=== PATIENT | male | born 1960 | race Caucasian/White ===

== ENCOUNTER 2017-10-28 18:44 | Observation (INO) | payer SELFPAY ==
--- NOTE | 2017-10-28 19:38 | RADIOLOGY REPORT (SQ) ---
EXAM DESCRIPTION: CHEST SINGLE VIEW COMPLETED DATE/TIME: 10/28/2017 7:31 pm REASON FOR STUDY: chest pain COMPARISON: 07/23/2015 EXAM PARAMETERS: NUMBER OF VIEWS: One view. TECHNIQUE: Single frontal radiographic view of the chest acquired. RADIATION DOSE: NA LIMITATIONS: None. FINDINGS: LUNGS AND PLEURA: No opacities, masses or pneumothorax. No pleural effusion. MEDIASTINUM AND HILAR STRUCTURES: No masses. Contour normal. HEART AND VASCULAR STRUCTURES: Heart normal in size. Normal vasculature. BONES: No acute findings. HARDWARE: None in the chest. OTHER: No other significant finding. IMPRESSION: NO ACUTE RADIOGRAPHIC FINDING IN THE CHEST. TECHNICAL DOCUMENTATION: JOB ID: [id number]- All Rights Reserved
[2017-10-28 19:52] LABS: ABSOLUTE BASOPHILS # (AUTO) 0.1 10^3/uL (0.0-0.2); ABSOLUTE EOSINOPHILS # (AUTO) 0.2 10^3/uL (0.0-0.6); ABSOLUTE LYMPHOCYTES (AUTO) 2.4 10^3/uL (0.5-4.7); ABSOLUTE MONOCYTES (AUTO) 0.7 10^3/uL (0.1-1.4); ABSOLUTE NEUT (AUTO) 6.2 10^3/uL (1.7-8.2); BASOPHILS % (AUTO) 0.9 % (0-2); EOSINOPHILS % (AUTO) 1.8 % (0-6); HEMATOCRIT 47.6 % (37.9-51.0); HEMOGLOBIN 16.4 g/dL (13.5-17.0); HGB HCT DIFFERENCE 1.6; LYMPHOCYTES % (AUTO) 24.8 % (13-45); MEAN CORPUSCULAR HEMOGLOBIN 30.9 pg (27.0-33.4); MEAN CORPUSCULAR HGB CONC 34.4 g/dL (32.0-36.0); MEAN CORPUSCULAR VOLUME 90 fl (80-97); MONOCYTES % (AUTO) 7.6 % (3-13); RED BLOOD COUNT 5.29 10^6/uL (4.35-5.55); RED CELL DISTRIBUTION WIDTH 14.3 % (11.5-14.0); SEGMENTED NEUTROPHILS % (AUTO) 64.9 % (42-78); WHITE BLOOD COUNT 9.5 10^3/uL (4.0-10.5)
[2017-10-28] MEDS ORDERED: HYDROCHLOROTHIAZIDE 12.5 MG CAPSULE PO ONE (20:03)
[2017-10-28] MEDS: NITROGLYCERIN 0.4 MG/TAB 25 TAB/BOTTLE SL PRN (20:09)
[2017-10-28 20:11] LABS: ANION GAP 14 (5-19); BLOOD UREA NITROGEN 21 mg/dL (7-20); CALCIUM 9.2 mg/dL (8.4-10.2); CARBON DIOXIDE 24 mmol/L (22-30); CHLORIDE 101 mmol/L (98-107); GLUCOSE 206 mg/dL (75-110); POTASSIUM 4.2 mmol/L (3.6-5.0); SODIUM 138.6 mmol/L (137-145)
[2017-10-28] MEDS ORDERED: ASPIRIN 81 MG TABLET, CHEWABLE PO ONE (20:16)
[2017-10-28] MEDS ORDERED: MORPHINE SULFATE 10 MG/ML INJ IV PRN (20:25)
[2017-10-28] MEDS ORDERED: LANSOPRAZOLE 15 MG TAB.RAP.DR PO ONE (20:26)
[2017-10-28] MEDS ORDERED: ONDANSETRON HCL INJ/PF 4 MG/2 ML SDV IV PRN (20:26)
--- NOTE | 2017-10-28 20:27 | ER Document Report ---
ED General - General Chief Complaint: Chest Pain Stated Complaint: CHEST PAIN Time Seen by Provider: 10/28/17 19:14 Notes: Patient is a 57-year-old male with a past medical history of morbid obesity, active tobacco use, diabetes, hypertension, hyperlipidemia, who presents with 3 days of left-sided chest pain intermittently radiating into his left upper extremity. Chest pain is described as a constant, throbbing, pressure-like sensation over the left chest. Nothing improves or worsens that pain. He notes that he became short of breath today which is what prompted him to come to the hospital. He denies any history of similar episodes of chest pain in the past. He had a normal stress test 4 years ago. He has never had a cardiac catheterization. He notes that he does not have a primary care doctor and is not having any of his chronic medical conditions currently managed. TRAVEL OUTSIDE OF THE [place] IN LAST 30 DAYS: No - Related Data Allergies/Adverse Reactions: No Known Drug Allergies Allergy (Verified 10/28/17 18:46) Home Medications: Current Home Medications No Home Medications 10/28/17 [History] Past Medical History - General Information source: Patient - Social History Smoking Status: Current Every Day Smoker Frequency of alcohol use: Occasional Drug Abuse: None Family History: Reviewed & Not Pertinent Patient has suicidal ideation: No Patient has homicidal ideation: No - Past Medical History Cardiac Medical History: Reports: Hx Hypertension - Untreated Renal/ Medical History: Denies: Hx Peritoneal Dialysis Psychiatric Medical History: Reports: Hx Depression Past Surgical History: Reports: Hx Orthopedic Surgery - R knee surgery - Immunizations Immunizations up to date: Yes Hx Diphtheria, Pertussis, Tetanus Vaccination: Yes Review of Systems - Review of Systems Notes: Constitutional: Negative for fever. HENT: Negative for sore throat. Eyes: Negative for visual changes. Cardiovascular: Positive for chest pain. Respiratory: Positive for shortness of breath. Gastrointestinal: Negative for abdominal pain, vomiting or diarrhea. Genitourinary: Negative for dysuria. Musculoskeletal: Negative for back pain. Skin: Negative for rash. Neurological: Negative for headaches, weakness or numbness. 10 point ROS negative except as marked above and in HPI. Physical Exam - Vital signs Vitals: Temp Pulse Resp BP Pulse Ox 98.6 F 91 20 202/111 H 96 10/28/17 19:06 10/28/17 19:06 10/28/17 19:06 10/28/17 19:06 10/28/17 19:06 Interpretation: Hypertensive Notes: PHYSICAL EXAMINATION: GENERAL: Well-appearing, well-nourished and in no acute distress. HEAD: Atraumatic, normocephalic. EYES: Pupils equal round and reactive to light, extraocular movements intact, sclera anicteric, conjunctiva are normal. ENT: nares patent, oropharynx clear without exudates. Moist mucous membranes. NECK: Normal range of motion, supple without lymphadenopathy LUNGS: Breath sounds clear to auscultation bilaterally and equal. No wheezes rales or rhonchi. HEART: Regular rate and rhythm without murmurs ABDOMEN: Soft, nontender, normoactive bowel sounds. No guarding, no rebound. No masses appreciated. EXTREMITIES: Normal range of motion, no pitting or edema. No cyanosis. NEUROLOGICAL: No focal neurological deficits. Moves all extremities spontaneously and on command. PSYCH: Normal mood, normal affect. SKIN: Warm, Dry, normal turgor, no rashes or lesions noted. Course - Re-evaluation Re-evalutation: 10/28/17 20:22 Patient presents with a chest pain history that is somewhat worrisome for a cardiac origin particularly given his extensive risk factors and absence of any outpatient primary care to manage these chronic conditions. Patient presents with 3 days of left-sided chest pain with intermittent radiation to the left arm and today developed shortness of breath. EKG does not show any acute ischemic changes but does show some T-wave flattening in the lateral leads that was not present on EKG from 2015. Patient also has a history of diabetes, hypertension, and morbid obesity. He is also an active smoker. He is not managing any of these chronic conditions. His troponin also returns at an indeterminate level at 0.051. Chest pain relieved with nitroglycerin. Heart score is 6 and patient will be admitted as he is quite high risk HEART Score: History:1 EC Age:1 Risk Factors:2 Troponin:1 Total: 6 - Vital Signs Vital signs: Temp Pulse Resp BP Pulse Ox 97.6 F 78 20 167/93 H 99 10/29/17 00:04 10/29/17 00:04 10/29/17 00:04 10/29/17 00:04 10/29/17 00:04 - Laboratory Result Diagrams: 10/28/17 19:35 10/28/17 19:35 Laboratory results interpreted by me: 10/28/17 10/28/17 10/28/17 19:35 19:35 19:35 RDW 14.3 H BUN 21 H Glucose 206 H Hemoglobin A1c % 7.4 H - Diagnostic Test Radiology reviewed: Image reviewed, Reports reviewed Radiology results interpreted by me: 10/28/17 20:27 Chest x-ray: No acute infiltrate or pneumothorax - EKG Interpretation by Me Additional EKG results interpreted by me: 10/28/17 20:27 Normal sinus rhythm. T-wave flattening in V4 through 6 not present on a prior EKG from 2015. No ST elevations or depressions. QTC is 480 Discharge - Discharge Clinical Impression: Malignant hypertensive urgency, Tobacco dependency, Morbid obesity Chest pain Qualifiers: Chest pain type: unspecified Qualified Code(s): R07.9 - Chest pain, unspecified Diabetes mellitus type II, uncontrolled Qualifiers: Diabetes mellitus complication status: with unspecified complications Diabetes mellitus intermediate designer insulin use: without intermediate designer use Qualified Code(s): E11.8 - Type 2 diabetes mellitus with unspecified complications Condition: Fair Disposition: ADMITTED OBSERVATION Admitting Provider: Hospitalist [facility] Unit Admitted: Telemetry
[2017-10-28] MEDS ORDERED: NITROGLYCERIN 2% OINTMENT 1 GM PACKET TP ONE (21:00)
[2017-10-28] MEDS: LOSARTAN POTASSIUM 25 MG TABLET PO SCH (21:04)
[2017-10-28] MEDS: ATORVASTATIN CALCIUM 40 MG TABLET PO SCH (21:04)
[2017-10-28] MEDS: METOPROLOL SUCCINATE 25 MG TAB.SR.24H PO SCH (21:05)
[2017-10-28] MEDS: ENOXAPARIN SODIUM INJ 150 MG/1 ML DISP.SYRIN SUBCUT SCH (21:20)
--- NOTE | 2017-10-28 21:54 | EKG REPORT ---
SEVERITY:- ABNORMAL ECG - SINUS RHYTHM BORDERLINE LEFT AXIS DEVIATION CONSIDER ANTEROSEPTAL INFARCT ABNORMAL T, CONSIDER ISCHEMIA, LATERAL LEADS BORDERLINE PROLONGED QT INTERVAL : Confirmed by: Carmencita Garibay 28-Oct-2017 21:53:49
[2017-10-28 21:55] LABS: URINE BARBITURATES SCREEN NEGATIVE; URINE METHADONE SCREEN NEGATIVE; URINE PHENCYCLIDINE SCREEN NEGATIVE
--- NOTE | 2017-10-28 21:55 | EKG REPORT ---
SEVERITY:- ABNORMAL ECG - SINUS RHYTHM FIRST DEGREE AV BLOCK LEFT ATRIAL ABNORMALITY CONSIDER ANTEROSEPTAL INFARCT ABNORMAL T, CONSIDER ISCHEMIA, LATERAL LEADS BORDERLINE PROLONGED QT INTERVAL : Confirmed by: Carmencita Garibay 28-Oct-2017 21:54:21
[2017-10-28 21:58] LABS: CREATINE KINASE MB 2.29 ng/mL (<4.55); TROPONIN I 0.05 ng/mL
[2017-10-28 22:28] LABS: URINE OPIATES LOW UNCONFIRMED POSITIVE
[2017-10-28] MEDS ORDERED: LEVOTHYROXINE SODIUM 0.1 MG TABLET PO ONE (23:02)
[2017-10-28] MEDS ORDERED: ENALAPRILAT DIHYDRATE INJ/PF 2.5 MG/2 ML SDV IV ONE ×2 (23:03→23:38)
[2017-10-28] MEDS: NITROGLYCERIN 2% OINTMENT 1 GM PACKET TP SCH (23:56)
[2017-10-29] MEDS ORDERED: DEXTROSE 50%-WATER 25 GM/50 ML DISP.SYRIN IV PRN ×2 (00:30)
[2017-10-29] MEDS ORDERED: GLUCAGON,HUMAN RECOMB 1 MG INJ IM PRN (00:30)
[2017-10-29] MEDS ORDERED: DEXTROSE 40% GEL 15 GM TUBE PO PRN ×2 (00:30)
[2017-10-29] MEDS ORDERED: INSULIN LISPRO 100 UNIT/ML 3 ML VIAL SUBCUT PRN (00:30)
[2017-10-29 00:32] LABS: FREE T3 3.86 pg/mL (2.77-5.27)
[2017-10-29] MEDS: MORPHINE SULFATE 10 MG/ML INJ IV PRN ×5 (00:37→21:08)
[2017-10-29] MEDS ORDERED: ENALAPRILAT DIHYDRATE INJ/PF 2.5 MG/2 ML SDV IV PRN (00:39)
--- NOTE | 2017-10-29 00:41 | PDOC H&P ---
History of Present Illness Admission Date/PCP: 10/28/17 20:26 History of Present Illness: SONIYA LUEVANO is a 57 year old male with past medical history of Graves' disease status post ablation then hypothyroid, diabetes mellitus, hypertension, TIA, tobacco abuse who currently takes no medication who presents to the emergency department 3 days of left-sided chest pain. Reports that it is a chest heaviness and kind of a dull throb that radiates to his left arm. He reports it has been constant over the last 3 days. He reports associated diaphoresis and shortness of breath. He does report a cough that is productive of clear sputum and reports that he has been trying to quit smoking. He believed he did not need medication because he has been intentionally trying to lose weight. He reports a 50 pound weight loss over the past year. Patient reports no exacerbating or alleviating factors. He is referred to the hospitalist service for chest pain Past Medical History Cardiac Medical History: Reports: Hyperlipidema, Hypertension - Untreated Endocrine Medical History: Reports: Diabetes Mellitus Type 2, Hyperthyroidism, Hypothyroidism, Obesity Psychiatric Medical History: Reports: Depression Past Surgical History Past Surgical History: Reports: Orthopedic Surgery - R knee surgery Social History Smoking Status: Current Every Day Smoker Cigarettes Packs Per Day: 1 Frequency of Alcohol Use: None Hx Recreational Drug Use: Yes - SINCE Drugs: Cocaine, Marijuana, Other Hx Prescription Drug Abuse: No - Advance Directive Resuscitation Status: Do Not Resuscitate Surrogate healthcare decision maker:: Jevon or Ambika Guaman, friends Family History Family History: None Parental Family History Reviewed: No - Has not spoken to his family since he was a child Children Family History Reviewed: No Sibling(s) Family History Reviewed.: No Medication/Allergy Home Medications: No Home Medications 10/28/17 Allergies/Adverse Reactions: No Known Drug Allergies Allergy (Verified 10/28/17 18:46) Review of Systems Constitutional: ABSENT: chills, fever(s), headache(s), weight gain, weight loss Eyes: ABSENT: visual disturbances Ears: ABSENT: hearing changes Cardiovascular: PRESENT: chest pain. ABSENT: dyspnea on exertion, edema, orthropnea, palpitations Respiratory: PRESENT: cough, dyspnea. ABSENT: hemoptysis, sputum Gastrointestinal: ABSENT: abdominal pain, constipation, diarrhea, hematemesis, hematochezia, nausea, vomiting Genitourinary: ABSENT: dysuria, hematuria Musculoskeletal: ABSENT: joint swelling Integumentary: ABSENT: rash, wounds Neurological: ABSENT: abnormal gait, abnormal speech, confusion, dizziness, focal weakness, syncope Psychiatric: ABSENT: anxiety, depression, homidical ideation, suicidal ideation Endocrine: ABSENT: cold intolerance, heat intolerance, polydipsia, polyuria Hematologic/Lymphatic: ABSENT: easy bleeding, easy bruising Physical Exam Vital Signs: Temp Pulse Resp BP Pulse Ox 98.6 F 91 26 H 160/103 H 97 10/28/17 19:06 10/28/17 19:06 10/28/17 21:16 10/28/17 21:16 10/28/17 21:16 General appearance: PRESENT: mild distress - Diaphoretic and acutely ill- appearing, morbidly obese, well-developed, well-nourished Head exam: PRESENT: atraumatic, normocephalic Eye exam: PRESENT: conjunctiva pink, EOMI, periorbital swelling, PERRLA. ABSENT : scleral icterus Ear exam: PRESENT: normal external ear exam Mouth exam: PRESENT: moist, tongue midline Neck exam: ABSENT: JVD, lymphadenopathy, thyromegaly, tracheal deviation Respiratory exam: PRESENT: clear to auscultation rachell, symmetrical, tachypnea, unlabored. ABSENT: accessory muscle use, rales, retraction, rhonchi, wheezes Cardiovascular exam: PRESENT: RRR, +S1, +S2, tachycardia. ABSENT: diastolic murmur, gallop, rubs, systolic murmur Pulses: PRESENT: normal dorsalis pedis pul Vascular exam: PRESENT: normal capillary refill GI/Abdominal exam: PRESENT: normal bowel sounds, soft. ABSENT: distended, firm , guarding, mass, Fitzgerald's sign, organolmegaly, rebound, rigid, tenderness Rectal exam: PRESENT: deferred Extremities exam: PRESENT: full ROM, +1 edema. ABSENT: calf tenderness, clubbing Neurological exam: PRESENT: alert, awake, oriented to person, oriented to place , oriented to time, oriented to situation, CN II-XII grossly intact. ABSENT: motor sensory deficit Psychiatric exam: PRESENT: appropriate affect, normal mood. ABSENT: homicidal ideation, suicidal ideation Skin exam: PRESENT: dry, intact, warm. ABSENT: cyanosis, rash Results Laboratory Results: 10/28/17 10/28/17 10/28/17 19:35 19:35 19:35 WBC 9.5 Hgb 16.4 Hct 47.6 Plt Count 190 Sodium 138.6 Potassium 4.2 Chloride 101 Carbon Dioxide 24 Anion Gap 14 BUN 21 H Creatinine 1.20 Glucose 206 H Hemoglobin A1c % Calcium 9.2 Troponin I 0.051 TSH U Marijuana (THC) Screen 10/28/17 10/28/17 10/28/17 19:35 20:53 21:23 WBC Hgb Hct Plt Count Sodium Potassium Chloride Carbon Dioxide Anion Gap BUN Creatinine Glucose Hemoglobin A1c % 7.4 H Calcium Troponin I TSH 40.00 H U Marijuana (THC) Screen UNCONFIRMED POSITIVE EKG Comments: V3 through V6 T-wave inversions Impressions: Chest X-Ray 10/28/17 19:16 IMPRESSION: NO ACUTE RADIOGRAPHIC FINDING IN THE CHEST. Status: Imported from PACS Assessment & Plan - Diagnosis (1) Chest pain Qualifiers: Chest pain type: unspecified Qualified Code(s): R07.9 - Chest pain, unspecified Is this a current diagnosis for this admission?: Yes Plan: Place patient on telemetry observation. Monitor for arrhythmia or ST segment changes. Initiate patient on treatment dose Lovenox. Initiate patient on metoprolol, Lipitor, Cozaar, oxygen, nitroglycerin, morphine , and aspirin. Serial cardiac enzymes every 6 hours. Testing lipid panel in the morning. Will obtain stress test tomorrow due to patient's risk factors and concerning history of chest pain. (2) Malignant hypertensive urgency Is this a current diagnosis for this admission?: Yes Plan: Place patient on as needed enalapril (3) Hypothyroidism Is this a current diagnosis for this admission?: Yes Plan: We will start patient on Synthroid 0.1 mcg p.o. daily (4) Diabetes mellitus type II, uncontrolled Qualifiers: Diabetes mellitus complication status: with unspecified complications Diabetes mellitus senior care insulin use: without senior care use Qualified Code( s): E11.8 - Type 2 diabetes mellitus with unspecified complications; E11.65 - Type 2 diabetes mellitus with hyperglycemia; E11.65 - Type 2 diabetes mellitus with hyperglycemia; E11.65 - Type 2 diabetes mellitus with hyperglycemia; E11.65 - Type 2 diabetes mellitus with hyperglycemia Is this a current diagnosis for this admission?: Yes Plan: We will likely initiate patient on metformin and possibly glyburide. 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 Counseling lasted longer than 3 minutes. (6) NATHAN (obstructive sleep apnea) Is this a current diagnosis for this admission?: Yes Plan: Likely undiagnosed. Referred for outpatient sleep study (7) Morbid obesity Is this a current diagnosis for this admission?: Yes Plan: Patient is advised to engage actively in weight loss and increase activity as tolerated under the care of his primary care physician. (8) Noncompliance Is this a current diagnosis for this admission?: Yes Plan: Patient was diagnosed with the bulk of these problems approximately 2 years ago during an inpatient hospitalization at that time. Patient has not continued his medications as instructed at that time. He also did not go for follow-up. 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
[2017-10-29 03:26] LABS: HEMATOCRIT 46.6 % (37.9-51.0); HEMOGLOBIN 15.6 g/dL (13.5-17.0); HGB HCT DIFFERENCE 0.2; MEAN CORPUSCULAR HEMOGLOBIN 30.4 pg (27.0-33.4); MEAN CORPUSCULAR HGB CONC 33.6 g/dL (32.0-36.0); MEAN CORPUSCULAR VOLUME 90 fl (80-97); RED BLOOD COUNT 5.15 10^6/uL (4.35-5.55); RED CELL DISTRIBUTION WIDTH 13.8 % (11.5-14.0); WHITE BLOOD COUNT 10.3 10^3/uL (4.0-10.5)
[2017-10-29 03:39] LABS: CREATINE KINASE 80 U/L (55-170); Direct HDL 48 mg/dL (>40); TRIGLYCERIDES 202 mg/dL (<150)
[2017-10-29 03:52] LABS: CREATINE KINASE MB 2.35 ng/mL (<4.55); TROPONIN I 0.043 ng/mL
[2017-10-29 03:56] LABS: DIRECT LDL 154 mg/dL (<100)
[2017-10-29 03:59] LABS: VLDL CHOLESTEROL 40.4 mg/dL (10-31)
[2017-10-29] MEDS: NITROGLYCERIN 2% OINTMENT 1 GM PACKET TP SCH ×3 (05:00→17:59)
[2017-10-29] MEDS: LEVOTHYROXINE SODIUM 0.1 MG TABLET PO SCH (05:18)
--- NOTE | 2017-10-29 06:46 | EKG REPORT ---
SEVERITY:- ABNORMAL ECG - SINUS RHYTHM FIRST DEGREE AV BLOCK LEFT ATRIAL ABNORMALITY CONSIDER ANTEROSEPTAL INFARCT ABNORMAL T, CONSIDER ISCHEMIA, LATERAL LEADS BORDERLINE PROLONGED QT INTERVAL : Confirmed by: Carmencita Garibay 29-Oct-2017 06:45:37
[2017-10-29] MEDS ORDERED: HYDRALAZINE HCL INJ/PF 20 MG/1 ML SDV IV PRN (08:13)
[2017-10-29] MEDS: LOSARTAN POTASSIUM 25 MG TABLET PO SCH ×2 (09:17→21:08)
[2017-10-29] MEDS: ASPIRIN 325 MG TABLET, ENT COATED PO SCH (09:17)
[2017-10-29] MEDS: DOCUSATE SODIUM 100 MG CAPSULE PO SCH (09:17)
[2017-10-29] MEDS: ENOXAPARIN SODIUM INJ 150 MG/1 ML DISP.SYRIN SUBCUT SCH ×2 (09:25→21:08)
[2017-10-29] MEDS: METOPROLOL SUCCINATE 25 MG TAB.SR.24H PO SCH (09:26)
[2017-10-29 09:31] LABS: APPEARANCE,URINE CLEAR; BILIRUBIN,URINE NEGATIVE (NEGATIVE); GLUCOSE, URINE NEGATIVE (NEGATIVE); KETONES,URINE NEGATIVE (NEGATIVE); LEUKOCYTE ESTERASE,URINE NEGATIVE (NEGATIVE); NITRITE,URINE NEGATIVE (NEGATIVE); PROTEIN,URINE 30 mg/dL (NEGATIVE); URINE SPECIFIC GRAVITY 1.024; UROBILINOGEN,URINE NEGATIVE mg/dL (<2.0)
[2017-10-29 09:58] LABS: CREATINE KINASE MB 3.02 ng/mL (<4.55); TROPONIN I 0.035 ng/mL
[2017-10-29] MEDS ORDERED: FUROSEMIDE INJ/PF 20 MG/2 ML SDV IV ONE (11:31)
[2017-10-29] MEDS ORDERED: LISINOPRIL 10 MG TABLET PO ONE ×2 (12:00→22:30)
--- NOTE | 2017-10-29 13:36 | EKG REPORT ---
SEVERITY:- ABNORMAL ECG - SINUS RHYTHM FIRST DEGREE AV BLOCK PROBABLE LEFT ATRIAL ABNORMALITY PROBABLE ANTEROSEPTAL INFARCT, OLD BORDERLINE T WAVE ABNORMALITIES BORDERLINE PROLONGED QT INTERVAL : Confirmed by: Carmencita Garibay 29-Oct-2017 13:36:11
[2017-10-29 16:43] LABS: CREATINE KINASE MB 3.53 ng/mL (<4.55); TROPONIN I 0.031 ng/mL
--- NOTE | 2017-10-29 16:57 | PDOC PROGRESS REPORT ---
Subjective Progress Note for:: 10/29/17 Reason For Visit: CHEST PAIN Patient with multiple past medical history with noncompliance, tobacco abuse currently takes no medications at home he quit taking them. He has diabetes hypertension, morbid obesity, leg edema swelling hypothyroidism Graves' disease and TIAs. He has been having substernal chest pain for 3 days. Brought into the emergency room for evaluation and for stress test. Because his blood pressure was elevated last night and he was given a beta-johnny, stress test was on hold until tomorrow. Patient also is a smoker and a current marijuana, cocaine and opioid in his tox screen on admission and in the past. Physical Exam Vital Signs: Temp Pulse Resp BP Pulse Ox 97.4 F 71 18 168/99 H 96 10/29/17 05:04 10/29/17 05:12 10/29/17 05:04 10/29/17 05:12 10/29/17 05:06 Intake & Output 10/28/17 10/29/17 10/30/17 06:59 06:59 06:59 Intake Total 410 Balance 410 Weight 124.7 kg General appearance: PRESENT: no acute distress, well-developed, well-nourished Head exam: PRESENT: atraumatic, normocephalic Eye exam: PRESENT: conjunctiva pink, EOMI, PERRLA. ABSENT: scleral icterus Ear exam: PRESENT: normal external ear exam Mouth exam: PRESENT: moist, tongue midline Teeth exam: PRESENT: dental caries Neck exam: ABSENT: carotid bruit, JVD, lymphadenopathy, thyromegaly Respiratory exam: PRESENT: clear to auscultation rachell, decreased breath sounds, prolonged expiratory phas, unlabored, wheezes. ABSENT: rales, rhonchi Cardiovascular exam: PRESENT: RRR. ABSENT: diastolic murmur, rubs, systolic murmur Pulses: PRESENT: normal dorsalis pedis pul Vascular exam: PRESENT: normal capillary refill GI/Abdominal exam: PRESENT: distended, normal bowel sounds, soft. ABSENT: guarding, mass, organolmegaly, rebound, tenderness Rectal exam: PRESENT: deferred Extremities exam: PRESENT: full ROM. ABSENT: calf tenderness, clubbing, pedal edema Musculoskeletal exam: PRESENT: ambulatory Neurological exam: PRESENT: alert, awake, oriented to person, oriented to place , oriented to time, oriented to situation, CN II-XII grossly intact. ABSENT: motor sensory deficit Psychiatric exam: PRESENT: appropriate affect, normal mood. ABSENT: homicidal ideation, suicidal ideation Skin exam: PRESENT: dry, intact, warm. ABSENT: cyanosis, rash Results Laboratory Results: 10/29/17 02:59 10/28/17 10/28/17 10/29/17 20:53 23:42 02:59 WBC 10.3 RBC 5.15 Hgb 15.6 Hct 46.6 MCV 90 MCH 30.4 MCHC 33.6 RDW 13.8 Plt Count 179 Triglycerides Cholesterol LDL Cholesterol Direct VLDL Cholesterol HDL Cholesterol TSH 40.00 H Free T4 0.72 L Free T3 pg/mL 3.86 10/29/17 02:59 WBC RBC Hgb Hct MCV MCH MCHC RDW Plt Count Triglycerides 202 H Cholesterol 219.80 H LDL Cholesterol Direct 154 H VLDL Cholesterol 40.4 H HDL Cholesterol 48 TSH Free T4 Free T3 pg/mL 10/28/17 10/29/17 10/29/17 20:53 02:59 02:59 Creatine Kinase 80 CK-MB (CK-2) 2.29 2.35 Troponin I 0.050 0.043 Impressions: Chest X-Ray 10/28/17 19:16 IMPRESSION: NO ACUTE RADIOGRAPHIC FINDING IN THE CHEST. Assessment & Plan - Diagnosis (1) Morbid obesity Is this a current diagnosis for this admission?: Yes Plan: Encourage slow steady weight loss, diet modifications, increase activity with decrease in sedentary lifestyle (2) Chest pain Qualifiers: Chest pain type: unspecified Qualified Code(s): R07.9 - Chest pain, unspecified Is this a current diagnosis for this admission?: Yes Plan: EKG showed sinus rhythm, first-degree AV block, left atrial abnormality, consider anteroseptal infarct, abnormal T consider ischemia lateral leads, borderline prolonged QT interval, coronary etiologies consult Dr. Griffiths possible stress test in am (3) Malignant hypertensive urgency Is this a current diagnosis for this admission?: Yes Plan: Please do not give patient beta blockers for high blood pressure throughout the night for delay in treatment for stress (4) Drug abuse Plan: Patient was counseled regarding the need to cessation of illegal drug use (5) Diabetes mellitus type II, uncontrolled Qualifiers: Diabetes mellitus complication status: with oral complications Diabetes mellitus shelter insulin use: without shelter use Is this a current diagnosis for this admission?: Yes Plan: Poorly controlled diabetes will put in place and on insulin for coverage and would better manage (6) Noncompliance Is this a current diagnosis for this admission?: Yes Plan: Lifestyle modification encouraged and medical compliance (7) NATHAN (obstructive sleep apnea) Is this a current diagnosis for this admission?: Yes - Plan Summary Plan Summary: Stress test for her in the a.m. by Dr. Griffiths appreciate cardiology's input , change patient to lisinopril 20 mg p.o. twice daily he can have a one-time order hydralazine IV to bring his blood pressure down. Lasix 20 mg IV 1 today.
[2017-10-29] MEDS: ATORVASTATIN CALCIUM 40 MG TABLET PO SCH (21:08)
[2017-10-29 21:52] LABS: CREATINE KINASE MB 3.23 ng/mL (<4.55); TROPONIN I 0.034 ng/mL
[2017-10-29] MEDS ORDERED: LISINOPRIL 10 MG TABLET PO SCH (22:00)
[2017-10-29] MEDS: LISINOPRIL 10 MG TABLET PO SCH (22:53)
--- NOTE | 2017-10-29 23:04 | CONSULTATION REPORT E ---
Consultation Report NAME: SONIYA LUEVANO : 1960 AGE: 57Y DATE: 305 A TO: DANI NICOLE M.D. FROM: TRISTIN DE LA TORRE M.D. Requesting Physician REASON FOR CONSULTATION: Uncontrolled hypertension, chest pressure, shortness of breath and abnormal EKG. HISTORY OF PRESENT ILLNESS: Patient is a 57-year-old male with a past history of Graves disease, status post ablation; history of hypertension; diabetes mellitus; obstructive sleep apnea on CPAP, who states that due to financial reasons, stopped taking all his medications. His belief was that he was trying to lose weight and with losing weight, he thought he may not need medication for his blood pressure. The patient, since the last 3 days, has been having chest pressure with shortness of breath, which increased with exertion. The chest pressure lasted for about a half an hour to 1 hour of time, but was recurrent and occurred over 3 days. He also has diaphoresis. The patient denies any palpitations. There is no PND, orthopnea or syncope, TIA or CVA symptoms. The patient, when he came in, his blood pressure was elevated at 160/103. At present, the patient has no chest pressure or discomfort. There is no leg edema. There is no PND or orthopnea. The patient states that there is no recurrence of symptoms of TIA or CVA. PAST MEDICAL HISTORY: 1. History of hyperlipidemia. 2. History of diabetes mellitus type 2. He stopped taking his antidiabetic medications. 3. History of hyperthyroidism, status post thyroid ablation and the patient is now in hypothyroid state and is on replacement. 4. History of morbid obesity. 5. History of sleep apnea on CPAP. 6. The patient states many years ago he had a left facial droop, which lasted for about 1-1/2 days, and was told that he had a TIA. There was no recurrence. Whether this was a TIA or a Banerjee palsy is not clear, since records are not available. 7. He has no anxiety or depression. 8. There is no history of COPD or asthma, but the patient is a smoker. 9. There is no history of chronic kidney disease. PAST SURGICAL HISTORY: Positive for right knee surgery. FAMILY HISTORY: He states that he has not spoken to his family since he was a child, and hence not available. ALLERGIES: He has no known allergies. SOCIAL HISTORY: He is a current every day smoker. He smokes 1 pack of cigarettes per day. He is trying to quit. This patient is a FULL CODE. He states that his Religion brother and Religion sister are his surrogate healthcare decision-makers. MEDICATIONS: 1. Aspirin 325 mg p.o. daily. 2. Atorvastatin 40 mg p.o. at bedtime. 3. Hypoglycemic precautions with glucose 15 grams and 30 grams p.o. p.r.n. hypoglycemia. 4. Dextrose 50% 12.5 grams IV and 25 grams IV p.r.n. hypoglycemia. 5. Colace 100 mg p.o. daily. 6. She did get Vasotec 2.5 mg IV x1 and also is on Vasotec 2.5 mg IV q.6 hours p.r.n. 7. Lovenox 125 mg subcutaneously q.12 hours. 8. Lasix 20 mg IV x1. 9. Glucagon 1 mg IM p.r.n. hypoglycemia. 10. Hydralazine 10 mg IV q.8 hours p.r.n. 11. Accu-Cheks t.i.d. with sliding scale insulin coverage. 12. Levothyroxine 0.1 mg p.o. q. 6:00 a.m. 13. Lisinopril 20 mg p.o. x1 and 20 mg p.o. q.12 hours. 14. Losartan 25 mg p.o. q.12 hours. 15. Metoprolol 25 mg p.o. q.12 hours. 16. Nitropaste 2 inches ointment, 1 gram to chest wall q.6 hours. 17. Zofran 4 mg IV q.6 hours p.r.n. REVIEW OF SYSTEMS: CONSTITUTIONAL: Denies any fevers, chills or rigors. Complains of generalized weakness and fatigue. HEAD: Denies headaches or head injury. There is no dizziness. EYES: No history of amblyopia or diplopia. No history of amaurosis fugax. EARS: No history of hearing loss. No history of tinnitus. No history of recurrent ear infection. NOSE: No deviated nasal septum. No inflammation of the nasal mucous membrane. No history of hayfever. No history of nasal polyps. No history of nosebleeds. MOUTH: No history of altered taste sensation. No ulcers in the mouth. No bleeding to the gums. THROAT: There is no odynophagia or dysphagia. No history of recurrent sore throats. SKIN: There is no pruritus or yellowish discoloration of the skin. No history of skin cancer. No psoriasis. NECK: No neck pain. No painful or painless swelling of the leg. No goiter. LUNGS: The patient states that he has been having cough productive of clear sputum. There is no hemoptysis. There is no history of asthma or COPD. No history of pulmonary embolism. No history of pleuritic chest pain. No symptoms suggestive of upper respiratory infection or lower respiratory tract infection. History of sleep apnea on CPAP. CARDIAC: History of hypertension present. No history of DC. History of chest pressure, with exertional increase, with shortness of breath and diaphoresis since the last 3 days; may be related to his uncontrolled hypertension. No history of syncope. No history of palpitations. No history of leg edema. No history of PND or orthopnea. No prior history of coronary artery disease or DC. No prior history of congestive heart failure. GASTROINTESTINAL: No history of GERD. No history of peptic ulcer disease. No history of GI bleed. No history of fatty food intolerance. No abdominal pain. No altered bowel movements. MUSCULOSKELETAL: Denies arthritis or collagenous vascular disease. RENAL: No history of chronic kidney disease. No symptoms of UTI. No history of hematuria, pyuria or dysuria. No symptoms of enlarged prostate. 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 History of sleep apnea on CPAP. No history of headaches, migraines or seizures. No history of gait imbalance. PSYCHIATRIC: No history of anxiety or depression. No suicidal ideation. No history of homicidal ideation. VASCULAR: No history of calf or buttock claudication. No history of DVT. HEMATOLOGIC: No history of bleeding diathesis. No history of clotting disorders. PHYSICAL EXAMINATION: GENERAL: The patient is morbidly obese, but well-groomed. VITAL SIGNS: His temperature is 97.2 degrees Fahrenheit, pulse is 66 beats per minute, blood pressure is 116/99, respirations are 20 per minute. O2 sats are 99% on room air. HEAD: Atraumatic, normocephalic. EYES: Pupils are equal, round, regular, reactive to light and accommodation. Extraocular movements are normal. There is no conjunctival pallor. There is no scleral icterus. EARS: Tympanic membranes are intact. External auditory canals are clear. NOSE: There is no deviated nasal septum. There is no inflammation of the nasal mucosa. MOUTH: Mucous membranes of the mouth are moist. Tongue is moist. There are no ulcers. There is no bleeding from the gums. THROAT: There is no redness of the oropharynx. There are no exudates. SKIN: There are no skin rashes. There is no petechia or ecchymosis. There are no skin lesions. NECK: *------* There is no goiter. Trachea is central. LUNGS: Clear to auscultation and percussion. HEART: S1, S2 are heard. There is no S3 gallop. There is no S4 gallop. There is a systolic murmur at the left sternal border of the apex. There is no rub. ABDOMEN: Soft, nontender. There is no hepatosplenomegaly. Bowel sounds are well-heard. Abdomen is obese. There are no tender areas or masses. There is no hepatosplenomegaly. There is no rebound, guarding or rigidity. EXTREMITIES: Femorals are diminished. There are no femoral bruits. Leg pulses are diminished. There is no pedal edema. There is no DVT or cellulitis. There is no calf tenderness. There is no cyanosis or clubbing. CENTRAL NERVOUS SYSTEM: The patient is conscious, awake, alert, oriented x3, with no focal deficits. PSYCHIATRIC: The patient's judgment and insight are intact. His affect is normal. LABORATORY DATA: The patient's white count is 10,300, hemoglobin is 15.6, hematocrit is 46.6, platelet count is 179,000. The patient's urine opiate, methadone, barbiturates, phencyclidine, amphetamine, benzodiazepine, cocaine screen and marijuana screen in the urine are all negative. The patient's sodium is 138.6, potassium is 4.2, chloride is 101, CO2 is 24. The patient's BUN is 21, creatinine is 1.20. GFR is greater than 60. Glucose is 206. The patient's Troponin I is negative/indeterminate at 0.051, 0.050, 0.035, 0.031. The patient's TSH is 40, which is high. Free T4 is low at 0.72. Free T3 is 3.86. The patient's triglycerides are 2.02. His LDL cholesterol is elevated at 154. His HDL cholesterol is 48. The patient's initial electrocardiogram on the showed sinus rhythm, first-degree AV block, left atrial abnormality, consider anteroseptal infarct with lead placement, abnormal *------* ischemia, lateral leads. His subsequent EKGs are unchanged with evidence of lateral wall ischemia, including today's EKG. The patient's chest x-ray shows no acute findings. IMPRESSION: 1. Exertional chest pressure with shortness of breath and diaphoresis, with normal EKG, increases with exertion. Patient with multiple risk factors for coronary artery disease. Since a myocardial infarction has been ruled out, would strongly recommend the patient to have an intravenous Lexiscan Cardiolite stress test, which will be set up for tomorrow. Would recommend continuing the patient's aspirin and his anti-lipid medication. Continue metoprolol and his lisinopril and angiotensin-converting enzyme inhibitor. 2. Malignant hypertension. At present, blood pressure is slightly better. Would recommend stopping the patient's angiotensin receptor johnny and increasing the patient's angiotensin-converting enzyme to 40 mg p.o. b.i.d. Would stop the patient's Cozaar. 3. Abnormal EKG. Patient would most likely need an intravenous Lexiscan Cardiolite stress test. 4. Hypothyroidism. Patient's TSH is very much elevated. Continue replacement of thyroid in the form of Synthroid/levothyroxine. 5. Diabetes mellitus type 2, uncontrolled. Continue his current anti-diabetic medications. 6. Tobacco dependency. Patient has been counseled to stop smoking. Three minutes spent on this. Alternative methods for cessation of tobacco have been discussed with the patient. 7. Obstructive sleep apnea. Continue continuous positive airway pressure. 8. Morbid obesity. The patient, once it is proven he does not have any significant coronary artery disease, will be asked to follow a regular exercise program to lose weight. 9. Noncompliance. The importance of taking medication has been discussed with the patient. The risks of myocardial infarction, arrhythmia, sudden , congestive heart failure, development of cardiomyopathy, have been discussed with the patient in detail, if he does not take his antihypertensive, antidiabetic and thyroid replacement medication. Note that the patient was seen at 8:00 this morning and 45 minutes were spent on this patient. More than 50% of the time was spent on direct patient care. His medications have been reviewed and medications adjusted. Also discussed with other care-giving providers on the case. The procedure of IV Lexiscan has been discussed with the patient in detail. Note, medical decision-making is of high complexity. Discussed with other care-giving providers on the case and a management plan put into place for the treatment of this patient. DICTATING PHYSICIAN: DANI NICOLE M.D. [id number] PHY#: [id number] ID: [id number] JOB#: [id number] ACCT: [id number] cc:DANI NICOLE M.D. >
[2017-10-30] MEDS: NITROGLYCERIN 2% OINTMENT 1 GM PACKET TP SCH ×2 (00:18→05:21)
[2017-10-30] MEDS: LEVOTHYROXINE SODIUM 0.1 MG TABLET PO SCH (06:02)
[2017-10-30] MEDS: MORPHINE SULFATE 10 MG/ML INJ IV PRN ×4 (06:03→20:44)
[2017-10-30] MEDS: ASPIRIN 325 MG TABLET, ENT COATED PO SCH (10:25)
[2017-10-30] MEDS: DOCUSATE SODIUM 100 MG CAPSULE PO SCH (10:25)
[2017-10-30] MEDS: LISINOPRIL 10 MG TABLET PO SCH ×2 (10:25→23:53)
[2017-10-30] MEDS: ENOXAPARIN SODIUM INJ 150 MG/1 ML DISP.SYRIN SUBCUT SCH ×2 (10:31→23:57)
[2017-10-30] MEDS ORDERED: REGADENOSON INJ 0.4 MG/5 ML DISP.SYRIN IV ONE (11:34)
--- NOTE | 2017-10-30 13:20 | DRAGON STRESS TEST REPORT ---
Intravenous Lexiscan Cardiolite stress test using single photon emmision computerized tomography. Date of procedure: 10/30/2017. Ordering Provider: Dr. Grisel Griffiths. Patient's status: In Patient. Indication: Chest pain, with shortness of breath and diaphoresis. Age, coronary risk factors: Hypertension, diabetes mellitus, tobacco abuse disorder, and hyperlipidemia Resting EKG: Sinus rhythm T inversion in leads I and aVL. Stress EKG: No changes of ischemia. The patient had no chest pain or discomfort, and there were no arrhythmias seen. The patient complained of dizziness transiently but was hemodynamically stable. Reason for termination: Protocol. Conclusions: Normal EKG and hemodynamic response to IV Lexiscan. Nuclear data: At rest the patient was given 16.50 millicuries of technetium 99m sestamibi injected intravenously. As per protocol rest non gated SPECT images were obtained. Subsequently the patient was given intravenous Lexiscan at a dose of 0.4 mg in 5 mL intravenously, followed by flush with normal saline. Subsequently the stress dose of 48.7 millicuries of technetium 99m sestamibi was injected intravenously. As per protocol stress gated images were obtained. Nuclear interpretation: Review of images showed that there was a perfusion defect involving the inferior wall which was more pronounced in the stress images compared with a mild perfusion defect in the rest images. This area of the inferior wall had mildly decreased motion contraction and thickening. The rest of the segments of the myocardium had normal perfusion at rest, and normal perfusion post stress with IV Lexiscan. The rest of the segments of the myocardium had normal motion, contraction, and thickening by gated study. T. I D. ratio was normal at . Computer read rest, and stress left ventricular ejection fraction were 35 %, and 33 %, respectively. Conclusion: 1. There is scintigraphic evidence of Lexiscan induced myocardial ischemia of moderate intensity involving the inferior wall in a setting of mild inferior wall scar.. 2. There is scintigraphic evidence of mild myocardial infarction/scar involving the inferior wall. Recommendations: 1. Aggressive treatment of coronary artery disease with statins aspirin beta blockers and nitrates. 2. Strongly recommend cardiac catheterization to define coronary anatomy and for possible revascularization options. 3. Please check echo for LV ejection fraction correlation. 4. Aggressive risk factor modification, and treating the underlying co- morbidities. [facility]
[2017-10-30] MEDS ORDERED: NITROGLYCERIN 10 MG (0.4 MG/HR) PATCH.TD24 TD ONE (14:30)
[2017-10-30] MEDS: NITROGLYCERIN 0.4 MG/TAB 25 TAB/BOTTLE SL PRN (20:29)
[2017-10-30] MEDS ORDERED: HYDROCHLOROTHIAZIDE 25 MG TABLET PO ONE (20:45)
--- NOTE | 2017-10-30 22:13 | PROGRESS NOTE E ---
Progress Note NAME: SONIYA LUEVANO : 1960 AGE: 57Y DATE: 10/30/2017 ROOM: 305 SUBJECTIVE: The patient denies any further chest pain or discomfort. There is no PND or orthopnea. There is no leg edema. There is no arrhythmia seen. The patient has no further shortness of breath or any symptoms suggestive of angina. There are no TIA or CVA symptoms. There is no pedal edema. The patient underwent IV Lexiscan Cardiolite stress test in the morning uneventfully. OBJECTIVE: GENERAL: The patient is morbidly obese, in no acute distress. VITAL SIGNS: He is afebrile with a temperature of 97.3 degrees Fahrenheit. Pulse is 70 beats per minute. Blood pressure 157/86, respirations are 18 per minute, 02 saturations are 97% on room air. HEENT: Head is normocephalic, atraumatic. Eyes: Pupils are equal, round, regular and reactive to light and accommodation. Extraocular movements are normal. There is no conjunctival pallor. There is no scleral icterus. ENT is negative. NECK: Supple. There is no JVD. Carotids are equal. There is no bruit. There is no lymphadenopathy. There is no goiter. There is no neck stiffness. LUNGS: Clear to auscultation and percussion without any rhonchi, rales or wheezing. HEART: S1 and S2 are heard. There is no S3 gallop. There is no S4 gallop. There is a systolic murmur in the left sternal border and apex. There is no rub. ABDOMEN: Soft, obese, nontender. There is no hepatosplenomegaly. Bowel sounds are well heard. Abdomen is obese. There are no tender areas or masses. There is no hepatosplenomegaly. There is no rebound, guarding or rigidity. EXTREMITIES: Femorals are diminished. The femorals are deep. There are no femoral bruits. Leg pulses are diminished. There is no pedal edema. There is no DVT or cellulitis. There is no calf tenderness. There is no cyanosis or clubbing. CENTRAL NERVOUS SYSTEM: The patient is conscious, awake, alert x3 with no focal deficits. PSYCHIATRIC: The patient's judgment and insight are intact. His affect is normal. DIAGNOSTIC DATA: The patient's IV Lexiscan Cardiolite stress test shows moderate reversible ischemia in a setting of mild scar involving the inferior wall. The patient's blood sugar is 146. IMPRESSION: 1. ABNORMAL CARDIOVASCULAR FUNCTION TEST, THAT IS ABNORMAL STRESS TEST WITH THE STRESS TEST SHOWING MODERATE REVERSIBLE ISCHEMIA IN A SETTING OF SCAR INVOLVING THE INFERIOR WALL. I strongly recommend cardiac catheterization in view of the patient's age and multiple risk factors for coronary artery disease. 2. EXERTIONAL CHEST PRESSURE WITH SHORTNESS OF BREATH AND DIAPHORESIS, WITH INCREASE IN EXERTION AND AN ABNORMAL STRESS TEST. Strongly recommend cardiac catheterization. Continue current medications including nitrates, beta-blockers, aspirin and statin. 3. MALIGNANT HYPERTENSION. Blood pressure much better. 4. ABNORMAL EKG. Remains stable. ST inversion in I and aVL. 5. HYPOTHYROIDISM. The patient's TSH is very much elevated. Continue thyroid replacement. 6. DIABETES MELLITUS TYPE 2, UNCONTROLLED. Continue his current anti-diabetic medication. 7. TOBACCO DEPENDENCY. The patient at present is on Nicoderm patch. The patient has been counseled to stop smoking. 8. OBSTRUCTIVE SLEEP APNEA. Continue CPAP. 9. MORBID OBESITY. Once the patient has a cardiac catheterization and we found out the coronary anatomy and subsequently the patient will be placed on an exercise program to lose weight. 10. NONCOMPLIANCE. The importance of compliance with blood pressure, diabetic and anti-lipid medications have been discussed with the patient in detail. Will recheck the patient's PT, INR, CBC, SMA-7 and TSH in the a.m. Will talk to [facility] tomorrow, that is 10/31/2017 to see if they would accept him in transfer for cardiac catheterization to be done on 11/01/2017 in [facility]. This has been discussed with the patient. The patient will be shown the cardiac catheterization teaching video. Note: 40 minutes spent on this patient with more than 50% of the time spent on direct patient care. His medications have been reviewed and labs ordered. Medical decision-making is still highly complex in view of the need for cardiac catheterization. The risks, benefits, and complications of cardiac catheterization have all been discussed with the patient. Thanking you. DICTATING PHYSICIAN: DANI NICOLE M.D. [id number] PHY#: [id number] ID: [id number] JOB#: [id number] ACCT: [id number] cc: >
[2017-10-30] MEDS: ATORVASTATIN CALCIUM 40 MG TABLET PO SCH (23:52)
[2017-10-30] MEDS: METOPROLOL SUCCINATE 25 MG TAB.SR.24H PO SCH (23:54)
[2017-10-31] MEDS: MORPHINE SULFATE 10 MG/ML INJ IV PRN ×3 (04:18→19:15)
[2017-10-31] MEDS: LEVOTHYROXINE SODIUM 0.1 MG TABLET PO SCH (05:10)
[2017-10-31 05:22] LABS: PROTHROMBIN TIME 12.9 SEC (11.4-15.4)
[2017-10-31 05:23] LABS: PARTIAL THROMBOPLASTIN TIME 41.8 SEC (23.5-35.8)
[2017-10-31 05:28] LABS: ALANINE AMINOTRANSFERASE 42 U/L (21-72); ALBUMIN 4.1 g/dL (3.5-5.0); ALKALINE PHOSPHATASE 92 U/L (38-126); ANION GAP 11 (5-19); ASPARTATE AMINO TRANSFERASE 29 U/L (17-59); BILIRUBIN,DIRECT 0.2 mg/dL (0.0-0.4); BILIRUBIN,TOTAL 0.5 mg/dL (0.2-1.3); BLOOD UREA NITROGEN 27 mg/dL (7-20); CALCIUM 9.2 mg/dL (8.4-10.2); CARBON DIOXIDE 28 mmol/L (22-30); CHLORIDE 99 mmol/L (98-107); CREATININE RESULT 1.14 mg/dL (0.52-1.25); GLUCOSE 131 mg/dL (75-110); MAGNESIUM 2.1 mg/dL (1.6-2.3); POTASSIUM 4.5 mmol/L (3.6-5.0); TOTAL PROTEIN 6.7 g/dL (6.3-8.2)
[2017-10-31] MEDS: NITROGLYCERIN 10 MG (0.4 MG/HR) PATCH.TD24 TD SCH (09:12)
[2017-10-31] MEDS: DOCUSATE SODIUM 100 MG CAPSULE PO SCH (09:14)
[2017-10-31] MEDS: ASPIRIN 325 MG TABLET, ENT COATED PO SCH (09:14)
[2017-10-31] MEDS: METOPROLOL SUCCINATE 25 MG TAB.SR.24H PO SCH ×2 (09:14→21:18)
[2017-10-31] MEDS: LISINOPRIL 10 MG TABLET PO SCH ×2 (09:14→21:17)
[2017-10-31] MEDS: HYDROCHLOROTHIAZIDE 25 MG TABLET PO SCH (09:15)
[2017-10-31] MEDS: ENOXAPARIN SODIUM INJ 150 MG/1 ML DISP.SYRIN SUBCUT SCH ×2 (09:15→21:16)
--- NOTE | 2017-10-31 12:04 | PDOC PROGRESS REPORT ---
Subjective Progress Note for:: 10/30/17 Subjective:: Chest pain rule out. Patient had a abnormal stress test waiting for the results for possible transfer by cardiology Reason For Visit: CHEST PAIN Physical Exam Vital Signs: Temp Pulse Resp BP Pulse Ox 98.2 F 72 18 166/88 H 96 10/31/17 08:56 10/31/17 08:56 10/31/17 08:56 10/31/17 08:56 10/31/17 08:56 Intake & Output 10/30/17 10/31/17 11/01/17 06:59 06:59 06:59 Intake Total 1217 2209 Balance 1217 2209 Weight 124.9 kg 122 kg General appearance: PRESENT: no acute distress, well-developed, well-nourished Head exam: PRESENT: atraumatic, normocephalic Eye exam: PRESENT: conjunctiva pink, EOMI, PERRLA. ABSENT: scleral icterus Ear exam: PRESENT: normal external ear exam Mouth exam: PRESENT: moist, tongue midline Neck exam: ABSENT: carotid bruit, JVD, lymphadenopathy, thyromegaly Respiratory exam: PRESENT: clear to auscultation rachell. ABSENT: rales, rhonchi, wheezes Cardiovascular exam: PRESENT: RRR. ABSENT: diastolic murmur, rubs, systolic murmur Pulses: PRESENT: normal dorsalis pedis pul Vascular exam: PRESENT: normal capillary refill GI/Abdominal exam: PRESENT: normal bowel sounds, soft. ABSENT: distended, guarding, mass, organolmegaly, rebound, tenderness Rectal exam: PRESENT: deferred Extremities exam: PRESENT: full ROM. ABSENT: calf tenderness, clubbing, pedal edema Neurological exam: PRESENT: alert, awake, oriented to person, oriented to place , oriented to time, oriented to situation, CN II-XII grossly intact. ABSENT: motor sensory deficit Psychiatric exam: PRESENT: appropriate affect, normal mood. ABSENT: homicidal ideation, suicidal ideation Skin exam: PRESENT: dry, intact, warm. ABSENT: cyanosis, rash Results Laboratory Results: 10/29/17 02:59 10/31/17 04:00 10/31/17 10/31/17 04:00 04:00 Sodium 138.0 Potassium 4.5 Chloride 99 Carbon Dioxide 28 Anion Gap 11 BUN 27 H Creatinine 1.14 Est GFR ( Amer) > 60 Est GFR (Non-Af Amer) > 60 Glucose 131 H Calcium 9.2 Magnesium 2.1 Total Bilirubin 0.5 AST 29 ALT 42 Alkaline Phosphatase 92 Total Protein 6.7 Albumin 4.1 TSH 24.40 H 10/28/17 10/29/17 10/29/17 20:53 02:59 02:59 Creatine Kinase 80 CK-MB (CK-2) 2.29 2.35 Troponin I 0.050 0.043 10/29/17 10/29/17 10/29/17 09:10 09:10 15:35 Creatine Kinase 80 121 CK-MB (CK-2) 3.02 Troponin I 0.035 10/29/17 10/29/17 15:35 21:00 Creatine Kinase CK-MB (CK-2) 3.53 3.23 Troponin I 0.031 0.034 Impressions: Chest X-Ray 10/28/17 19:16 IMPRESSION: NO ACUTE RADIOGRAPHIC FINDING IN THE CHEST. Assessment & Plan - Diagnosis (1) Chest pain Qualifiers: Chest pain type: unspecified Qualified Code(s): R07.9 - Chest pain, unspecified Is this a current diagnosis for this admission?: Yes Plan: EKG showed sinus rhythm, first-degree AV block, left atrial abnormality, consider anteroseptal infarct, abnormal T consider ischemia lateral leads, borderline prolonged QT interval, coronary etiologies consult Dr. 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 Will coordinate with them in the a.m. for transfer
--- NOTE | 2017-10-31 12:11 | PDOC TRANSFER SUMMARY ---
General Admission Date/PCP: 10/28/17 20:26 Resuscitation Status: Do Not Resuscitate - Transfer Diagnosis (1) Chest pain Is this a current diagnosis for this admission?: Yes Diagnosis Summary: Patient was admitted under hospitalist service for chest pain. He now request transfer to [facility] in [place] for abnormal EKG, had an abnormal stress test will need a heart catheterization per Dr. Griffiths account director. Please see cardiology workup. (2) Morbid obesity Is this a current diagnosis for this admission?: Yes (3) Malignant hypertensive urgency Is this a current diagnosis for this admission?: Yes Diagnosis Summary: Patient blood pressure improved with some IV medications. He been noncompliant in taking his home medications quit taking all of his antihypertensive meds (4) Diabetes mellitus type II, uncontrolled Is this a current diagnosis for this admission?: Yes (5) Noncompliance Is this a current diagnosis for this admission?: Yes Diagnosis Summary: Patient was brought to the hospital with acute onset of chest pain. Which was ongoing and he recommended to have frequent uses of morphine while he was here. Patient was made n.p.o. prior to transfer in the event if he needed heart catheterization and further cardiac intervention. But he went downstairs and tried to get food from the cafeteria was denied. So he is asked his family to bring him in some food today. Medical noncompliance patient abruptly stopped taking all his medications has not had any several weeks prior to this hospitalization (6) NATHAN (obstructive sleep apnea) Is this a current diagnosis for this admission?: Yes (7) Hyperlipemia, mixed Diagnosis Summary: Noncompliant with statin medications (9) Drug abuse Diagnosis Summary: Patient was positive for opioids, marijuana and a history of cocaine use - Transfer Medications Home Medications: No Home Medications 10/28/17 Transfer Medications: Current Medications Aspirin (Ecotrin 325 Mg Ec Tablet) 325 mg PO DAILY [facility] Stop: 11/28/17 09:59 Last Admin: 10/31/17 09:14 Dose: 325 mg Atorvastatin Calcium (Lipitor 40 Mg Tablet) 40 mg PO QHS [facility] Stop: 11/27/17 21:59 Last Admin: 10/30/17 23:52 Dose: 40 mg Dextrose (Dextrose Inj 50% Syringe (25 Gm/50 Ml)) 12.5 gm IV PRN PRN; Protocol PRN Reason: FOR BG 50-69 IN ALERT PATIENT Stop: 11/28/17 00:29 Dextrose (Dextrose Inj 50% Syringe (25 Gm/50 Ml)) 25 gm IV PRN PRN PRN Reason: Protocol Stop: 11/28/17 00:29 Docusate Sodium (Colace 100 Mg Capsule) 100 mg PO DAILY [facility] Stop: 11/28/17 09:59 Last Admin: 10/31/17 09:14 Dose: 100 mg Enalaprilat (Vasotec Inj/Pf 2.5 Mg/2 Ml Sdv) 2.5 mg IV Q6HP PRN PRN Reason: Systolic greater than 165 Stop: 11/28/17 00:38 Enoxaparin Sodium (Lovenox Inj 150 Mg/1 Ml Disp.Syrin) 125 mg SUBCUT Q12 [facility] Stop: 11/27/17 21:59 Last Admin: 10/31/17 09:15 Dose: 125 mg Glucagon (Glucagen Inj 1 Mg Vial) 1 mg IM PRN PRN; Protocol PRN Reason: Evaluate for BG < 70 Stop: 11/28/17 00:29 Glucose (Glutose 40% Gel 15 Gm Tube) 15 gm PO PRN PRN; Protocol PRN Reason: FOR BG 50-69 IN ALERT PATIENT Stop: 11/28/17 00:29 Glucose (Glutose 40% Gel 15 Gm Tube) 30 gm PO PRN PRN; Protocol PRN Reason: FOR BG < 50 IN ALERT PATIENT Stop: 11/28/17 00:29 Hydralazine HCl (Apresoline Inj/Pf 20 Mg/1 Ml Sdv) 10 mg IV Q3HP PRN Stop: 11/28/17 08:12 Hydrochlorothiazide (Hydrodiuril 25 Mg Tablet) 25 mg PO DAILY [facility] Stop: 11/29/17 20:44 Last Admin: 10/31/17 09:15 Dose: 25 mg Insulin Human Lispro (Humalog Insulin 100 Unit/1 Ml 3 Ml Vial) 0 - 12 unit SUBCUT ACHSP PRN PRN Reason: Protocol Stop: 11/28/17 00:29 Levothyroxine Sodium (Synthroid 0.1 Mg Tablet) 0.1 mg PO Q6AM [facility] Stop: 11/27/17 23:14 Last Admin: 10/31/17 05:10 Dose: 0.1 mg Lisinopril (Prinivil 10 Mg Tablet) 40 mg PO Q12 [facility] Stop: 11/28/17 21:59 Last Admin: 10/31/17 09:14 Dose: 40 mg Metoprolol Succinate (Toprol Xl 25 Mg Tab.Sr) 50 mg PO Q12 [facility] Stop: 11/29/17 21:59 Last Admin: 10/31/17 09:14 Dose: 50 mg Morphine Sulfate (Morphine 10 Mg/Ml Inj) 1 mg IV Q4HP PRN Stop: 11/07/17 08:30 Last Admin: 10/31/17 09:21 Dose: 1 mg Nitroglycerin (Nitro-Dur 10 Mg (0.4mg/Hr) Transdermal Patch) 1 each TD DAILY [facility] Stop: 11/30/17 09:59 Last Admin: 10/31/17 09:12 Dose: 1 each Ondansetron HCl (Zofran Inj/Pf 4 Mg/2 Ml Sdv) 4 mg IV Q6HP PRN PRN Reason: nausea Stop: 11/27/17 20:25 Last Admin: 10/29/17 05:18 Dose: 4 mg Sodium Chloride (Saline Flush 2.5 Ml Monoject Prefil Syrin) 2.5 ml IV Q8 [facility] Stop: 11/27/17 21:59 Last Admin: 10/31/17 04:18 Dose: 2.5 ml - Allergies Allergies/Adverse Reactions: No Known Drug Allergies Allergy (Verified 10/28/17 18:46) Physical Exam Vital Signs: Temp Pulse Resp BP Pulse Ox 98.2 F 72 18 166/88 H 96 10/31/17 08:56 10/31/17 08:56 10/31/17 08:56 10/31/17 08:56 10/31/17 08:56 Intake & Output 10/30/17 10/31/17 11/01/17 06:59 06:59 06:59 Intake Total 1217 2209 Balance 1217 2209 Weight 124.9 kg 122 kg General appearance: PRESENT: no acute distress, well-developed, well-nourished Head exam: PRESENT: atraumatic, normocephalic Eye exam: PRESENT: conjunctiva pink, EOMI, PERRLA. ABSENT: scleral icterus Ear exam: PRESENT: normal external ear exam Mouth exam: PRESENT: moist, tongue midline Neck exam: ABSENT: carotid bruit, JVD, lymphadenopathy, thyromegaly Respiratory exam: PRESENT: clear to auscultation rachell. ABSENT: rales, rhonchi, wheezes Cardiovascular exam: PRESENT: RRR. ABSENT: diastolic murmur, rubs, systolic murmur Pulses: PRESENT: normal dorsalis pedis pul Vascular exam: PRESENT: normal capillary refill GI/Abdominal exam: PRESENT: normal bowel sounds, soft. ABSENT: distended, guarding, mass, organolmegaly, rebound, tenderness Rectal exam: PRESENT: deferred Extremities exam: PRESENT: full ROM. ABSENT: calf tenderness, clubbing, pedal edema Neurological exam: PRESENT: alert, awake, oriented to person, oriented to place , oriented to time, oriented to situation, CN II-XII grossly intact. ABSENT: motor sensory deficit Psychiatric exam: PRESENT: appropriate affect, normal mood. ABSENT: homicidal ideation, suicidal ideation Skin exam: PRESENT: dry, intact, warm. ABSENT: cyanosis, rash Results Laboratory Results: 10/29/17 02:59 10/31/17 04:00 10/31/17 10/31/17 04:00 04:00 Sodium 138.0 Potassium 4.5 Chloride 99 Carbon Dioxide 28 Anion Gap 11 BUN 27 H Creatinine 1.14 Est GFR ( Amer) > 60 Est GFR (Non-Af Amer) > 60 Glucose 131 H Calcium 9.2 Magnesium 2.1 Total Bilirubin 0.5 AST 29 ALT 42 Alkaline Phosphatase 92 Total Protein 6.7 Albumin 4.1 TSH 24.40 H 10/28/17 10/29/17 10/29/17 20:53 02:59 02:59 Creatine Kinase 80 CK-MB (CK-2) 2.29 2.35 Troponin I 0.050 0.043 10/29/17 10/29/17 10/29/17 09:10 09:10 15:35 Creatine Kinase 80 121 CK-MB (CK-2) 3.02 Troponin I 0.035 10/29/17 10/29/17 15:35 21:00 Creatine Kinase CK-MB (CK-2) 3.53 3.23 Troponin I 0.031 0.034 Impressions: Chest X-Ray 10/28/17 19:16 IMPRESSION: NO ACUTE RADIOGRAPHIC FINDING IN THE CHEST.
--- NOTE | 2017-10-31 16:33 | PROGRESS NOTE E ---
Progress Note NAME: SONIYA LUEVANO : 1960 AGE: 57Y DATE: 10/31/2017 ROOM: 305 SUBJECTIVE: The patient denies any chest pain or discomfort. There is no PND or orthopnea. There is no arrhythmia. There are no anginal symptoms. The patient denies any leg edema. There is no PND, orthopnea or palpitations. There is no near syncope. The patient remains in sinus rhythm. OBJECTIVE: GENERAL: The patient is morbidly obese, in no acute distress. VITAL SIGNS: He is afebrile with a temperature of 98.2 degrees Fahrenheit. Pulse is 72 beats per minute. Blood pressure 166/88, respirations are 18 per minute, 02 saturations are 96% on room air. HEENT: Head is normocephalic, atraumatic. Eyes: Pupils are equal, round, regular and reactive to light and accommodation. Extraocular movements are normal. There is no conjunctival pallor. There is no scleral icterus. ENT is negative. NECK: Supple. There is no JVD. Carotids are equal. There is no bruit. There is no lymphadenopathy. There is no goiter. There is no neck stiffness. LUNGS: Clear to auscultation and percussion without any rhonchi, rales or wheezing. HEART: S1 and S2 are heard. There is no S3 gallop. There is no S4 gallop. There is a systolic murmur in the left sternal border and apex. There is no rub. ABDOMEN: Soft, obese, nontender. There is no hepatosplenomegaly. Bowel sounds are well heard. There are no tender areas or masses. There is no hepatosplenomegaly. There is no rebound, guarding or rigidity. EXTREMITIES: Femorals are diminished. The femorals are deep. There are no femoral bruits. Leg pulses are diminished. There is no pedal edema. There is no DVT or cellulitis. There is no calf tenderness. There is no cyanosis or clubbing. CENTRAL NERVOUS SYSTEM: The patient is conscious, awake, alert x3 with no focal deficits. PSYCHIATRIC: The patient's judgment and insight are intact. His affect is normal. DIAGNOSTIC DATA: The patient's sodium is 138, potassium 4.5, chloride 99, CO2 28. The patient's BUN is 27, creatinine 1.14, GFR is greater than 60, glucose is 131. The patient's calcium is 9.2, magnesium is 2.1. Liver function tests are normal. His TSH has come down 34.4, his albumin is 4.1, total protein 6.7. His glucose is 131, his prothrombin time is 12, his INR is 0.91, PTT is 41.8. IMPRESSION: 1. ABNORMAL CARDIOVASCULAR FUNCTION STRESS TEST; THAT IS, ABNORMAL STRESS TEST IV LEXISCAN CARDIOLITE WITH THE STRESS TEST SHOWING MODERATE REVERSIBLE ISCHEMIA IN A SETTING OF SCAR INVOLVING THE INFERIOR WALL. I have spoken to [facility], [facility] osteologist, Dr. Banks, who has accepted the patient for cardiac catheterization under Dr. Coreas. Continue the patient's current medications including aspirin, beta-blockers and nitrates. Note that the patient's Isuprel has been increased to 40 mg p.o. q.12 h. and his metoprolol *------* 50 mg p.o. q.12 h. We will see since the *------* has recently been increased. We will see prior to adding any more medications. 2. EXERTIONAL CHEST PRESSURE WITH SHORTNESS OF BREATH AND DIAPHORESIS, WITH INCREASE IN EXERTION AND AN ABNORMAL STRESS TEST. Will strongly recommend cardiac catheterization, which has been scheduled after discussion with the [facility] microphone boom operator. 3. MALIGNANT HYPERTENSION. Blood pressure much better but still not optimal. 4. ABNORMAL EKG. Remains stable. T inversion in I and aVL. 5. HYPOTHYROIDISM. The TSH is improved but still not back to desired levels. 7. TOBACCO DEPENDENCY. The patient at present is on Nicoderm patch. 8. OBSTRUCTIVE SLEEP APNEA. Continue CPAP. 9. MORBID OBESITY. Once the patient's coronary anatomy is known, then subsequently will schedule the patient for exercise to lose weight and also diet. 10. NONCOMPLIANCE. This has been discussed at length with the patient. Note: Thirty minutes spent on this patient with more than 50% of the time spent on direct patient care. His medications have been reviewed and the case discussed with other caregiving providers on the case. Medical decision-making is of high complexity in view of the need for cardiac catheterization on this patient. I have discussed the procedure, the benefits, risks and complications of cardiac catheterization and also the complications and risks and benefits of conscious sedation with the patient. Will sign off, and the patient will be followed up by me in the office. Thanking you. DICTATING PHYSICIAN: DANI NICOLE M.D. [id number] PHY#: [id number] ID: [id number] JOB#: [id number] ACCT: [id number] cc: >
[2017-10-31] MEDS: ATORVASTATIN CALCIUM 40 MG TABLET PO SCH (21:17)
[2017-11-01] MEDS: MORPHINE SULFATE 10 MG/ML INJ IV PRN ×2 (01:01→11:44)
[2017-11-01] MEDS: LEVOTHYROXINE SODIUM 0.1 MG TABLET PO SCH (05:46)
[2017-11-01 05:54] LABS: HEMATOCRIT 47.9 % (37.9-51.0); HEMOGLOBIN 16.6 g/dL (13.5-17.0); HGB HCT DIFFERENCE 1.9; MEAN CORPUSCULAR HEMOGLOBIN 31.3 pg (27.0-33.4); MEAN CORPUSCULAR HGB CONC 34.6 g/dL (32.0-36.0); MEAN CORPUSCULAR VOLUME 91 fl (80-97); RED BLOOD COUNT 5.29 10^6/uL (4.35-5.55); RED CELL DISTRIBUTION WIDTH 14.1 % (11.5-14.0); WHITE BLOOD COUNT 9.5 10^3/uL (4.0-10.5)
[2017-11-01 08:34] VITALS: BP 151/77
[2017-11-01] MEDS: ENOXAPARIN SODIUM INJ 150 MG/1 ML DISP.SYRIN SUBCUT SCH (10:00)
[2017-11-01] MEDS: HYDROCHLOROTHIAZIDE 25 MG TABLET PO SCH (10:00)
[2017-11-01] MEDS: LISINOPRIL 10 MG TABLET PO SCH (10:00)
[2017-11-01] MEDS: ASPIRIN 325 MG TABLET, ENT COATED PO SCH (10:00)
[2017-11-01] MEDS: METOPROLOL SUCCINATE 25 MG TAB.SR.24H PO SCH (10:00)
[2017-11-01] MEDS: NITROGLYCERIN 10 MG (0.4 MG/HR) PATCH.TD24 TD SCH (10:00)
[2017-11-01] MEDS: DOCUSATE SODIUM 100 MG CAPSULE PO SCH (10:00)
== END 2017-11-01 11:53 | disposition short-term general hospital (02) ==
LOC: ER 18:44 → EH 20:26 → 3N 21:53
PROVIDERS: ADMIT Family Medicine; ATTEND Family Medicine
PROC: HZ31ZZZ Individual Counseling for Substance Abuse Treatment, Behavioral (ICD-10-PCS; principal; 2017-10-28)
DX: R07.89 Other chest pain (principal); R94.39 Abnormal result of other cardiovascular function study; E66.01 Morbid (severe) obesity due to excess calories; I16.0 Hypertensive urgency; E11.65 Type 2 diabetes mellitus with hyperglycemia; G47.33 Obstructive sleep apnea (adult) (pediatric); E78.2 Mixed hyperlipidemia; E05.00 Thyrotoxicosis with diffuse goiter without thyrotoxic crisis or storm; F11.10 Opioid abuse, uncomplicated; F12.10 Cannabis abuse, uncomplicated; F17.210 Nicotine dependence, cigarettes, uncomplicated; I44.0 Atrioventricular block, first degree; R05 Cough; E11.638 Type 2 diabetes mellitus with other oral complications; E03.9 Hypothyroidism, unspecified; R94.31 Abnormal electrocardiogram [ECG] [EKG]; R06.02 Shortness of breath; Z68.41 Body mass index [BMI] 40.0-44.9, adult; Z91.14 Patient's other noncompliance with medication regimen; Z59.9 Problem related to housing and economic circumstances, unspecified; Z66 Do not resuscitate
CPT/HCPCS: 93005 ×3; 99285; 36415 ×4; 84439; 82553 ×2; 82962 ×4; 82550; 83735; 84443 ×2; 85025; 85027 ×2; 85610; 85730; 80048; 80053; 81001; 84484 ×2; 80307; 84481; 83036; 80061; 93017; 71010; 78452; 93010 ×2; 99406; A9500; J2785; J3490 ×11; J1940; J1815; J2270 ×5; J2405; Q9969

== ENCOUNTER 2018-02-10 14:51 | Emergency (ER) | payer SELFPAY ==
[2018-02-10] MEDS ORDERED: ASPIRIN 81 MG TABLET, CHEWABLE PO ONE (15:45)
--- NOTE | 2018-02-10 15:46 | ER Document Report ---
ED Medical Screen (RME) - General Chief Complaint: Chest Pain Stated Complaint: CHEST PAIN/LEFT ARM NUMB Time Seen by Provider: 02/10/18 15:32 Notes: 57-year-old male to emergency department chief complaint of chest pain. Recently diagnosed with [place]. Not distensible. Has been taking aspirin but nothing else. No nitro at home. States he has been having chest pain all day that radiates down his left arm. No nausea, vomiting or diarrhea. No fever. No shortness of breath. I have greeted and performed a rapid initial assessment of this patient. A comprehensive ED assessment and evaluation of the patient, analysis of test results and completion of the medical decision making process will be conducted by additional ED providers. TRAVEL OUTSIDE OF THE [place] IN LAST 30 DAYS: No - Related Data Allergies/Adverse Reactions: No Known Drug Allergies Allergy (Verified 02/10/18 14:53) Past Medical History - Social History Frequency of alcohol use: None Drug Abuse: None - Past Medical History Cardiac Medical History: Reports: Hx Hypercholesterolemia, Hx Hypertension - Untreated Endocrine Medical History: Reports: Hx Diabetes Mellitus Type 2, Hx Hyperthyroidism, Hx Hypothyroidism Renal/ Medical History: Denies: Hx Peritoneal Dialysis Psychiatric Medical History: Reports: Hx Depression Past Surgical History: Reports: Hx Orthopedic Surgery - R knee surgery - Immunizations Immunizations up to date: Yes Hx Diphtheria, Pertussis, Tetanus Vaccination: Yes History of Influenza Vaccine for 08/2017 - 01/2018 Season: Refused Physical Exam - Vital signs Vitals: Temp Pulse Resp BP Pulse Ox 98.8 F 80 22 H 179/96 H 96 02/10/18 15:00 02/10/18 15:00 02/10/18 15:00 02/10/18 15:00 02/10/18 15:00 - Notes Notes: General: Alert no acute distress HEENT: Atraumatic, normocephalic, pupils equal round react to light and accommodation, extraocular muscles are intact, nose is non tender, posterior pharynx is without erythema or exudate. Tongue is unremarkable Heart: Heart with regular rate and rhythm, no murmurs, no rubs, no clicks Lungs: Lungs clear to auscultation bilaterally, no wheezes, rhonchi, rales Abdomen: Abdomen is soft, nontender, nondistended, normal bowel sounds Neuro: cranial nerves II through XII intact, reflexes intact, sensation intact, Extremities:Moving all extremities. Equal strength bilaterally in the upper lower extremities. No significant deformity Skin: No lesions. Skin intact Psych: Normal insight. Normal judgment - General General appearance: Appears well Course - Vital Signs Vital signs: Temp Pulse Resp BP Pulse Ox 98.8 F 80 22 H 179/96 H 96 02/10/18 15:00 02/10/18 15:00 02/10/18 15:00 02/10/18 15:00 02/10/18 15:00
--- NOTE | 2018-02-10 16:14 | RADIOLOGY REPORT (SQ) ---
EXAM DESCRIPTION: CHEST SINGLE VIEW COMPLETED DATE/TIME: 02/10/2018 3:59 pm REASON FOR STUDY: chest pain COMPARISON: None. EXAM PARAMETERS: NUMBER OF VIEWS: One view. TECHNIQUE: Single frontal radiographic view of the chest acquired. RADIATION DOSE: NA LIMITATIONS: None. FINDINGS: LUNGS AND PLEURA: No opacities, masses or pneumothorax. No pleural effusion. MEDIASTINUM AND HILAR STRUCTURES: No masses. Contour normal. HEART AND VASCULAR STRUCTURES: Heart normal in size. Normal vasculature. BONES: No acute findings. HARDWARE: None in the chest. OTHER: No other significant finding. IMPRESSION: NO ACUTE RADIOGRAPHIC FINDING IN THE CHEST. TECHNICAL DOCUMENTATION: JOB ID: [id number] [email or web address]- All Rights Reserved Reading location - IP/workstation name: [email or web address]
[2018-02-10 16:45] LABS: ABSOLUTE EOSINOPHILS # (AUTO) 0.1 10^3/uL (0.0-0.6); ABSOLUTE LYMPHOCYTES (AUTO) 2.3 10^3/uL (0.5-4.7); ABSOLUTE MONOCYTES (AUTO) 0.8 10^3/uL (0.1-1.4); ABSOLUTE NEUT (AUTO) 5.9 10^3/uL (1.7-8.2); BASOPHILS % (AUTO) 0.4 % (0-2); EOSINOPHILS % (AUTO) 1.3 % (0-6); HEMATOCRIT 47.5 % (37.9-51.0); HEMOGLOBIN 15.8 g/dL (13.5-17.0); LYMPHOCYTES % (AUTO) 25.1 % (13-45); MEAN CORPUSCULAR HEMOGLOBIN 30.6 pg (27.0-33.4); MEAN CORPUSCULAR HGB CONC 33.3 g/dL (32.0-36.0); MEAN CORPUSCULAR VOLUME 92 fl (80-97); MONOCYTES % (AUTO) 8.6 % (3-13); PLATELET COUNT 206 10^3/uL (150-450); RED BLOOD COUNT 5.16 10^6/uL (4.35-5.55); RED CELL DISTRIBUTION WIDTH 14.2 % (11.5-14.0); SEGMENTED NEUTROPHILS % (AUTO) 64.6 % (42-78); TOTAL CELLS COUNTED % (AUTO) 100 %; WHITE BLOOD COUNT 9.2 10^3/uL (4.0-10.5)
[2018-02-10 17:08] LABS: ALANINE AMINOTRANSFERASE 43 U/L (21-72); ALBUMIN 4.4 g/dL (3.5-5.0); ALKALINE PHOSPHATASE 73 U/L (38-126); ANION GAP 9 (5-19); ASPARTATE AMINO TRANSFERASE 41 U/L (17-59); BILIRUBIN,DIRECT 0.3 mg/dL (0.0-0.4); BILIRUBIN,TOTAL 0.5 mg/dL (0.2-1.3); BLOOD UREA NITROGEN 17 mg/dL (7-20); CALCIUM 10.1 mg/dL (8.4-10.2); CARBON DIOXIDE 28 mmol/L (22-30); CHLORIDE 104 mmol/L (98-107); CREATINE KINASE 279 U/L (55-170); GLUCOSE 103 mg/dL (75-110); TOTAL PROTEIN 7.4 g/dL (6.3-8.2)
[2018-02-10 17:19] LABS: CREATINE KINASE MB 5.01 ng/mL (<4.55); TROPONIN I 0.024 ng/mL
--- NOTE | 2018-02-10 18:13 | EKG REPORT ---
SEVERITY:- ABNORMAL ECG - SINUS RHYTHM FIRST DEGREE AV BLOCK LEFT ATRIAL ABNORMALITY BORDERLINE LEFT AXIS DEVIATION ABNORMAL T, CONSIDER ISCHEMIA, LATERAL LEADS : Confirmed by: Akhil Asher MD 10-Feb-2018 18:12:20
[2018-02-10] MEDS ORDERED: HYDROCODONE/ACETAMINOPHEN 5-325 MG TABLET PO ONE (18:56)
--- NOTE | 2018-02-10 18:59 | ER Document Report ---
ED Cardiac - General Chief Complaint: Chest Pain Stated Complaint: CHEST PAIN/LEFT ARM NUMB Time Seen by Provider: 02/10/18 15:32 Mode of Arrival: Ambulatory Information source: Patient Notes: History of complain-57 years old male with a history of an ME 3 months ago according to him. Presents today with an episode of precordial chest pain around 9 AM radiating to left arm with left arm numbness. He says he had a cardiac cath 3 months ago and reported as normal. And since then he has lost about 70 pounds. Stop smoking. The pain is still present but not as severe as it before. Denies any other associated symptoms such as palpitation diaphoresis or difficulty in breathing. 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 Denies any fever chills or other constitutional symptoms. REVIEW OF SYSTEMS: CONSTITUTIONAL : Denies fever, chills, or sweats. Denies recent illness. EENT: Denies eye, ear, throat, or mouth pain or symptoms. Denies nasal or sinus congestion or discharge. Denies throat, tongue, or mouth swelling or difficulty swallowing. CARDIOVASCULAR: . Denies palpitations or racing or irregular heart beat. Denies ankle edema. RESPIRATORY: Denies cough, cold, or chest congestion. Denies shortness of breath, difficulty breathing, or wheezing. GASTROINTESTINAL: Denies abdominal pain or distention. Denies nausea, vomiting , or diarrhea. Denies blood in vomitus, stools, or per rectum. Denies black, tarry stools. Denies constipation. GENITOURINARY: Denies difficulty urinating, painful urination, burning, frequency, blood in urine, or discharge. MUSCULOSKELETAL: Denies back or neck pain or stiffness. Denies joint pain or swelling. SKIN: Denies rash, lesions or sores. HEMATOLOGIC : Denies easy bruising or bleeding. LYMPHATIC: Denies swollen, enlarged glands. NEUROLOGICAL: Denies confusion or altered mental status. Denies passing out or loss of consciousness. Denies dizziness or lightheadedness. Denies headache. Denies weakness or paralysis or loss of use of either side. Denies problems with gait or speech. Denies sensory loss, numbness, or tingling. Denies seizures. PSYCHIATRIC: Denies anxiety or stress. Denies depression, suicidal ideation, or homicidal ideation. ALL OTHER SYSTEMS REVIEWED AND NEGATIVE. Dictation was performed using [employer] voice recognition software PHYSICAL EXAMINATION: GENERAL: Well-appearing, well-nourished and in no acute distress. HEAD: Atraumatic, normocephalic. EYES: Pupils equal round and reactive to light, extraocular movements intact, sclera anicteric, conjunctiva are normal. ENT: Nares patent, oropharynx clear without exudates. Moist mucous membranes. NECK: Normal range of motion, supple without lymphadenopathy LUNGS: Breath sounds clear to auscultation bilaterally and equal. No wheezes rales or rhonchi. HEART: Regular rate and rhythm without murmurs Chest wall-chest wall tenderness noted over the left side of the chest wall particularly on palpation even with gentle palpation. ABDOMEN: Soft, nontender, nondistended abdomen. No guarding, no rebound. No masses appreciated. Musculoskeletal: Normal range of motion, no pitting or edema. No cyanosis. NEUROLOGICAL: Cranial nerves grossly intact. Normal speech, normal gait. Normal sensory, motor exams PSYCH: Normal mood, normal affect. SKIN: Warm, Dry, normal turgor, no rashes or lesions noted. History of complain TRAVEL OUTSIDE OF THE [place] IN LAST 30 DAYS: No - Related Data Allergies/Adverse Reactions: No Known Drug Allergies Allergy (Verified 02/10/18 14:53) Past Medical History - Social History Smoking Status: Former Smoker Frequency of alcohol use: None Drug Abuse: None Family History: Reviewed & Not Pertinent Patient has suicidal ideation: No Patient has homicidal ideation: No - Past Medical History Cardiac Medical History: Reports: Hx Hypercholesterolemia, Hx Hypertension - Untreated Endocrine Medical History: Reports: Hx Diabetes Mellitus Type 2, Hx Hyperthyroidism, Hx Hypothyroidism Renal/ Medical History: Denies: Hx Peritoneal Dialysis Psychiatric Medical History: Reports: Hx Depression Past Surgical History: Reports: Hx Orthopedic Surgery - R knee surgery - Immunizations Immunizations up to date: Yes Hx Diphtheria, Pertussis, Tetanus Vaccination: Yes Review of Systems - Review of Systems Notes: As per history of complain Physical Exam - Vital signs Vitals: Temp Pulse Resp BP Pulse Ox 98.8 F 80 22 H 179/96 H 96 02/10/18 15:00 02/10/18 15:00 02/10/18 15:00 02/10/18 15:00 02/10/18 15:00 Course - Vital Signs Vital signs: Temp Pulse Resp BP Pulse Ox 98.8 F 80 31 H 171/96 H 97 02/10/18 15:00 02/10/18 15:00 02/10/18 21:01 02/10/18 21:01 02/10/18 21:01 - Laboratory Result Diagrams: 02/10/18 19:55 02/10/18 19:55 Laboratory results interpreted by me: 02/10/18 02/10/18 02/10/18 16:18 16:18 16:18 RDW 14.2 H Creatine Kinase 279 H CK-MB (CK-2) 5.01 H 02/10/18 19:55 RDW 14.4 H Creatine Kinase CK-MB (CK-2) - EKG Interpretation by Ar EKG shows normal: Sinus rhythm Rate: Normal Rhythm: NSR - Normal sinus rhythm at the rate of 79 bpm left axis deviation, otherwise no acute ST elevation ST depression T-wave inversion noted. Discharge - Discharge Clinical Impression: Chest pain, rule out acute myocardial infarction Disposition: ELOPED
[2018-02-10 20:15] LABS: ABSOLUTE BASOPHILS # (AUTO) 0.1 10^3/uL (0.0-0.2); ABSOLUTE EOSINOPHILS # (AUTO) 0.2 10^3/uL (0.0-0.6); ABSOLUTE LYMPHOCYTES (AUTO) 2.4 10^3/uL (0.5-4.7); ABSOLUTE MONOCYTES (AUTO) 0.8 10^3/uL (0.1-1.4); BASOPHILS % (AUTO) 0.9 % (0-2); HEMATOCRIT 45.6 % (37.9-51.0); HEMOGLOBIN 15.1 g/dL (13.5-17.0); LYMPHOCYTES % (AUTO) 28.8 % (13-45); MEAN CORPUSCULAR HEMOGLOBIN 30.6 pg (27.0-33.4); MEAN CORPUSCULAR VOLUME 93 fl (80-97); MONOCYTES % (AUTO) 9.4 % (3-13); PLATELET COUNT 200 10^3/uL (150-450); RED BLOOD COUNT 4.93 10^6/uL (4.35-5.55); RED CELL DISTRIBUTION WIDTH 14.4 % (11.5-14.0); SEGMENTED NEUTROPHILS % (AUTO) 58.9 % (42-78); TOTAL CELLS COUNTED % (AUTO) 100 %; WHITE BLOOD COUNT 8.5 10^3/uL (4.0-10.5)
[2018-02-10 20:30] LABS: ALANINE AMINOTRANSFERASE 41 U/L (21-72); ALKALINE PHOSPHATASE 70 U/L (38-126); ANION GAP 10 (5-19); ASPARTATE AMINO TRANSFERASE 35 U/L (17-59); BILIRUBIN,DIRECT 0.3 mg/dL (0.0-0.4); BILIRUBIN,TOTAL 0.5 mg/dL (0.2-1.3); BLOOD UREA NITROGEN 17 mg/dL (7-20); CALCIUM 9.4 mg/dL (8.4-10.2); CARBON DIOXIDE 23 mmol/L (22-30); CHLORIDE 106 mmol/L (98-107); GLUCOSE 84 mg/dL (75-110); POTASSIUM 3.8 mmol/L (3.6-5.0); SODIUM 139.3 mmol/L (137-145); TOTAL PROTEIN 6.5 g/dL (6.3-8.2)
[2018-02-10 21:47] VITALS: BP 171/96
== END 2018-02-10 21:45 | disposition left against medical advice (07) ==
LOC: ER 14:51
DX: R07.2 Precordial pain (principal); R20.0 Anesthesia of skin; I10 Essential (primary) hypertension; I25.2 Old myocardial infarction; E11.9 Type 2 diabetes mellitus without complications; Z87.891 Personal history of nicotine dependence
CPT/HCPCS: 36415; 71045; 80053; 82550; 82553; 84484; 85025; 93005; 93010; 99281

== ENCOUNTER 2019-06-06 00:52 | Inpatient (IN) | payer SELFPAY ==
[2019-06-06] MEDS ORDERED: ASPIRIN 325 MG TABLET PO ONE (01:30)
[2019-06-06] MEDS ORDERED: IPRATROPIUM/ALBUTEROL 0.5-2.5 MG/3 ML AMPUL NEB ONE ×2 (01:51→02:53)
--- NOTE | 2019-06-06 01:52 | ER Document Report ---
ED General - General Chief Complaint: Chest Pain Stated Complaint: CHEST PAIN Time Seen by Provider: 06/06/19 01:41 Notes: Patient is a 58-year-old male with history of CAD that presents to the emergency department for chief complaint of chest pain. The patient reports that the pain started around 5:00 today prior to going into work, he states that the pain got worse while he was there. The currently rate the pain as 4 out of 10, and desc ribed as heaviness on his chest. They have had associated shortness of breath, and mild nausea. Denies any diaphoresis. Their risk factors for heart disease include history of CAD, states he had cardiac catheterization a few years ago, without stenting, he had a positive stress test at that time. He is currently not taking any medications for blood pressure, cholesterol, and has not been taking aspirin on a daily basis. He states he is a smoker and quit 3 weeks ago. He states the pain today got worse when he was at work and exerting himself, and is still present at rest currently. Past Medical History: CAD Past Surgical History: Left heart catheterization Social History: Former smoker, quit only 3 weeks ago, denies daily alcohol use, denies illicit drug use. Family History: Reviewed and noncontributory for presenting illness Allergies: Reviewed, see documented allergy list. REVIEW OF SYSTEMS: Other than noted above, the 12 point review of systems was reviewed with the patient and were negative, all pertinent findings are included in the HPI. PHYSICAL EXAMINATION: Vital signs reviewed, nursing noted reviewed. GENERAL: Patient appears uncomfortable on exam, somewhat increased work of breathing HEAD: Atraumatic, normocephalic. EYES: Eyes appear normal, extraocular movements intact, sclera anicteric, conjunctiva are normal. ENT: nares patent, oropharynx clear without exudates. Moist mucous membranes. NECK: Normal range of motion, supple without lymphadenopathy LUNGS: Diffuse wheezing throughout all lung mendoza, mild increased work of breathing. HEART: Regular rate and rhythm without murmurs ABDOMEN: Soft, obese, nontender, normoactive bowel sounds. No rebound, guarding, or rigidity. No masses appreciated. EXTREMITIES: Nontender, good range of motion, no pitting or edema. NEUROLOGICAL: No focal neurological deficits. Moves all extremities spontane ously Motor and sensory grossly intact on exam. PSYCH: Normal mood, normal affect. SKIN: Warm, Dry, normal turgor, no rashes or lesions noted on exposed skin TRAVEL OUTSIDE OF THE [place] IN LAST 30 DAYS: No - Related Data Allergies/Adverse Reactions: No Known Drug Allergies Allergy (Verified 02/10/18 14:53) Past Medical History - Social History Smoking Status: Former Smoker Family History: Reviewed & Not Pertinent - Past Medical History Cardiac Medical History: Reports: Hx Heart Attack, Hx Hypercholesterolemia, Hx Hypertension - Untreated Endocrine Medical History: Reports: Hx Diabetes Mellitus Type 2, Hx Hyperthyroidism, Hx Hypothyroidism Renal/ Medical History: Denies: Hx Peritoneal Dialysis Psychiatric Medical History: Reports: Hx Depression Past Surgical History: Reports: Hx Orthopedic Surgery - R knee surgery - Immunizations Immunizations up to date: Yes Hx Diphtheria, Pertussis, Tetanus Vaccination: Yes Physical Exam - Vital signs Vitals: Temp Pulse Resp BP Pulse Ox 98.5 F 99 30 H 189/104 H 94 06/06/19 01:01 06/06/19 01:01 06/06/19 01:01 06/06/19 01:01 06/06/19 01:01 Course - Re-evaluation Re-evalutation: Patient seen and examined vital signs reviewed. Laboratory data and imaging were ordered as appropriate for the patient's presenting symptoms and complaint, with consideration of any critical or life threatening conditions that may be associated with their obtained history and exam as noted above. Patient was treated with nitroglycerin tablets, aspirin, and morphine Results were reviewed when available and demonstrated negative chest x-ray, EKG did not demonstrate an acute ischemic pattern, his troponin was slightly elevated 0.034, based on prior troponins, this is around his baseline, blood work was otherwise unremarkable The patient was re-evaluated and was improving, chest pain was resolving, and if not nearly resolved, blood pressure was improved, after treatments of DuoNeb breathing treatments, his wheezing was resolved as well. Overall he was feeling better. Evaluation was most consistent with chest pain, exacerbation of suspected underlying COPD, bronchospasm, patient is high risk of chest pain, given prior history of positive Lexiscan stress testing, and heart catheter demonstrating disease, I feel the patient is to be hospitalized for serial troponin testing, and possible repeat stress test. Results were discussed with the patient at this point after careful consideration I feel that that patient should be admitted to the hospital. This was discussed with the patient that it is in the best interest for their care to be admitted for further evaluation and management. Patient agreed with this plan of care. A call was placed to the admitting physician, Dr. Miller who graciously accepted the patient onto their service. *Note is created using voice recognition software and may contain spelling, sy ntax or grammatical errors. Laboratory 06/06/19 06/06/19 06/06/19 01:55 01:55 01:55 WBC 9.3 RBC 5.16 Hgb 15.7 Hct 46.6 MCV 90 MCH 30.4 MCHC 33.6 RDW 14.4 H Plt Count 175 Seg Neutrophils % 78.7 H Lymphocytes % 8.9 L Monocytes % 10.0 Eosinophils % 1.8 Basophils % 0.6 Absolute Neutrophils 7.3 Absolute Lymphocytes 0.8 Absolute Monocytes 0.9 Absolute Eosinophils 0.2 Absolute Basophils 0.1 PT INR APTT Sodium 139.7 Potassium 4.2 Chloride 104 Carbon Dioxide 27 Anion Gap 9 BUN 15 Creatinine 1.17 Est GFR ( Amer) > 60 Est GFR (Non-Af Amer) > 60 Glucose 119 H Calcium 9.3 Magnesium 2.2 Total Bilirubin 0.8 Direct Bilirubin 0.3 Neonat Total Bilirubin Not Reportable Neonat Direct Bilirubin Not Reportable Neonat Indirect Bili Not Reportable AST 23 ALT 31 Alkaline Phosphatase 79 Troponin I 0.034 NT-Pro-B Natriuret Pep 1880 H Total Protein 6.9 Albumin 4.1 06/06/19 01:55 WBC RBC Hgb Hct MCV MCH MCHC RDW Plt Count Seg Neutrophils % Lymphocytes % Monocytes % Eosinophils % Basophils % Absolute Neutrophils Absolute Lymphocytes Absolute Monocytes Absolute Eosinophils Absolute Basophils PT 13.1 INR 0.99 APTT 29.2 Sodium Potassium Chloride Carbon Dioxide Anion Gap BUN Creatinine Est GFR ( Amer) Est GFR (Non-Af Amer) Glucose Calcium Magnesium Total Bilirubin Direct Bilirubin Neonat Total Bilirubin Neonat Direct Bilirubin Neonat Indirect Bili AST ALT Alkaline Phosphatase Troponin I NT-Pro-B Natriuret Pep Total Protein Albumin - Vital Signs Vital signs: Temp Pulse Resp BP Pulse Ox 98.6 F 99 22 H 133/81 H 94 06/06/19 04:44 06/06/19 01:01 06/06/19 04:46 06/06/19 04:46 06/06/19 04:46 - Laboratory Result Diagrams: 06/06/19 01:55 06/06/19 01:55 Laboratory results interpreted by me: 06/06/19 06/06/19 06/06/19 01:55 01:55 01:55 RDW 14.4 H Seg Neutrophils % 78.7 H Lymphocytes % 8.9 L Glucose 119 H NT-Pro-B Natriuret Pep 1880 H TSH 06/06/19 01:55 RDW Seg Neutrophils % Lymphocytes % Glucose NT-Pro-B Natriuret Pep TSH 15.00 H - EKG Interpretation by Me Additional EKG results interpreted by me: EKG demonstrates sinus rhythm with first-degree AV block left axis deviation, there is T wave flattening in lead I, and inversion in lead aVL, no ST elevation. Discharge - Discharge Clinical Impression: Hypertensive urgency Chest pain Qualifiers: Chest pain type: unspecified Qualified Code(s): R07.9 - Chest pain, unspecified Condition: Stable Disposition: ADMITTED INPATIENT Admitting Provider: Paul (Hospitalist) Unit Admitted: [facility]
[2019-06-06] MEDS: NITROGLYCERIN 0.4 MG/TAB 25 TAB/BOTTLE SL PRN ×2 (02:06→02:12)
[2019-06-06 02:11] LABS: ABSOLUTE BASOPHILS # (AUTO) 0.1 10^3/uL (0.0-0.2); ABSOLUTE EOSINOPHILS # (AUTO) 0.2 10^3/uL (0.0-0.6); ABSOLUTE LYMPHOCYTES (AUTO) 0.8 10^3/uL (0.5-4.7); ABSOLUTE MONOCYTES (AUTO) 0.9 10^3/uL (0.1-1.4); ABSOLUTE NEUT (AUTO) 7.3 10^3/uL (1.7-8.2); BASOPHILS % (AUTO) 0.6 % (0-2); EOSINOPHILS % (AUTO) 1.8 % (0-6); HEMATOCRIT 46.6 % (37.9-51.0); HEMOGLOBIN 15.7 g/dL (13.5-17.0); LYMPHOCYTES % (AUTO) 8.9 % (13-45); MEAN CORPUSCULAR HEMOGLOBIN 30.4 pg (27.0-33.4); MEAN CORPUSCULAR HGB CONC 33.6 g/dL (32.0-36.0); MEAN CORPUSCULAR VOLUME 90 fl (80-97); PLATELET COUNT 175 10^3/uL (150-450); RED BLOOD COUNT 5.16 10^6/uL (4.35-5.55); RED CELL DISTRIBUTION WIDTH 14.4 % (11.5-14.0); SEGMENTED NEUTROPHILS % (AUTO) 78.7 % (42-78); TOTAL CELLS COUNTED % (AUTO) 100 %; WHITE BLOOD COUNT 9.3 10^3/uL (4.0-10.5)
[2019-06-06 02:15] LABS: INTERNATIONAL RATION (INR) 0.99; PARTIAL THROMBOPLASTIN TIME 29.2 SEC (23.5-35.8); PROTHROMBIN TIME 13.1 SEC (11.4-15.4)
[2019-06-06 02:27] LABS: ALANINE AMINOTRANSFERASE 31 U/L (21-72); ALBUMIN 4.1 g/dL (3.5-5.0); ALKALINE PHOSPHATASE 79 U/L (38-126); ANION GAP 9 (5-19); ASPARTATE AMINO TRANSFERASE 23 U/L (17-59); BILIRUBIN,DIRECT 0.3 mg/dL (0.0-0.4); BILIRUBIN,TOTAL 0.8 mg/dL (0.2-1.3); BLOOD UREA NITROGEN 15 mg/dL (7-20); CALCIUM 9.3 mg/dL (8.4-10.2); CARBON DIOXIDE 27 mmol/L (22-30); CHLORIDE 104 mmol/L (98-107); GLUCOSE 119 mg/dL (75-110); POTASSIUM 4.2 mmol/L (3.6-5.0); TOTAL PROTEIN 6.9 g/dL (6.3-8.2)
[2019-06-06 02:48] LABS: TROPONIN I 0.034 ng/mL
[2019-06-06] MEDS ORDERED: ONDANSETRON HCL INJ/PF 4 MG/2 ML SDV IV ONE (02:52)
[2019-06-06] MEDS ORDERED: MORPHINE SULFATE 10 MG/ML INJ IV ONE (03:10)
[2019-06-06] MEDS ORDERED: METHYLPREDNISOLONE INJ 125 MG/2 ML SDV IV ONE (03:28)
[2019-06-06] MEDS ORDERED: MAGNESIUM HYDROXIDE SUSP 30 ML UDCUP PO PRN (03:33)
[2019-06-06] MEDS ORDERED: MAG HYDROX/AL HYDROX/SIMETH SUSP 30 ML UDCUP PO PRN (03:33)
[2019-06-06] MEDS ORDERED: NITROGLYCERIN 5 MG (0.2 MG/HR) PATCH.TD24 TD ONE (04:30)
[2019-06-06] MEDS ORDERED: LOSARTAN POTASSIUM 50 MG TABLET PO ONE (04:30)
[2019-06-06] MEDS ORDERED: FUROSEMIDE INJ/PF 40 MG/4 ML SDV IV ONE (04:30)
[2019-06-06] MEDS: HEPARIN SOD (PORCINE) 5,000 UNIT/ML 1 ML VIAL SUBCUT SCH ×3 (06:25→21:35)
--- NOTE | 2019-06-06 06:37 | PDOC H&P ---
History of Present Illness Admission Date/PCP: 06/06/19 03:52 Patient complains of: Chest pain shortness of breath History of Present Illness: SONIYA LUEVANO is a 58 year old male with a past medical history of hypertension, obesity, polysubstance abuse, congestive heart failure with an ejection fraction of 35% from stress test October 2017. Patient presents with 24 hours of shortness of breath with exertion, orthopnea prompting him to check his blood pressure finding it to be in the 220 systolic range he comes to the emergency room and is found to have hypertensive urgency requiring nitrates, IV hydralazine, IV Lasix. He is pain-free and referred to the hospitalist for admission. Patient admits to intentional 100 pound weight loss over the last 18 months but has discontinued all medications with exception to homeopathic medications including vinegar. He denies knowledge of intentional stimulant, energy drinks or weight loss supplements. Past Medical History Cardiac Medical History: Reports: Myocardial Infarction, Hyperlipidema, Hypertension - Untreated Endocrine Medical History: Reports: Diabetes Mellitus Type 2, Hyperthyroidism, Hypothyroidism Psychiatric Medical History: Reports: Depression Past Surgical History Past Surgical History: Reports: Orthopedic Surgery - R knee surgery Social History Information Source: Patient, [facility] Records Smoking Status: Former Smoker Frequency of Alcohol Use: None Hx Recreational Drug Use: Yes - SINCE 1970S Drugs: Cocaine, Marijuana, Other Hx Prescription Drug Abuse: No - Advance Directive Resuscitation Status: Full Code Family History Family History: Reviewed & Not Pertinent Parental Family History Reviewed: Yes Children Family History Reviewed: Yes Sibling(s) Family History Reviewed.: Yes Medication/Allergy Home Medications: Aspirin [Ecotrin 325 mg EC Tablet] 325 mg PO DAILY tabec 11/01/17 Atorvastatin Calcium [Lipitor 40 mg Tablet] 40 mg PO QHS tablet 11/01/17 Dextrose [Glutose 40% Gel 15 gm Tube] 30 gm PO PRN PRN tube 11/01/17 Docusate Sodium [Colace 100 mg Capsule] 100 mg PO DAILY capsule 11/01/17 Enoxaparin Sodium [Lovenox Inj 150 mg/1 ml Disp.syrin] 125 mg SUBCUT Q12 disp.syrin 11/01/17 Glucagon,Human Recombinant [Glucagen Inj 1 mg Vial] 1 mg IM PRN PRN vial 11/01/17 Hydrochlorothiazide [Hydrodiuril 25 mg Tablet] 25 mg PO DAILY tablet 11/01/17 Insulin Lispro [Humalog Insulin (Lispro) 100 unit/mL] 0 - 12 unit SUBCUT ACHSP PRN unit 11/01/17 Levothyroxine Sodium [Synthroid 0.1 mg Tablet] 0.1 mg PO Q6AM tablet 11/01/17 Lisinopril [Prinivil 10 mg Tablet] 40 mg PO Q12 tablet 11/01/17 Metoprolol Succinate [Toprol Xl 25 mg Tab.sr] 50 mg PO Q12 tab.sr.24h 11/01/17 Morphine Sulfate [Morphine 10 mg/ml Inj] 1 mg IV Q4HP PRN vial 11/01/17 Nitroglycerin [Nitro-Dur 10 mg (0.4MG/Hr) Transdermal Patch] 1 each TD DAILY patch.td24 11/01/17 Normal Saline [Saline Flush 2.5 ml Monoject Prefil Syrin] 2.5 ml IV Q8 disp.syrin 11/01/17 Allergies/Adverse Reactions: No Known Drug Allergies Allergy (Verified 02/10/18 14:53) Review of Systems Constitutional: PRESENT: as per HPI, fatigue, weakness, weight loss Eyes: ABSENT: visual disturbances Ears: ABSENT: hearing changes Cardiovascular: PRESENT: as per HPI, chest pain, dyspnea on exertion, orthropnea, palpitations. ABSENT: edema Respiratory: PRESENT: as per HPI, cough, dyspnea. ABSENT: hemoptysis Gastrointestinal: ABSENT: abdominal pain, constipation, diarrhea, hematemesis, hematochezia, nausea, vomiting Genitourinary: ABSENT: dysuria, hematuria Musculoskeletal: ABSENT: joint swelling Integumentary: ABSENT: rash, wounds Neurological: ABSENT: abnormal gait, abnormal speech, confusion, dizziness, focal weakness, syncope Psychiatric: ABSENT: anxiety, depression, homidical ideation, suicidal ideation Endocrine: ABSENT: cold intolerance, heat intolerance, polydipsia, polyuria Hematologic/Lymphatic: ABSENT: easy bleeding, easy bruising Physical Exam Vital Signs: Temp Pulse Resp BP Pulse Ox 98.6 F 99 25 H 135/82 H 94 06/06/19 04:44 06/06/19 01:01 06/06/19 05:46 06/06/19 05:46 06/06/19 05:46 Intake & Output 06/04/19 06/05/19 06/06/19 11:59 11:59 11:59 Output Total 450 Balance -450 Weight 115.8 kg General appearance: PRESENT: cooperative, mild distress, obese, well-developed, well-nourished Head exam: PRESENT: atraumatic, normocephalic Eye exam: PRESENT: conjunctiva pink, EOMI, PERRLA. ABSENT: scleral icterus Ear exam: PRESENT: normal external ear exam Mouth exam: PRESENT: moist, tongue midline Neck exam: PRESENT: full ROM, JVD. ABSENT: lymphadenopathy Respiratory exam: PRESENT: accessory muscle use, crackles, decreased breath sounds, rales, tachypnea, wheezes Cardiovascular exam: PRESENT: gallop, RRR, +S2, systolic murmur, tachycardia. ABSENT: diastolic murmur, rubs Pulses: PRESENT: normal dorsalis pedis pul Vascular exam: PRESENT: normal capillary refill GI/Abdominal exam: PRESENT: normal bowel sounds, soft. ABSENT: distended, guarding, mass, organolmegaly, rebound, tenderness Rectal exam: PRESENT: deferred Extremities exam: PRESENT: full ROM. ABSENT: calf tenderness, clubbing, pedal edema Neurological exam: PRESENT: alert, awake, oriented to person, oriented to place, oriented to time, oriented to situation, CN II-XII grossly intact. ABSENT: motor sensory deficit Psychiatric exam: PRESENT: appropriate affect, normal mood. ABSENT: homicidal ideation, suicidal ideation Skin exam: PRESENT: dry, intact, warm. ABSENT: cyanosis, rash Results Laboratory Results: 06/06/19 01:55 06/06/19 01:55 06/06/19 06/06/19 06/06/19 01:55 01:55 01:55 WBC 9.3 RBC 5.16 Hgb 15.7 Hct 46.6 MCV 90 MCH 30.4 MCHC 33.6 RDW 14.4 H Plt Count 175 Seg Neutrophils % 78.7 H Lymphocytes % 8.9 L Monocytes % 10.0 Eosinophils % 1.8 Basophils % 0.6 Absolute Neutrophils 7.3 Absolute Lymphocytes 0.8 Absolute Monocytes 0.9 Absolute Eosinophils 0.2 Absolute Basophils 0.1 Sodium 139.7 Potassium 4.2 Chloride 104 Carbon Dioxide 27 Anion Gap 9 BUN 15 Creatinine 1.17 Est GFR ( Amer) > 60 Est GFR (Non-Af Amer) > 60 Glucose 119 H Calcium 9.3 Magnesium 2.2 Total Bilirubin 0.8 AST 23 ALT 31 Alkaline Phosphatase 79 Total Protein 6.9 Albumin 4.1 TSH 15.00 H 06/06/19 01:55 Troponin I 0.034 NT-Pro-B Natriuret Pep 1880 H Assessment and Plan - Diagnosis (1) Acute exacerbation of congestive heart failure Qualifiers: Heart failure type: combined systolic and diastolic Qualified Code(s): I50.43 - Acute on chronic combined systolic (congestive) and diastolic (congestive) heart failure Is this a current diagnosis for this admission?: Yes Plan: Congestive heart failure care set deployed, follow-up 2D echo and patient education (2) Hypertensive urgency Is this a current diagnosis for this admission?: Yes Plan: IV hydralazine and Lasix - Time Time Spent with patient: 35 or more minutes - Inpatient Certification Medical Necessity: Need Close Monitoring Due to Risk of Patient Decompensation
[2019-06-06 06:57] LABS: CHOLESTEROL 92.84 mg/dL (0-200); TRIGLYCERIDES 72 mg/dL (<150)
[2019-06-06 07:08] LABS: DIRECT LDL 67 mg/dL (<100)
[2019-06-06 07:10] LABS: CREATINE KINASE MB 4.44 ng/mL (<4.55); TROPONIN I 0.036 ng/mL
--- NOTE | 2019-06-06 07:48 | RADIOLOGY REPORT (SQ) ---
CLINICAL HISTORY: SOB,wheezing COMPARISON: February 10, 2018. TECHNIQUE: XR CHEST 2 VIEWS 06/06/2019 1:16 AM CDT FINDINGS: Cardiac silhouette is normal in size. There is questionable right basilar airspace disease. There is no pleural effusion. There is no pneumothorax. There are no acute osseous findings. IMPRESSION: Questionable right basilar pneumonia, likely in the right middle lobe.
[2019-06-06 08:01] LABS: FREE T3 3.45 pg/mL (2.77-5.27); FREE T4 (FREE THYROXINE) 0.82 ng/dL (0.78-2.19)
[2019-06-06] MEDS: POTASSIUM CHLORIDE 10 MEQ CAPSULE.ER PO SCH ×2 (09:44→21:34)
[2019-06-06] MEDS: DOCUSATE SODIUM 100 MG CAPSULE PO SCH (09:44)
[2019-06-06] MEDS: ASPIRIN 81 MG TABLET, ENT COATED PO SCH (09:44)
[2019-06-06] MEDS ORDERED: DEXTROSE 40% GEL 15 GM TUBE PO PRN ×2 (12:47)
[2019-06-06] MEDS ORDERED: DEXTROSE 50%-WATER 25 GM/50 ML DISP.SYRIN IV PRN ×2 (12:47)
[2019-06-06] MEDS ORDERED: GLUCAGON,HUMAN RECOMB 1 MG INJ IM PRN (12:47)
[2019-06-06 13:16] LABS: CREATINE KINASE MB 4.09 ng/mL (<4.55); TROPONIN I 0.023 ng/mL
[2019-06-06 13:26] LABS: URINE AMPHETAMINES SCREEN NEGATIVE; URINE BARBITURATES SCREEN NEGATIVE; URINE BENZODIAZEPINES SCREEN NEGATIVE; URINE COCAINE SCREEN NEGATIVE; URINE METHADONE SCREEN NEGATIVE; URINE PHENCYCLIDINE SCREEN NEGATIVE
--- NOTE | 2019-06-06 13:36 | EKG REPORT ---
SEVERITY:- ABNORMAL ECG - SINUS RHYTHM FIRST DEGREE AV BLOCK PROBABLE LEFT ATRIAL ABNORMALITY BORDERLINE LEFT AXIS DEVIATION CONSIDER ANTEROSEPTAL INFARCT NONSPECIFIC T ABNORMALITIES, LATERAL LEADS : Confirmed by: Carmencita Garibay 06-Jun-2019 13:36:05
[2019-06-06 13:37] LABS: URINE MARIJUANA (THC) SCREEN UNCONFIRMED POSITIVE
[2019-06-06] MEDS: INSULIN LISPRO 100 UNIT/ML 3 ML VIAL SUBCUT SCH ×2 (16:35→21:36)
[2019-06-06] MEDS: HYDROCHLOROTHIAZIDE 25 MG TABLET PO SCH (17:35)
[2019-06-06 18:56] LABS: CREATINE KINASE MB 4.13 ng/mL (<4.55); TROPONIN I 0.018 ng/mL
[2019-06-06] MEDS ORDERED: LOSARTAN POTASSIUM 50 MG TABLET PO SCH (22:00)
[2019-06-07 05:37] LABS: ABSOLUTE LYMPHOCYTES (AUTO) 1.3 10^3/uL (0.5-4.7); ABSOLUTE MONOCYTES (AUTO) 1.1 10^3/uL (0.1-1.4); ABSOLUTE NEUT (AUTO) 12.3 10^3/uL (1.7-8.2); BASOPHILS % (AUTO) 0.3 % (0-2); EOSINOPHILS % (AUTO) 0.3 % (0-6); HEMATOCRIT 47.6 % (37.9-51.0); HEMOGLOBIN 16.1 g/dL (13.5-17.0); MEAN CORPUSCULAR HEMOGLOBIN 30.8 pg (27.0-33.4); MEAN CORPUSCULAR HGB CONC 33.9 g/dL (32.0-36.0); MEAN CORPUSCULAR VOLUME 91 fl (80-97); MONOCYTES % (AUTO) 7.2 % (3-13); PLATELET COUNT 189 10^3/uL (150-450); RED BLOOD COUNT 5.23 10^6/uL (4.35-5.55); RED CELL DISTRIBUTION WIDTH 14.1 % (11.5-14.0); SEGMENTED NEUTROPHILS % (AUTO) 83.2 % (42-78); TOTAL CELLS COUNTED % (AUTO) 100 %; WHITE BLOOD COUNT 14.8 10^3/uL (4.0-10.5)
[2019-06-07 05:57] LABS: ANION GAP 10 (5-19); BLOOD UREA NITROGEN 31 mg/dL (7-20); CALCIUM 9.9 mg/dL (8.4-10.2); CARBON DIOXIDE 29 mmol/L (22-30); CHLORIDE 100 mmol/L (98-107); GLUCOSE 114 mg/dL (75-110); POTASSIUM 4.8 mmol/L (3.6-5.0)
[2019-06-07] MEDS: HYDROCHLOROTHIAZIDE 25 MG TABLET PO SCH ×2 (06:24→17:08)
[2019-06-07] MEDS: HEPARIN SOD (PORCINE) 5,000 UNIT/ML 1 ML VIAL SUBCUT SCH ×3 (06:24→22:25)
[2019-06-07] MEDS ORDERED: FUROSEMIDE INJ/PF 40 MG/4 ML SDV IV SCH (08:00)
[2019-06-07] MEDS: INSULIN LISPRO 100 UNIT/ML 3 ML VIAL SUBCUT SCH ×4 (08:54→22:14)
--- NOTE | 2019-06-07 09:21 | PDOC PROGRESS REPORT ---
Subjective Progress Note for:: 06/07/19 Subjective:: SONIYA LUEVANO is a 58 year old male with a past medical history of hypertension, obesity, polysubstance abuse, congestive heart failure with an ejection fraction of 35% from stress test October 2017. Patient presents with 24 hours of shortness of breath with exertion, orthopnea prompting him to check his blood pressure finding it to be in the 220 systolic range he comes to the emergency room and is found to have hypertensive urgency requiring nitrates, IV hydralazine, IV Lasix. He is pain-free and referred to the hospitalist for admission. Patient admits to intentional 100 pound weight loss over the last 18 months but has discontinued all medications with exception to homeopathic medications including vinegar. He denies knowledge of intentional stimulant, energy drinks or weight loss supplements. No acute events overnight. Blood pressure not optimized. Denies any chest pain, ambulatory, p.o. tolerant, having normal bowel and bladder movement. Denies any shortness of breath, nausea, vomiting, diarrhea, constipation or any urinary symptoms. Reason For Visit: HTN URGENCY,CHEST PAIN,HEART FAILURE Physical Exam Vital Signs: Temp Pulse Resp BP Pulse Ox 97.9 F 72 18 169/95 H 94 06/07/19 08:37 06/07/19 08:37 06/07/19 08:37 06/07/19 08:37 06/07/19 08:37 Intake & Output 06/06/19 06/07/19 06/08/19 06:59 06:59 06:59 Intake Total 120 300 Output Total 450 Balance -450 120 300 Weight 115.8 kg 115.8 kg General appearance: PRESENT: no acute distress, obese, well-developed, well-nourished Head exam: PRESENT: atraumatic, normocephalic Eye exam: PRESENT: conjunctiva pink, EOMI, PERRLA. ABSENT: scleral icterus Ear exam: PRESENT: normal external ear exam Mouth exam: PRESENT: moist, tongue midline Neck exam: ABSENT: carotid bruit, JVD, lymphadenopathy, thyromegaly Respiratory exam: PRESENT: clear to auscultation rachell. ABSENT: rales, rhonchi, wheezes Cardiovascular exam: PRESENT: RRR. ABSENT: diastolic murmur, rubs, systolic murmur Pulses: PRESENT: normal dorsalis pedis pul Vascular exam: PRESENT: normal capillary refill GI/Abdominal exam: PRESENT: normal bowel sounds, soft. ABSENT: distended, guarding, mass, organolmegaly, rebound, tenderness Rectal exam: PRESENT: deferred Extremities exam: PRESENT: full ROM. ABSENT: calf tenderness, clubbing, pedal edema Neurological exam: PRESENT: alert, awake, oriented to person, oriented to place, oriented to time, oriented to situation, CN II-XII grossly intact. ABSENT: motor sensory deficit Psychiatric exam: PRESENT: appropriate affect, normal mood. ABSENT: homicidal ideation, suicidal ideation Skin exam: PRESENT: dry, intact, warm. ABSENT: cyanosis, rash Results Laboratory Results: 06/07/19 04:34 06/07/19 04:34 06/07/19 06/07/19 04:34 04:34 WBC 14.8 H RBC 5.23 Hgb 16.1 Hct 47.6 MCV 91 MCH 30.8 MCHC 33.9 RDW 14.1 H Plt Count 189 Seg Neutrophils % 83.2 H Lymphocytes % 9.0 L Monocytes % 7.2 Eosinophils % 0.3 Basophils % 0.3 Absolute Neutrophils 12.3 H Absolute Lymphocytes 1.3 Absolute Monocytes 1.1 Absolute Eosinophils 0.0 Absolute Basophils 0.0 Sodium 138.6 Potassium 4.8 Chloride 100 Carbon Dioxide 29 Anion Gap 10 BUN 31 H Creatinine 1.25 Est GFR ( Amer) > 60 Est GFR (Non-Af Amer) 59 L Glucose 114 H Calcium 9.9 06/06/19 06/06/19 06/06/19 01:55 06:20 06:20 Creatine Kinase 105 CK-MB (CK-2) 4.44 Troponin I 0.034 0.036 NT-Pro-B Natriuret Pep 1880 H 06/06/19 06/06/19 06/06/19 12:21 12:21 18:05 Creatine Kinase 93 86 CK-MB (CK-2) 4.09 Troponin I 0.023 NT-Pro-B Natriuret Pep 06/06/19 18:05 Creatine Kinase CK-MB (CK-2) 4.13 Troponin I 0.018 NT-Pro-B Natriuret Pep Impressions: Chest X-Ray 06/06/19 00:00 IMPRESSION: Questionable right basilar pneumonia, likely in the right middle lobe. Assessment and Plan - Diagnosis (1) Hypertensive urgency Is this a current diagnosis for this admission?: Yes Plan: Improving not optimized. Due to noncompliance. Patient does not take any blood pressure meds. Counseled on importance of medication adherence. Switch to lisinopril 40 mg p.o. twice daily, HCTZ and Lasix. Patient would like to be placed on medications which are affordable as patient is not medication compliant due to financial reasons. (2) Elevated troponin Is this a current diagnosis for this admission?: Yes Plan: Due to hypertensive emergency. Denies any anginal symptoms. 0.034, 0.036, 0.0823, 0.018 respectively. Continue antiplatelets, optimize BP. Pending 2D echo. (3) Obesity Qualifiers: Body mass index: BMI 38.0-38.9 Is this a current diagnosis for this admission?: Yes Plan: Patient has lost 100 pounds over the last 1 year, with diet and exercise. Encouraged and counseled on healthy weight loss. Continue diet and lifestyle modification. (4) Diabetes mellitus type 2, diet-controlled Is this a current diagnosis for this admission?: Yes Plan: Diet controlled. A1c 6.4. Patient would like to continue controlling diabetes with diet and exercise. Does not want to be started on any medications at this point. Outpatient PCP follow-up. (5) Former smoker Is this a current diagnosis for this admission?: Yes Plan: Encouraged abstinence.
[2019-06-07] MEDS: LISINOPRIL 10 MG TABLET PO SCH ×2 (09:53→22:24)
[2019-06-07] MEDS: DOCUSATE SODIUM 100 MG CAPSULE PO SCH (09:53)
[2019-06-07] MEDS: ASPIRIN 81 MG TABLET, ENT COATED PO SCH (09:54)
[2019-06-07] MEDS ORDERED: NITROGLYCERIN 5 MG (0.2 MG/HR) PATCH.TD24 TD SCH (10:00)
[2019-06-07] MEDS ORDERED: FUROSEMIDE 40 MG TABLET PO SCH (10:00)
[2019-06-07] MEDS ORDERED: LISINOPRIL 10 MG TABLET PO SCH (10:00)
--- NOTE | 2019-06-07 22:18 | XCELERA REPORT ---
[address] [address] Transthoracic Echocardiogram Report Name: SONIYA LUEVANO Age: 58 yrs Gender: Male : 1960 Patient Status: Inpatient Patient Location: [place] [address]^A Study Date: 06/06/2019 08:12 AM Height: 68 in Weight: 255 lb BSA: 2.3 m2 Procedure: A two-dimensional transthoracic echocardiogram with color flow and Doppler was performed. The study was technically difficult with many images being suboptimal in quality. The study was technically limited with all images being suboptimal in quality. Reason For Study: s4 Ordering Physician: JULIETTE SANDOVAL Performed By: Daria Husain Interpretation Summary The left ventricle is normal in size. There is mild concentric left ventricular hypertrophy. Left ventricular systolic function is low normal. LV EF is 55% Doppler measurements suggest normal left ventricular diastolic function The left ventricular wall motion is normal. There is no thrombus. Cnnot assess for ASD,VSD , or PFO. Right atrium not well visualized secondary to technical limitations The left atrium is moderately dilated. There is no evidence of mitral valve prolapse. There is no vegetation seen on the mitral valve. There is no mitral valve stenosis. There is a trace amount of mitral regurgitation There is no aortic valve stenosis There is no LVOT obstruction. No aortic regurgitation is present. There is no tricuspid stenosis. There is a trace amount of tricuspid regurgitation Right ventricular systolic pressure is normal. RVSP is 13 to 18 mm of Hg , with RA mean of 5 to 10. The pulmonic valve is not well visualized. There is no pulmonic valvular stenosis. There is a trace amount of pulmonic regurgitation The aortic root is normal size. The inferior vena cava appeared normal and decreased > 50% with respiration (RAP 5-10 mmHg) The inferior vena cava was not well visualized There is no pericardial effusion. MMode/2D Measurements & Calculations RVDd: 3.5 cm LVIDd: 4.8 cm FS: 28.2 % Ao root diam: 3.7 cm IVSd: 1.4 cm LVIDs: 3.5 cm EDV(Teich): Ao root area: 108.1 ml LVPWd: 1.6 cm 10.6 cm2 ESV(Teich): 49.2 ml EF(Teich): 54.5 % EDV(MOD-sp4): SV(MOD-sp4): 229.4 ml 86.4 ml ESV(MOD-sp4): 143.0 ml EF(MOD-sp4): 37.7 % Doppler Measurements & Calculations MV E max sharmila: MV dec slope: Ao V2 max: LV V1 max P.1 cm/sec 105.8 cm/sec 3.3 mmHg MV A max sharmila: 724.1 cm/sec2 Ao max P.5 mmHgLV V1 max: 34.8 cm/sec MV dec time: 0.14 sec 91.3 cm/sec MV E/A: 3.0 PA V2 max: PI end-d sharmila: TR max sharmila: 82.8 cm/sec 127.8 cm/sec 141.4 cm/sec PA max P.7 mmHg TR max P.0 mmHg Left Ventricle The left ventricle is normal in size. There is mild concentric left ventricular hypertrophy. Left ventricular systolic function is low normal. LV EF is 55%. Doppler measurements suggest normal left ventricular diastolic function. The left ventricular wall motion is normal. There is no thrombus. Cnnot assess for ASD,VSD , or PFO. Right Ventricle The right ventricle is not well visualized secondary to technical limitations. Atria Right atrium not well visualized secondary to technical limitations. The left atrium is moderately dilated. Mitral Valve There is no evidence of mitral valve prolapse. There is no vegetation seen on the mitral valve. There is no mitral valve stenosis. There is a trace amount of mitral regurgitation. Aortic Valve There is no aortic valve stenosis. There is no LVOT obstruction. No aortic regurgitation is present. Tricuspid Valve There is no tricuspid stenosis. There is a trace amount of tricuspid regurgitation. Right ventricular systolic pressure is normal. RVSP is 13 to 18 mm of Hg , with RA mean of 5 to 10. Pulmonic Valve The pulmonic valve is not well visualized. There is no pulmonic valvular stenosis. There is a trace amount of pulmonic regurgitation. Great Vessels The aortic root is normal size. The inferior vena cava appeared normal and decreased > 50% with respiration (RAP 5-10 mmHg). The inferior vena cava was not well visualized. Effusions There is no pericardial effusion. : JULIETTE SANDOVAL > Grisle Griffiths
[2019-06-07] MEDS ORDERED: GUAIFENESIN SYRP 200 MG/10 ML UDC PO PRN (23:37)
[2019-06-08 05:27] LABS: ABSOLUTE BASOPHILS # (AUTO) 0.1 10^3/uL (0.0-0.2); ABSOLUTE EOSINOPHILS # (AUTO) 0.3 10^3/uL (0.0-0.6); ABSOLUTE LYMPHOCYTES (AUTO) 2.6 10^3/uL (0.5-4.7); ABSOLUTE NEUT (AUTO) 7.1 10^3/uL (1.7-8.2); BASOPHILS % (AUTO) 0.5 % (0-2); EOSINOPHILS % (AUTO) 2.4 % (0-6); HEMATOCRIT 54.1 % (37.9-51.0); LYMPHOCYTES % (AUTO) 23.9 % (13-45); MEAN CORPUSCULAR HEMOGLOBIN 30.7 pg (27.0-33.4); MEAN CORPUSCULAR HGB CONC 33.6 g/dL (32.0-36.0); MEAN CORPUSCULAR VOLUME 91 fl (80-97); MONOCYTES % (AUTO) 9.1 % (3-13); PLATELET COUNT 220 10^3/uL (150-450); RED BLOOD COUNT 5.92 10^6/uL (4.35-5.55); RED CELL DISTRIBUTION WIDTH 14.5 % (11.5-14.0); SEGMENTED NEUTROPHILS % (AUTO) 64.1 % (42-78); TOTAL CELLS COUNTED % (AUTO) 100 %; WHITE BLOOD COUNT 11.1 10^3/uL (4.0-10.5)
[2019-06-08 06:32] LABS: HEMOGLOBIN 18.2 g/dL (13.5-17.0)
[2019-06-08] MEDS: HYDROCHLOROTHIAZIDE 25 MG TABLET PO SCH ×2 (06:51→17:20)
[2019-06-08] MEDS: HEPARIN SOD (PORCINE) 5,000 UNIT/ML 1 ML VIAL SUBCUT SCH ×3 (06:51→21:28)
[2019-06-08] MEDS: INSULIN LISPRO 100 UNIT/ML 3 ML VIAL SUBCUT SCH ×4 (07:40→21:26)
[2019-06-08] MEDS ORDERED: LISINOPRIL 10 MG TABLET PO ONE (08:00)
[2019-06-08] MEDS ORDERED: FUROSEMIDE 40 MG TABLET PO ONE (08:00)
[2019-06-08] MEDS: ASPIRIN 81 MG TABLET, ENT COATED PO SCH (09:25)
[2019-06-08] MEDS: DOCUSATE SODIUM 100 MG CAPSULE PO SCH (09:25)
[2019-06-08] MEDS ORDERED: AMLODIPINE BESYLATE 5 MG TABLET PO SCH ×2 (10:00)
[2019-06-08] MEDS ORDERED: AMLODIPINE BESYLATE 5 MG TABLET PO ONE (12:30)
[2019-06-08 14:51] LABS: CREATINE KINASE MB 3.3 ng/mL (<4.55); TROPONIN I 0.02 ng/mL
[2019-06-08] MEDS ORDERED: ISOSORBIDE MONONITRATE 60 MG TAB.ER.24H PO SCH (16:00)
[2019-06-08] MEDS: MORPHINE SULFATE 10 MG/ML INJ IV PRN (16:13)
--- NOTE | 2019-06-08 19:05 | PDOC PROGRESS REPORT ---
Subjective Progress Note for:: 06/08/19 Subjective:: SONIYA LUEVANO is a 58 year old male with a past medical history of hypertension, obesity, polysubstance abuse, congestive heart failure with an ejection fraction of 35% from stress test October 2017. Patient presents with 24 hours of shortness of breath with exertion, orthopnea prompting him to check his blood pressure finding it to be in the 220 systolic range he comes to the emergency room and is found to have hypertensive urgency requiring nitrates, IV hydralazine, IV Lasix. He is pain-free and referred to the hospitalist for admission. Patient admits to intentional 100 pound weight loss over the last 18 months but has discontinued all medications with exception to homeopathic medications including vinegar. He denies knowledge of intentional stimulant, energy drinks or weight loss supplements. No acute events overnight. Blood pressure not optimized. Denies any chest pain, ambulatory, p.o. tolerant, having normal bowel and bladder movement. Denies any shortness of breath, nausea, vomiting, diarrhea, constipation or any urinary symptoms. 06/08/2017. No acute events overnight. Patient was planned to be discharged home however his blood pressure was not optimized and also seen complaining of chest pain. Denies any fever, chills, nausea, vomiting, diarrhea, constipation or any urinary symptoms. Reason For Visit: HTN URGENCY,CHEST PAIN,HEART FAILURE Physical Exam Vital Signs: Temp Pulse Resp BP Pulse Ox 98.2 F 81 20 118/76 94 06/08/19 15:41 06/08/19 15:41 06/08/19 15:41 06/08/19 17:00 06/08/19 15:41 Intake & Output 06/07/19 06/08/19 06/09/19 06:59 06:59 06:59 Intake Total 120 2318 600 Output Total 550 Balance 120 2318 50 Weight 115.8 kg 110.6 kg General appearance: PRESENT: no acute distress, well-developed, well-nourished Head exam: PRESENT: atraumatic, normocephalic Eye exam: PRESENT: conjunctiva pink, EOMI, PERRLA. ABSENT: scleral icterus Ear exam: PRESENT: normal external ear exam Mouth exam: PRESENT: moist, tongue midline Neck exam: ABSENT: carotid bruit, JVD, lymphadenopathy, thyromegaly Respiratory exam: PRESENT: clear to auscultation rachell. ABSENT: rales, rhonchi, wheezes Cardiovascular exam: PRESENT: RRR. ABSENT: diastolic murmur, rubs, systolic murmur Pulses: PRESENT: normal dorsalis pedis pul Vascular exam: PRESENT: normal capillary refill GI/Abdominal exam: PRESENT: normal bowel sounds, soft. ABSENT: distended, guarding, mass, organolmegaly, rebound, tenderness Rectal exam: PRESENT: deferred Extremities exam: PRESENT: full ROM. ABSENT: calf tenderness, clubbing, pedal edema Neurological exam: PRESENT: alert, awake, oriented to person, oriented to place, oriented to time, oriented to situation, CN II-XII grossly intact. ABSENT: motor sensory deficit Psychiatric exam: PRESENT: appropriate affect, normal mood. ABSENT: homicidal ideation, suicidal ideation Skin exam: PRESENT: dry, intact, warm. ABSENT: cyanosis, rash Results Laboratory Results: 06/08/19 04:13 06/07/19 04:34 06/08/19 04:13 WBC 11.1 H RBC 5.92 H Hgb 18.2 H D Hct 54.1 H MCV 91 MCH 30.7 MCHC 33.6 RDW 14.5 H Plt Count 220 Seg Neutrophils % 64.1 Lymphocytes % 23.9 Monocytes % 9.1 Eosinophils % 2.4 Basophils % 0.5 Absolute Neutrophils 7.1 Absolute Lymphocytes 2.6 Absolute Monocytes 1.0 Absolute Eosinophils 0.3 Absolute Basophils 0.1 06/06/19 06/06/19 06/06/19 01:55 06:20 06:20 Creatine Kinase 105 CK-MB (CK-2) 4.44 Troponin I 0.034 0.036 NT-Pro-B Natriuret Pep 1880 H 06/06/19 06/06/19 06/06/19 12:21 12:21 18:05 Creatine Kinase 93 86 CK-MB (CK-2) 4.09 Troponin I 0.023 NT-Pro-B Natriuret Pep 06/06/19 06/08/19 06/08/19 18:05 14:10 14:10 Creatine Kinase 83 CK-MB (CK-2) 4.13 3.30 Troponin I 0.018 0.020 NT-Pro-B Natriuret Pep Impressions: Chest X-Ray 06/06/19 00:00 IMPRESSION: Questionable right basilar pneumonia, likely in the right middle lobe. Assessment and Plan - Diagnosis (1) Hypertensive urgency Is this a current diagnosis for this admission?: Yes Plan: Improving not optimized. Due to noncompliance. Patient does not take any blood pressure meds. Counseled on importance of medication adherence. Switch to lisinopril 40 mg p.o. twice daily, HCTZ and Lasix. Patient would like to be placed on medications which are affordable as patient is not medication compliant due to financial reasons. (2) Elevated troponin Is this a current diagnosis for this admission?: Yes Plan: Due to hypertensive emergency. Denies any anginal symptoms. 0.034, 0.036, 0.0823, 0.018 respectively. Continue antiplatelets, optimize BP. Pending 2D echo. Stress test ordered. (3) Obesity Qualifiers: Body mass index: BMI 38.0-38.9 Is this a current diagnosis for this admission?: Yes Plan: Patient has lost 100 pounds over the last 1 year, with diet and exercise. Encouraged and counseled on healthy weight loss. Continue diet and lifestyle modification. (4) Diabetes mellitus type 2, diet-controlled Is this a current diagnosis for this admission?: Yes Plan: Diet controlled. A1c 6.4. Patient would like to continue controlling diabetes with diet and exercise. Does not want to be started on any medications at this point. Outpatient PCP follow-up. (5) Former smoker Is this a current diagnosis for this admission?: Yes Plan: Encouraged abstinence.
--- NOTE | 2019-06-08 20:33 | EKG REPORT ---
SEVERITY:- ABNORMAL ECG - SINUS RHYTHM FIRST DEGREE AV BLOCK LEFT ATRIAL ABNORMALITY ANTERIOR INFARCT, AGE INDETERMINATE : Confirmed by: Carmencita Garibay 08-Jun-2019 20:31:56
[2019-06-08 20:36] LABS: CREATINE KINASE MB 2.87 ng/mL (<4.55); TROPONIN I 0.029 ng/mL
[2019-06-08] MEDS: LISINOPRIL 10 MG TABLET PO SCH (23:28)
[2019-06-09 02:16] LABS: ABSOLUTE BASOPHILS # (AUTO) 0.1 10^3/uL (0.0-0.2); ABSOLUTE EOSINOPHILS # (AUTO) 0.2 10^3/uL (0.0-0.6); ABSOLUTE LYMPHOCYTES (AUTO) 1.6 10^3/uL (0.5-4.7); ABSOLUTE MONOCYTES (AUTO) 1.1 10^3/uL (0.1-1.4); ABSOLUTE NEUT (AUTO) 9.6 10^3/uL (1.7-8.2); BASOPHILS % (AUTO) 0.6 % (0-2); EOSINOPHILS % (AUTO) 1.2 % (0-6); HEMATOCRIT 51.5 % (37.9-51.0); LYMPHOCYTES % (AUTO) 12.5 % (13-45); MEAN CORPUSCULAR HGB CONC 32.9 g/dL (32.0-36.0); MEAN CORPUSCULAR VOLUME 91 fl (80-97); PLATELET COUNT 212 10^3/uL (150-450); RED BLOOD COUNT 5.66 10^6/uL (4.35-5.55); RED CELL DISTRIBUTION WIDTH 14.5 % (11.5-14.0); SEGMENTED NEUTROPHILS % (AUTO) 76.7 % (42-78); TOTAL CELLS COUNTED % (AUTO) 100 %; WHITE BLOOD COUNT 12.5 10^3/uL (4.0-10.5)
[2019-06-09 02:34] LABS: ALANINE AMINOTRANSFERASE 24 U/L (21-72); ALBUMIN 4.1 g/dL (3.5-5.0); ALKALINE PHOSPHATASE 90 U/L (38-126); ANION GAP 9 (5-19); ASPARTATE AMINO TRANSFERASE 25 U/L (17-59); BILIRUBIN,DIRECT 0.4 mg/dL (0.0-0.4); BILIRUBIN,TOTAL 0.5 mg/dL (0.2-1.3); BLOOD UREA NITROGEN 53 mg/dL (7-20); CALCIUM 9.6 mg/dL (8.4-10.2); CARBON DIOXIDE 36 mmol/L (22-30); CHLORIDE 89 mmol/L (98-107); GLUCOSE 190 mg/dL (75-110); POTASSIUM 5.3 mmol/L (3.6-5.0)
[2019-06-09 02:46] LABS: CREATINE KINASE MB 2.9 ng/mL (<4.55); TROPONIN I 0.022 ng/mL
[2019-06-09] MEDS: HYDROCHLOROTHIAZIDE 25 MG TABLET PO SCH (06:12)
[2019-06-09] MEDS: HEPARIN SOD (PORCINE) 5,000 UNIT/ML 1 ML VIAL SUBCUT SCH ×2 (06:53→14:01)
[2019-06-09] MEDS ORDERED: HYDRALAZINE HCL INJ/PF 20 MG/1 ML SDV IV PRN (06:55)
[2019-06-09] MEDS ORDERED: SODIUM POLYSTYRENE SULFONATE 15 GM/60 ML PO ONE (07:30)
[2019-06-09] MEDS: INSULIN LISPRO 100 UNIT/ML 3 ML VIAL SUBCUT SCH ×3 (07:39→16:25)
[2019-06-09] MEDS: ACETAMINOPHEN 325 MG TABLET PO PRN ×2 (07:53→14:09)
[2019-06-09] MEDS: NORMAL SALINE 1000 ML 1,000 ML IV PRN ×2 (07:54→19:31)
[2019-06-09] MEDS ORDERED: AMLODIPINE BESYLATE 10 MG TABLET PO SCH (10:00)
[2019-06-09] MEDS ORDERED: CARVEDILOL 12.5 MG TABLET PO SCH (10:00)
[2019-06-09] MEDS ORDERED: LISINOPRIL 10 MG TABLET PO SCH (10:00)
[2019-06-09] MEDS ORDERED: ISOSORBIDE MONONITRATE 30 MG TAB.ER.24H PO SCH (10:00)
[2019-06-09] MEDS ORDERED: ASPIRIN 81 MG TABLET, ENT COATED PO SCH (10:00)
--- NOTE | 2019-06-09 10:04 | PDOC PROGRESS REPORT ---
Subjective Progress Note for:: 06/09/19 Subjective:: SONIYA LUEVANO is a 58 year old male with a past medical history of hypertension, obesity, polysubstance abuse, congestive heart failure with an ejection fraction of 35% from stress test October 2017. Patient presents with 24 hours of shortness of breath with exertion, orthopnea prompting him to check his blood pressure finding it to be in the 220 systolic range he comes to the emergency room and is found to have hypertensive urgency requiring nitrates, IV hydralazine, IV Lasix. He is pain-free and referred to the hospitalist for admission. Patient admits to intentional 100 pound weight loss over the last 18 months but has discontinued all medications with exception to homeopathic medications including vinegar. He denies knowledge of intentional stimulant, energy drinks or weight loss supplements. No acute events overnight. Blood pressure not optimized. Denies any chest pain, ambulatory, p.o. tolerant, having normal bowel and bladder movement. Denies any shortness of breath, nausea, vomiting, diarrhea, constipation or any urinary symptoms. 06/08/2017. No acute events overnight. Patient was planned to be discharged home however his blood pressure was not optimized and also seen complaining of chest pain. Denies any fever, chills, nausea, vomiting, diarrhea, constipation or any urinary symptoms. 06/09/2019. Stating that last night he started to have 1 of his "smokers cough" right after that he had a fall, denies any palpitation, lightheadedness, syncope, dizziness, vertigo prior to the fall. Not have any head trauma. Still complaining of headache since being started on M door yesterday. Otherwise no complaints. Denies any fever, chills, nausea, vomiting, diarrhea, constipation or any urinary symptoms. Reason For Visit: HTN URGENCY,CHEST PAIN,HEART FAILURE Physical Exam Vital Signs: Temp Pulse Resp BP Pulse Ox 97.4 F 62 18 124/70 98 06/09/19 04:22 06/09/19 09:00 06/09/19 09:00 06/09/19 09:00 06/09/19 09:00 Intake & Output 06/08/19 06/09/19 06/10/19 06:59 06:59 06:59 Intake Total 2318 720 Output Total 840 Balance 2318 -120 Weight 110.6 kg 109.7 kg 109 kg General appearance: PRESENT: no acute distress, well-developed, well-nourished Head exam: PRESENT: atraumatic, normocephalic Eye exam: PRESENT: conjunctiva pink, EOMI, PERRLA. ABSENT: scleral icterus Ear exam: PRESENT: normal external ear exam Mouth exam: PRESENT: moist, tongue midline Neck exam: ABSENT: carotid bruit, JVD, lymphadenopathy, thyromegaly Respiratory exam: PRESENT: clear to auscultation rachell. ABSENT: rales, rhonchi, wheezes Cardiovascular exam: PRESENT: RRR. ABSENT: diastolic murmur, rubs, systolic m urmur Pulses: PRESENT: normal dorsalis pedis pul Vascular exam: PRESENT: normal capillary refill GI/Abdominal exam: PRESENT: normal bowel sounds, soft. ABSENT: distended, guarding, mass, organolmegaly, rebound, tenderness Rectal exam: PRESENT: deferred Extremities exam: PRESENT: full ROM. ABSENT: calf tenderness, clubbing, pedal edema Neurological exam: PRESENT: alert, awake, oriented to person, oriented to place, oriented to time, oriented to situation, CN II-XII grossly intact. ABSENT: motor sensory deficit Psychiatric exam: PRESENT: appropriate affect, normal mood. ABSENT: homicidal ideation, suicidal ideation Skin exam: PRESENT: dry, intact, warm. ABSENT: cyanosis, rash Results Laboratory Results: 06/09/19 02:01 06/09/19 02:01 06/09/19 06/09/19 02:01 02:01 WBC 12.5 H RBC 5.66 H Hgb 17.0 Hct 51.5 H MCV 91 MCH 30.0 MCHC 32.9 RDW 14.5 H Plt Count 212 Seg Neutrophils % 76.7 Lymphocytes % 12.5 L Monocytes % 9.0 Eosinophils % 1.2 Basophils % 0.6 Absolute Neutrophils 9.6 H Absolute Lymphocytes 1.6 Absolute Monocytes 1.1 Absolute Eosinophils 0.2 Absolute Basophils 0.1 Sodium 134.2 L Potassium 5.3 H Chloride 89 L Carbon Dioxide 36 H Anion Gap 9 BUN 53 H Creatinine 2.06 H Est GFR ( Amer) 40 L Est GFR (Non-Af Amer) 33 L Glucose 190 H Calcium 9.6 Total Bilirubin 0.5 AST 25 ALT 24 Alkaline Phosphatase 90 Total Protein 7.0 Albumin 4.1 07/06/06/19 06/06/19 01:55 06:20 06:20 Creatine Kinase 105 CK-MB (CK-2) 4.44 Troponin I 0.034 0.036 NT-Pro-B Natriuret Pep 1880 H 06/06/19 06/06/19 06/06/19 12:21 12:21 18:05 Creatine Kinase 93 86 CK-MB (CK-2) 4.09 Troponin I 0.023 NT-Pro-B Natriuret Pep 06/06/19 06/08/19 06/08/19 18:05 14:10 14:10 Creatine Kinase 83 CK-MB (CK-2) 4.13 3.30 Troponin I 0.018 0.020 NT-Pro-B Natriuret Pep 06/08/19 06/08/19 06/09/19 19:58 19:58 02:01 Creatine Kinase 68 65 CK-MB (CK-2) 2.87 Troponin I 0.029 NT-Pro-B Natriuret Pep 06/09/19 02:01 Creatine Kinase CK-MB (CK-2) 2.90 Troponin I 0.022 NT-Pro-B Natriuret Pep Impressions: Chest X-Ray 06/06/19 00:00 IMPRESSION: Questionable right basilar pneumonia, likely in the right middle lobe. Assessment and Plan - Diagnosis (1) Chest pain Qualifiers: Chest pain type: unspecified Qualified Code(s): R07.9 - Chest pain, unspecified Is this a current diagnosis for this admission?: Yes Plan: Likely due to hypertensive emergency. Patient has been complaining of on and off chest pain during this admission. Troponins has been trending between 0.034, 0.036, 0.0823, 0.018, 0.020, 0.029, 0.022 respectively. Due to the fact that patient has history of uncontrolled HTN, Abnormal EKG and DM he is high risk for CAD. Nuclear stress test scheduled for today. 06/09/2019. 2D echo LVEF 55%. Continue antiplatelets, statins, beta-blockers, ADRI. Follow-up stress test and consult Cardiology if abnormal. (2) Hypertensive urgency Is this a current diagnosis for this admission?: Yes Plan: Improved. SBP [id number] Unfortunately patient developed DANYEL and had one SBP of 104 and was complaining of lightheadedness yesterday and his meds needed to be cut back. 06/08/2019. Was started on HCTZ 25 mg p.o. BID and Lasix p.o. daily unfortunately he developed DANYEL and they had to be stopped. 06/08/2019. IMD[facility] ER was a started yesterday with good results but had to be stopped as patient developed headache. It may not be a good idea to DC on nitrates because of history of noncompliance. DC IMDUR, Lasix and HCTZ. Will start on: Lisinopril p.o. once daily. Coreg 12.5 mg p.o. twice daily. Monitor vitals adjust dosage as needed. If DANYEL does not get better or creatinine goes up his ADRI needs to be stopped too. (3) DANYEL (acute kidney injury) Is this a current diagnosis for this admission?: Yes Plan: Nonoliguric. Not sure if this is due to overcorrection of hypertensive emergency (lowest SBP 104) or medication induced such as Lasix, HCTZ and ADRI. Patient notified and counseled about DANYEL. DC HCTZ, Lasix. Cautious diuresis guided by volume status. Follow up BMP. (4) Obesity Qualifiers: Body mass index: BMI 38.0-38.9 Is this a current diagnosis for this admission?: Yes Plan: Patient has lost 100 pounds over the last 1 year, with diet and exercise. Encouraged and counseled on healthy weight loss. Continue diet and lifestyle modification. (5) Diabetes mellitus type 2, diet-controlled Is this a current diagnosis for this admission?: Yes Plan: Diet controlled. A1c 6.4. Patient would like to continue controlling diabetes with diet and exercise. Does not want to be started on any medications at this point. Outpatient PCP follow-up. (6) Former smoker Is this a current diagnosis for this admission?: Yes Plan: Encouraged abstinence. (7) Headache Is this a current diagnosis for this admission?: Yes Plan: Nitrate induced. Avoid nitrates if possible. Denies any history of head trauma, denies any numbness tingling on focal neurological symptoms. No focal neurological abnormalities observed on physical examination. (8) Hyperkalemia Is this a current diagnosis for this admission?: Yes Plan: Due to DANYEL. Hyperkalemia protocol. No EKG changes. BMP this p.m
[2019-06-09] MEDS: DOCUSATE SODIUM 100 MG CAPSULE PO SCH (11:52)
[2019-06-09] MEDS ORDERED: REGADENOSON INJ 0.4 MG/5 ML DISP.SYRIN IV ONE (11:53)
[2019-06-09 13:26] LABS: ANION GAP 9 (5-19); BLOOD UREA NITROGEN 50 mg/dL (7-20); CALCIUM 9.2 mg/dL (8.4-10.2); CARBON DIOXIDE 33 mmol/L (22-30); CHLORIDE 92 mmol/L (98-107); GLUCOSE 135 mg/dL (75-110)
[2019-06-09 13:37] LABS: POTASSIUM 4.2 mmol/L (3.6-5.0)
[2019-06-09] MEDS ORDERED: NITROGLYCERIN 0.4 MG/TAB 25 TAB/BOTTLE ONE (14:01)
[2019-06-09] MEDS: MORPHINE SULFATE 10 MG/ML INJ IV PRN (14:08)
[2019-06-09] MEDS ORDERED: NITROGLYCERIN 0.4 MG/TAB 25 TAB/BOTTLE SL PRN (14:35)
[2019-06-09] MEDS ORDERED: ASPIRIN 325 MG TABLET, ENT COATED PO ONE (15:00)
--- NOTE | 2019-06-09 16:32 | PDOC TRANSFER SUMMARY ---
General Admission Date/PCP: 06/06/19 03:52 Resuscitation Status: Full Code - Transfer Diagnosis (1) Hypertensive urgency Is this a current diagnosis for this admission?: Yes (2) DANYEL (acute kidney injury) Is this a current diagnosis for this admission?: Yes (3) Obesity Is this a current diagnosis for this admission?: Yes (4) Diabetes mellitus type 2, diet-controlled Is this a current diagnosis for this admission?: Yes (5) Former smoker Is this a current diagnosis for this admission?: Yes (6) Chest pain Is this a current diagnosis for this admission?: Yes (7) Headache Is this a current diagnosis for this admission?: Yes (8) Hyperkalemia Is this a current diagnosis for this admission?: Yes - Transfer Medications Home Medications: No Home Medications 06/06/19 Transfer Medications: Current Medications Acetaminophen (Tylenol 325 Mg Tablet) 650 mg PO Q4HP PRN PRN Reason: pain or temp greater than 101F Stop: 07/06/19 03:32 Last Admin: 06/09/19 14:09 Dose: 650 mg Documented by: Al Hydrox/Mg Hydrox/Simethicone (Maalox Plus Susp 30 Udcup) 30 ml PO Q4HP PRN PRN Reason: HEARTBURN Stop: 07/06/19 03:32 Last Admin: 06/08/19 13:00 Dose: 30 ml Documented by: Aspirin (Ecotrin 325 Mg Ec Tablet) 325 mg PO DAILY [facility] Stop: 07/10/19 09:59 Atorvastatin Calcium (Lipitor 10 Mg Tablet) 10 mg PO QHS [facility] Stop: 07/09/19 21:59 Carvedilol (Coreg 12.5 Mg Tablet) 12.5 mg PO DAILY [facility] Stop: 07/09/19 09:59 Last Admin: 06/09/19 11:53 Dose: 12.5 mg Documented by: Dextrose (Dextrose Inj 50% Syringe (25 Gm/50 Ml)) 25 gm IV PRN PRN; Protocol PRN Reason: PER PROTOCOL Stop: 07/06/19 12:46 Dextrose (Dextrose Inj 50% Syringe (25 Gm/50 Ml)) 12.5 gm IV PRN PRN; Protocol PRN Reason: FOR BG 50-69 IN ALERT PATIENT Stop: 07/06/19 12:46 Docusate Sodium (Colace 100 Mg Capsule) 100 mg PO DAILY [facility] Stop: 07/06/19 09:59 Last Admin: 06/09/19 11:52 Dose: 100 mg Documented by: Enoxaparin Sodium (Lovenox Inj 120 Mg/0.8 Ml Disp.Syrin) 110 mg SUBCUT Q12 [facility] Stop: 07/09/19 21:59 Glucagon (Glucagen Inj 1 Mg Vial) 1 mg IM PRN PRN; Protocol PRN Reason: Evaluate for BG < 70 Stop: 07/06/19 12:46 Glucose (Glutose 40% Gel 15 Gm Tube) 15 gm PO PRN PRN; Protocol PRN Reason: FOR BG 50-69 IN ALERT PATIENT Stop: 07/06/19 12:46 Glucose (Glutose 40% Gel 15 Gm Tube) 30 gm PO PRN PRN; Protocol PRN Reason: FOR BG < 50 IN ALERT PATIENT Stop: 07/06/19 12:46 Guaifenesin (Robitussin Syrup 200 Mg/10 Ml Ud Cup) 200 mg PO Q4HP PRN PRN Reason: COUGH Stop: 07/07/19 23:36 Hydralazine HCl (Apresoline Inj/Pf 20 Mg/1 Ml Sdv) 10 mg IV Q3HP PRN PRN Reason: Give For Sbp > [150] Stop: 07/09/19 06:54 Sodium Chloride (Nacl 0.9% 1000 Ml Iv Soln) 1,000 mls @ 150 mls/hr IV CONTINUOUS PRN PRN Reason: THIS MED IS NOT "PRN" Stop: 07/09/19 06:53 Last Infusion: 06/09/19 12:25 Dose: 150 mls/hr Documented by: Insulin Human Lispro (Humalog Insulin 100 Unit/1 Ml 3 Ml Vial) 0 - 12 unit SUBCUT ACHS [facility]; Protocol Stop: 07/06/19 15:59 Last Admin: 06/09/19 11:19 Dose: Not Given Documented by: Lisinopril (Prinivil 10 Mg Tablet) 40 mg PO DAILY [facility] Stop: 07/09/19 09:59 Last Admin: 06/09/19 11:52 Dose: 40 mg Documented by: Magnesium Hydroxide (Milk Of Magnesia 30 Ml Udcup) 30 ml PO HSP PRN PRN Reason: FOR CONSTIPATION Stop: 07/06/19 03:32 Last Admin: 06/07/19 06:25 Dose: 30 ml Documented by: Morphine Sulfate (Morphine 10 Mg/Ml Inj) 1 mg IV Q6HP PRN PRN Reason: FOR PAIN Stop: 06/15/19 15:24 Last Admin: 06/09/19 14:08 Dose: 1 mg Documented by: Nitroglycerin (Nitrostat 0.4 Mg (1/150 Gr) Tabs 25/Bottle) 1 tab SL Q5MP PRN PRN Reason: CHEST PAIN Sodium Chloride (Saline Flush 2.5 Ml Monoject Prefil Syrin) 2.5 ml IV Q8 [facility] Stop: 07/06/19 05:59 Last Admin: 06/09/19 14:00 Dose: Not Given Documented by: - Allergies Allergies/Adverse Reactions: gluten Allergy (Verified 06/06/19 08:31) Physical Exam Vital Signs: Temp Pulse Resp BP Pulse Ox 97.4 F 71 20 116/59 L 97 06/09/19 15:39 06/09/19 15:39 06/09/19 15:39 06/09/19 15:39 06/09/19 15:39 Intake & Output 06/08/19 06/09/19 06/10/19 06:59 06:59 06:59 Intake Total 2318 720 293 Output Total 840 600 Balance 2318 120 -307 Weight 110.6 kg 109.7 kg 109 kg Results Laboratory Results: 06/09/19 02:01 06/09/19 12:49 06/09/19 06/09/19 06/09/19 02:01 02:01 12:49 WBC 12.5 H RBC 5.66 H Hgb 17.0 Hct 51.5 H MCV 91 MCH 30.0 MCHC 32.9 RDW 14.5 H Plt Count 212 Seg Neutrophils % 76.7 Lymphocytes % 12.5 L Monocytes % 9.0 Eosinophils % 1.2 Basophils % 0.6 Absolute Neutrophils 9.6 H Absolute Lymphocytes 1.6 Absolute Monocytes 1.1 Absolute Eosinophils 0.2 Absolute Basophils 0.1 Sodium 134.2 L 133.7 L Potassium 5.3 H 4.2 D Chloride 89 L 92 L Carbon Dioxide 36 H 33 H Anion Gap 9 9 BUN 53 H 50 H Creatinine 2.06 H 1.72 H Est GFR ( Amer) 40 L 49 L Est GFR (Non-Af Amer) 33 L 41 L Glucose 190 H 135 H Calcium 9.6 9.2 Total Bilirubin 0.5 AST 25 ALT 24 Alkaline Phosphatase 90 Total Protein 7.0 Albumin 4.1 06/06/19 06/06/19 06/06/19 01:55 06:20 06:20 Creatine Kinase 105 CK-MB (CK-2) 4.44 Troponin I 0.034 0.036 NT-Pro-B Natriuret Pep 1880 H 06/06/19 06/06/19 06/06/19 12:21 12:21 18:05 Creatine Kinase 93 86 CK-MB (CK-2) 4.09 Troponin I 0.023 NT-Pro-B Natriuret Pep 06/06/19 06/08/19 06/08/19 18:05 14:10 14:10 Creatine Kinase 83 CK-MB (CK-2) 4.13 3.30 Troponin I 0.018 0.020 NT-Pro-B Natriuret Pep 06/08/19 06/08/19 06/09/19 19:58 19:58 02:01 Creatine Kinase 68 65 CK-MB (CK-2) 2.87 Troponin I 0.029 NT-Pro-B Natriuret Pep 06/09/19 02:01 Creatine Kinase CK-MB (CK-2) 2.90 Troponin I 0.022 NT-Pro-B Natriuret Pep Impressions: Chest X-Ray 06/06/19 00:00 IMPRESSION: Questionable right basilar pneumonia, likely in the right middle lobe.
--- NOTE | 2019-06-09 16:35 | PDOC TRANSFER SUMMARY ---
General Admission Date/PCP: 06/06/19 03:52 Resuscitation Status: Full Code - Transfer Diagnosis (1) Chest pain Is this a current diagnosis for this admission?: Yes (2) Hypertensive urgency Is this a current diagnosis for this admission?: Yes (3) DANYEL (acute kidney injury) Is this a current diagnosis for this admission?: Yes (4) Obesity Is this a current diagnosis for this admission?: Yes (5) Diabetes mellitus type 2, diet-controlled Is this a current diagnosis for this admission?: Yes (6) Former smoker Is this a current diagnosis for this admission?: Yes (7) Headache Is this a current diagnosis for this admission?: Yes (8) Hyperkalemia Is this a current diagnosis for this admission?: Yes - Transfer Medications Home Medications: No Home Medications 06/06/19 Transfer Medications: Current Medications Acetaminophen (Tylenol 325 Mg Tablet) 650 mg PO Q4HP PRN PRN Reason: pain or temp greater than 101F Stop: 07/06/19 03:32 Last Admin: 06/09/19 14:09 Dose: 650 mg Documented by: Al Hydrox/Mg Hydrox/Simethicone (Maalox Plus Susp 30 Udcup) 30 ml PO Q4HP PRN PRN Reason: HEARTBURN Stop: 07/06/19 03:32 Last Admin: 06/08/19 13:00 Dose: 30 ml Documented by: Aspirin (Ecotrin 325 Mg Ec Tablet) 325 mg PO DAILY [facility] Stop: 07/10/19 09:59 Atorvastatin Calcium (Lipitor 10 Mg Tablet) 10 mg PO QHS [facility] Stop: 07/09/19 21:59 Carvedilol (Coreg 12.5 Mg Tablet) 12.5 mg PO DAILY [facility] Stop: 07/09/19 09:59 Last Admin: 06/09/19 11:53 Dose: 12.5 mg Documented by: Dextrose (Dextrose Inj 50% Syringe (25 Gm/50 Ml)) 25 gm IV PRN PRN; Protocol PRN Reason: PER PROTOCOL Stop: 07/06/19 12:46 Dextrose (Dextrose Inj 50% Syringe (25 Gm/50 Ml)) 12.5 gm IV PRN PRN; Protocol PRN Reason: FOR BG 50-69 IN ALERT PATIENT Stop: 07/06/19 12:46 Docusate Sodium (Colace 100 Mg Capsule) 100 mg PO DAILY [facility] Stop: 07/06/19 09:59 Last Admin: 06/09/19 11:52 Dose: 100 mg Documented by: Enoxaparin Sodium (Lovenox Inj 120 Mg/0.8 Ml Disp.Syrin) 110 mg SUBCUT Q12 [facility] Stop: 07/09/19 21:59 Glucagon (Glucagen Inj 1 Mg Vial) 1 mg IM PRN PRN; Protocol PRN Reason: Evaluate for BG < 70 Stop: 07/06/19 12:46 Glucose (Glutose 40% Gel 15 Gm Tube) 15 gm PO PRN PRN; Protocol PRN Reason: FOR BG 50-69 IN ALERT PATIENT Stop: 07/06/19 12:46 Glucose (Glutose 40% Gel 15 Gm Tube) 30 gm PO PRN PRN; Protocol PRN Reason: FOR BG < 50 IN ALERT PATIENT Stop: 07/06/19 12:46 Guaifenesin (Robitussin Syrup 200 Mg/10 Ml Ud Cup) 200 mg PO Q4HP PRN PRN Reason: COUGH Stop: 07/07/19 23:36 Hydralazine HCl (Apresoline Inj/Pf 20 Mg/1 Ml Sdv) 10 mg IV Q3HP PRN PRN Reason: Give For Sbp > [150] Stop: 07/09/19 06:54 Sodium Chloride (Nacl 0.9% 1000 Ml Iv Soln) 1,000 mls @ 150 mls/hr IV CONTINUOUS PRN PRN Reason: THIS MED IS NOT "PRN" Stop: 07/09/19 06:53 Last Infusion: 06/09/19 12:25 Dose: 150 mls/hr Documented by: Insulin Human Lispro (Humalog Insulin 100 Unit/1 Ml 3 Ml Vial) 0 - 12 unit SUBCUT ACHS [facility]; Protocol Stop: 07/06/19 15:59 Last Admin: 06/09/19 16:25 Dose: 2 unit Documented by: Lisinopril (Prinivil 10 Mg Tablet) 40 mg PO DAILY [facility] Stop: 07/09/19 09:59 Last Admin: 06/09/19 11:52 Dose: 40 mg Documented by: Magnesium Hydroxide (Milk Of Magnesia 30 Ml Udcup) 30 ml PO HSP PRN PRN Reason: FOR CONSTIPATION Stop: 07/06/19 03:32 Last Admin: 06/07/19 06:25 Dose: 30 ml Documented by: Morphine Sulfate (Morphine 10 Mg/Ml Inj) 1 mg IV Q6HP PRN PRN Reason: FOR PAIN Stop: 06/15/19 15:24 Last Admin: 06/09/19 14:08 Dose: 1 mg Documented by: Nitroglycerin (Nitrostat 0.4 Mg (1/150 Gr) Tabs 25/Bottle) 1 tab SL Q5MP PRN PRN Reason: CHEST PAIN Sodium Chloride (Saline Flush 2.5 Ml Monoject Prefil Syrin) 2.5 ml IV Q8 LUIGI Stop: 07/06/19 05:59 Last Admin: 06/09/19 14:00 Dose: Not Given Documented by: - Allergies Allergies/Adverse Reactions: gluten Allergy (Verified 06/06/19 08:31) Hospital Course Hospital Course: SONIYA LUEVANO is a 58 year old male with a past medical history of hypertension, obesity, polysubstance abuse, congestive heart failure with an ejection fraction of 35% from stress test October 2017. Patient presents with 24 hours of shortness of breath with exertion, orthopnea prompting him to check his blood pressure finding it to be in the 220 systolic range he comes to the emergency room and is found to have hypertensive urgency requiring nitrates, IV hydralazine, IV Lasix. He is pain-free and referred to the hospitalist for admission. Patient admits to intentional 100 pound weight loss over the last 18 months but has discontinued all medications with exception to homeopathic medications including vinegar. He denies knowledge of intentional stimulant, energy drinks or weight loss supplements. (1) Chest pain Likely due to ACS. On and Off Substernal pressure like chest pain, relieved with nitrates. Last chest pain 11 AM, currently chest pain free. Pt responds to SL nitrates, however he is very sensitive to nitrates. He was initially placed on nitro paste in ED and was complaining of severe headache. Troponins has been trending between 0.034, 0.036, 0.023, 0.018, 0.020, 0.029, 0.022 respectively. Due to the fact that patient has history of uncontrolled HTN, Abnormal EKG and DM he is high risk for CAD and Nuclear Stress was ordered which came back abnormal. No official report available, but as per my conversation with retail loss prevention specialist he has moderate reversible ischemia on the inferior and lateral slater, with LVED 30-35% 06/09/2019. 2D echo LVEF 55%. Continue antiplatelets, statins, beta-blockers, ADRI, therapeutic LMWH. I have contacted Dr Regis Patel at [facility] who has graciously accepted to transfer patient for a possible C. (2) Hypertensive urgency Improved. SBP [id number] Unfortunately patient developed DANYEL and had one SBP of 104 and was complaining of lightheadedness yesterday and his meds needed to be cut back. 06/08/2019. Was started on HCTZ 25 mg p.o. BID and Lasix p.o. daily unfortunately he developed DANYEL and they had to be stopped. 06/08/2019. IMDUR ER was a started yesterday with good results but had to be stopped as patient developed headache. It may not be a good idea to DC on nitrates because of history of noncompliance. DC IMDUR, Lasix and HCTZ. Will start on: Lisinopril p.o. once daily. Coreg 12.5 mg p.o. twice daily. Monitor vitals adjust dosage as needed. If DANYEL does not get better or creatinine goes up his ADRI needs to be stopped too. (3) DANYEL (acute kidney injury) Improving. Cretenine trending down to 1.72 from 2.06. Nonoliguric. Not sure if this is due to overcorrection of hypertensive emergency (lowest SBP 104) or medication induced such as Lasix, HCTZ and ADRI. Patient notified and counseled about DANYEL. DC HCTZ, Lasix. Cautious diuresis guided by volume status. Follow up BMP. (4) Obesity Patient has lost 100 pounds over the last 1 year, with diet and exercise. Encouraged and counseled on healthy weight loss. Continue diet and lifestyle modification. (5) Diabetes mellitus type 2, diet-controlled Diet controlled. A1c 6.4. Patient would like to continue controlling diabetes with diet and exercise. Does not want to be started on any medications at this point. Outpatient PCP follow-up. (6) Former smoker Encouraged abstinence. (7) Headache Nitrate induced. Avoid nitrates if possible. Denies any history of head trauma, denies any numbness tingling on focal neurological symptoms. No focal neurological abnormalities observed on physical examination. (8) Hyperkalemia Due to DANYEL. Hyperkalemia protocol. No EKG changes. BMP this p.m Physical Exam Vital Signs: Temp Pulse Resp BP Pulse Ox 97.4 F 71 20 116/59 L 97 06/09/19 15:39 06/09/19 15:39 06/09/19 15:39 06/09/19 15:39 06/09/19 15:39 Intake & Output 06/08/19 06/09/19 06/10/19 06:59 06:59 06:59 Intake Total 2318 720 293 Output Total 840 600 Balance 2318 -120 -307 Weight 110.6 kg 109.7 kg 109 kg General appearance: PRESENT: obese Respiratory exam: PRESENT: clear to auscultation rachell. ABSENT: rales, rhonchi, wheezes Cardiovascular exam: PRESENT: RRR. ABSENT: diastolic murmur, rubs, systolic murmur GI/Abdominal exam: PRESENT: normal bowel sounds, soft. ABSENT: distended, guarding, mass, organolmegaly, rebound, tenderness Extremities exam: PRESENT: full ROM. ABSENT: calf tenderness, clubbing, pedal edema Neurological exam: PRESENT: alert, awake, oriented to person, oriented to place, oriented to time, oriented to situation, CN II-XII grossly intact. ABSENT: motor sensory deficit Results Laboratory Results: 06/09/19 02:01 06/09/19 12:49 06/09/19 06/09/19 06/09/19 02:01 02:01 12:49 WBC 12.5 H RBC 5.66 H Hgb 17.0 Hct 51.5 H MCV 91 MCH 30.0 MCHC 32.9 RDW 14.5 H Plt Count 212 Seg Neutrophils % 76.7 Lymphocytes % 12.5 L Monocytes % 9.0 Eosinophils % 1.2 Basophils % 0.6 Absolute Neutrophils 9.6 H Absolute Lymphocytes 1.6 Absolute Monocytes 1.1 Absolute Eosinophils 0.2 Absolute Basophils 0.1 Sodium 134.2 L 133.7 L Potassium 5.3 H 4.2 D Chloride 89 L 92 L Carbon Dioxide 36 H 33 H Anion Gap 9 9 BUN 53 H 50 H Creatinine 2.06 H 1.72 H Est GFR ( Amer) 40 L 49 L Est GFR (Non-Af Amer) 33 L 41 L Glucose 190 H 135 H Calcium 9.6 9.2 Total Bilirubin 0.5 AST 25 ALT 24 Alkaline Phosphatase 90 Total Protein 7.0 Albumin 4.1 06/06/19 06/06/19 06/06/19 01:55 06:20 06:20 Creatine Kinase 105 CK-MB (CK-2) 4.44 Troponin I 0.034 0.036 NT-Pro-B Natriuret Pep 1880 H 06/06/19 06/06/19 06/06/19 12:21 12:21 18:05 Creatine Kinase 93 86 CK-MB (CK-2) 4.09 Troponin I 0.023 NT-Pro-B Natriuret Pep 06/06/19 06/08/19 06/08/19 18:05 14:10 14:10 Creatine Kinase 83 CK-MB (CK-2) 4.13 3.30 Troponin I 0.018 0.020 NT-Pro-B Natriuret Pep 06/08/19 06/08/19 06/09/19 19:58 19:58 02:01 Creatine Kinase 68 65 CK-MB (CK-2) 2.87 Troponin I 0.029 NT-Pro-B Natriuret Pep 06/09/19 02:01 Creatine Kinase CK-MB (CK-2) 2.90 Troponin I 0.022 NT-Pro-B Natriuret Pep Impressions: Chest X-Ray 06/06/19 00:00 IMPRESSION: Questionable right basilar pneumonia, likely in the right middle lobe.
--- NOTE | 2019-06-09 20:01 | DRAGON STRESS TEST REPORT ---
Intravenous Lexiscan Cardiolite stress test using single photon emmision computerized tomography. Date of procedure: 06/09/2019. Ordering Provider: . Patient's status: NCAT patient. Indication: Chest pain. Coronary risk factors: Age, hypertension, and diabetes mellitus. Resting EKG: Sinus Rhythm. T changes lateral leads. Stress EKG: No changes of ischemia. The patient had no chest pain or discomfort and there was no arrhythmias seen. Reason for termination: Protocol. Conclusions: Normal EKG and hemodynamic response to IV Lexiscan. Nuclear data: At rest the patient was given 14.56 millicuries of technetium 99m sestamibi injected intravenously. As per protocol rest non gated SPECT images were obtained. Subsequently the patient was given intravenous Lexiscan at a dose of 0.4 mg in 5 mL intravenously, followed by flush with normal saline. Subsequently the stress dose of 44.6 millicuries of technetium 99m sestamibi was injected intravenously. As per protocol stress gated images were obtained. Nuclear interpretation: Review of images showed that there was a perfusion defect of moderate intensity affecting the inferior and lateral slater in the stress images, which normalizes in the rest images. This area had normal thickening by gated study. Hence this is consistent with reversible ischemia. The rest of the segments of the myocardium had normal perfusion at rest and normal perfusion post IV Lexiscan stress. All segments of the myocardium had normal thickening by gated study. There is mild LV dilatation, with global hypokinesis. This is consistent with cardiomyopathy. T. I D. ratio was normal at 1.13. There is no transient ischemic dilatation of the left ventricle. Computer read rest, and stress left ventricular ejection fraction were 30 %, and 35 %, respectively. Conclusion: 1. There is scintigraphic evidence of Lexiscan induced myocardial ischemia of moderate severity involving the inferior and lateral slater.. 2. There is no scintigraphic evidence of myocardial infarction/scar. Recommendations: 1. Aggressive treatment medical treatment of coronary artery disease and cardiomyopathy. Check echo for LV ejection fraction correlation. Recommend cardiac catheterization. 2. Aggressive risk factor modification, and treating the underlying co- morbidities. The above findings were discussed with the ordering attending hospitalist physician. IVAN
[2019-06-09 20:09] VITALS: BP 155/92
[2019-06-09] MEDS ORDERED: ATORVASTATIN CALCIUM 10 MG TABLET PO SCH (22:00)
[2019-06-09] MEDS ORDERED: ENOXAPARIN SODIUM INJ 120 MG/0.8 ML DISP.SYRIN SUBCUT SCH (22:00)
[2019-06-10] MEDS ORDERED: ASPIRIN 325 MG TABLET, ENT COATED PO SCH (10:00)
== END 2019-06-09 20:27 | disposition short-term general hospital (02) | DRG 304 ==
LOC: ER 00:52 → EH 03:52 → 3N 13:22
PROVIDERS: ADMIT Internal Medicine; ATTEND Internal Medicine
DX: I16.0 Hypertensive urgency (principal); I50.43 Acute on chronic combined systolic (congestive) and diastolic (congestive) heart failure; N17.9 Acute kidney failure, unspecified; I11.0 Hypertensive heart disease with heart failure; E66.9 Obesity, unspecified; E11.9 Type 2 diabetes mellitus without complications; E78.5 Hyperlipidemia, unspecified; F19.10 Other psychoactive substance abuse, uncomplicated; I25.10 Atherosclerotic heart disease of native coronary artery without angina pectoris; G44.40 Drug-induced headache, not elsewhere classified, not intractable; T46.3X5A Adverse effect of coronary vasodilators, initial encounter; E87.5 Hyperkalemia; F32.9 Major depressive disorder, single episode, unspecified; E78.00 Pure hypercholesterolemia, unspecified; Z68.38 Body mass index [BMI] 38.0-38.9, adult; I25.2 Old myocardial infarction; Z87.891 Personal history of nicotine dependence; Z79.899 Other long term (current) drug therapy; Z79.4 Long term (current) use of insulin; Z91.02 Food additives allergy status; Z79.82 Long term (current) use of aspirin; Z91.14 Patient's other noncompliance with medication regimen; Z59.9 Problem related to housing and economic circumstances, unspecified
CPT/HCPCS: 36415; 71046; 78452; 80048; 80053; 80061; 80307; 82550; 82553; 82962; 83036; 83735; 83880; 84439; 84443; 84481; 84484; 85025; 85610; 85730; 93005; 93010; 93017; 93306; 99285; A9500; J1644; J1815; J1940; J2270; J2405; J2785; J2930; J3490; J7030; J7620; Q9969

== ENCOUNTER 2019-06-22 06:23 | Observation (INO) | payer SELFPAY ==
[2019-06-22] MEDS ORDERED: ASPIRIN 81 MG TABLET, CHEWABLE PO ONE (06:49)
[2019-06-22] MEDS ORDERED: NITROGLYCERIN 0.4 MG/TAB 25 TAB/BOTTLE SL PRN (06:50)
--- NOTE | 2019-06-22 06:54 | ER Document Report ---
ED Cardiac - General Chief Complaint: Chest Pain Stated Complaint: WEAKNESS Time Seen by Provider: 06/22/19 06:42 Mode of Arrival: Ambulatory Information source: Patient TRAVEL OUTSIDE OF THE [place] IN LAST 30 DAYS: No - HPI Notes: Patient presents complaining of left-sided chest pain. He states it radiates to his left arm. It is been constant since last night. Nothing is made it better or worse. Is been moderate in intensity. He states it does feel better than it did last night however. He states he is also been sweaty and has had his legs feel weak and has had a sensation like he may pass out. Patient denies any vomiting or diarrhea. He states he has had a mild cough recently. He states that he was hospitalized approximately 2 months ago and at that time they did a cardiac evaluation and found some "blockage". But he was told that it was not enough to require stenting. He states he was diagnosed at that time with high blood pressure and congestive heart failure. - Related Data Allergies/Adverse Reactions: gluten Allergy (Verified 06/06/19 08:31) Past Medical History - Social History Smoking Status: Current Every Day Smoker Frequency of alcohol use: None Drug Abuse: None Family History: Reviewed & Not Pertinent Patient has suicidal ideation: No Patient has homicidal ideation: No - Past Medical History Cardiac Medical History: Reports: Hx Heart Attack, Hx Hypercholesterolemia, Hx Hypertension - Untreated Endocrine Medical History: Reports: Hx Diabetes Mellitus Type 2, Hx Hyperthyroidism, Hx Hypothyroidism Renal/ Medical History: Denies: Hx Peritoneal Dialysis Psychiatric Medical History: Reports: Hx Depression Past Surgical History: Reports: Hx Orthopedic Surgery - R knee surgery - Immunizations Immunizations up to date: Yes Hx Diphtheria, Pertussis, Tetanus Vaccination: Yes Review of Systems - Review of Systems Constitutional: Malaise, Weakness Cardiovascular: Chest pain, Dizziness Respiratory: Cough, Short of breath -: Yes All other systems reviewed and negative Physical Exam - Vital signs Vitals: Resp Pulse Ox 23 H 96 06/22/19 06:36 06/22/19 06:36 Interpretation: Normal - General General appearance: Appears well, Alert - HEENT Head: Normocephalic, Atraumatic Eyes: Normal Pupils: PERRL - Respiratory Respiratory status: No respiratory distress Chest status: Nontender Breath sounds: Normal Chest palpation: Normal - Cardiovascular Rhythm: Regular Heart sounds: Normal auscultation Murmur: No - Abdominal Inspection: Normal Distension: No distension Bowel sounds: Normal Tenderness: Nontender Organomegaly: No organomegaly - Back Back: Normal, Nontender - Extremities General upper extremity: Normal inspection, Nontender, Normal color, Normal ROM, Normal temperature General lower extremity: Normal inspection, Nontender, Edema, Normal color, Normal ROM, Normal temperature, Normal weight bearing. No: Buzz's sign - Neurological Neuro grossly intact: Yes Cognition: Normal Orientation: AAOx4 Shaina Coma Scale Eye Opening: Spontaneous [place] Coma Scale Verbal: Oriented [place] Coma Scale Motor: Obeys Commands [place] Coma Scale Total: 15 Speech: Normal Motor strength normal: LUE, RUE, LLE, RLE Sensory: Normal - Psychological Associated symptoms: Normal affect, Normal mood - Skin Skin Temperature: Warm Skin Moisture: Dry Skin Color: Normal Course - Re-evaluation Re-evalutation: 06/22/19 09:01 Patient reevaluated. He states that his chest pain is better but not completely gone. It is a mild 1-2 on a scale 1-10 at this time. I did discuss the case with the hospitalist to accept the patient for admission. - Vital Signs Vital signs: Temp Pulse Resp BP Pulse Ox 88 30 H 172/97 H 96 06/22/19 08:22 06/22/19 08:17 06/22/19 08:17 06/22/19 08:17 - Laboratory Result Diagrams: 06/22/19 06:36 06/22/19 06:36 Laboratory results interpreted by me: 06/22/19 06/22/19 06:36 06:36 WBC 12.1 H RDW 14.3 H Absolute Neutrophils 8.9 H BUN 22 H Glucose 124 H Laboratory 06/22/19 06/22/19 06/22/19 06:36 06:36 06:36 WBC 12.1 H RBC 5.22 Hgb 15.8 Hct 47.1 MCV 90 MCH 30.3 MCHC 33.6 RDW 14.3 H Plt Count 219 Seg Neutrophils % 73.5 Lymphocytes % 18.2 Monocytes % 6.5 Eosinophils % 1.4 Basophils % 0.4 Absolute Neutrophils 8.9 H Absolute Lymphocytes 2.2 Absolute Monocytes 0.8 Absolute Eosinophils 0.2 Absolute Basophils 0.1 Sodium 137.5 Potassium 4.4 Chloride 102 Carbon Dioxide 27 Anion Gap 9 BUN 22 H Creatinine 1.10 Est GFR ( Amer) > 60 Est GFR (Non-Af Amer) > 60 Glucose 124 H Calcium 9.6 Total Bilirubin 0.4 Direct Bilirubin 0.3 Neonat Total Bilirubin Not Reportable Neonat Direct Bilirubin Not Reportable Neonat Indirect Bili Not Reportable AST 24 ALT 22 Alkaline Phosphatase 93 Troponin I 0.016 Total Protein 7.2 Albumin 4.3 - Diagnostic Test Radiology results interpreted by me: 06/22/19 09:01 Chest X-Ray 06/22/19 06:49 IMPRESSION: Cardiomegaly without acute abnormality of the lungs. No focal airspace opacity. - EKG Interpretation by Co EKG shows normal: Sinus rhythm Rate: Normal - 96 [place]/QRS: No: Right axis deviation, Left axis deviation Heart block present: 1st Degree Discharge - Discharge Clinical Impression: Chest pain Qualifiers: Chest pain type: unspecified Qualified Code(s): R07.9 - Chest pain, unspecified Condition: Stable Disposition: ADMITTED INPATIENT Admitting Provider: day Unit Admitted: Telemetry
[2019-06-22 07:04] LABS: ABSOLUTE BASOPHILS # (AUTO) 0.1 10^3/uL (0.0-0.2); ABSOLUTE EOSINOPHILS # (AUTO) 0.2 10^3/uL (0.0-0.6); ABSOLUTE LYMPHOCYTES (AUTO) 2.2 10^3/uL (0.5-4.7); ABSOLUTE MONOCYTES (AUTO) 0.8 10^3/uL (0.1-1.4); ABSOLUTE NEUT (AUTO) 8.9 10^3/uL (1.7-8.2); BASOPHILS % (AUTO) 0.4 % (0-2); EOSINOPHILS % (AUTO) 1.4 % (0-6); HEMATOCRIT 47.1 % (37.9-51.0); HEMOGLOBIN 15.8 g/dL (13.5-17.0); LYMPHOCYTES % (AUTO) 18.2 % (13-45); MEAN CORPUSCULAR HEMOGLOBIN 30.3 pg (27.0-33.4); MEAN CORPUSCULAR HGB CONC 33.6 g/dL (32.0-36.0); MEAN CORPUSCULAR VOLUME 90 fl (80-97); MONOCYTES % (AUTO) 6.5 % (3-13); PLATELET COUNT 219 10^3/uL (150-450); RED BLOOD COUNT 5.22 10^6/uL (4.35-5.55); RED CELL DISTRIBUTION WIDTH 14.3 % (11.5-14.0); SEGMENTED NEUTROPHILS % (AUTO) 73.5 % (42-78); TOTAL CELLS COUNTED % (AUTO) 100 %; WHITE BLOOD COUNT 12.1 10^3/uL (4.0-10.5)
[2019-06-22 07:12] LABS: ALBUMIN 4.3 g/dL (3.5-5.0); ALKALINE PHOSPHATASE 93 U/L (38-126); ANION GAP 9 (5-19); ASPARTATE AMINO TRANSFERASE 24 U/L (17-59); BILIRUBIN,DIRECT 0.3 mg/dL (0.0-0.4); BILIRUBIN,TOTAL 0.4 mg/dL (0.2-1.3); BLOOD UREA NITROGEN 22 mg/dL (7-20); CALCIUM 9.6 mg/dL (8.4-10.2); CARBON DIOXIDE 27 mmol/L (22-30); CHLORIDE 102 mmol/L (98-107); GLUCOSE 124 mg/dL (75-110); POTASSIUM 4.4 mmol/L (3.6-5.0); TOTAL PROTEIN 7.2 g/dL (6.3-8.2)
--- NOTE | 2019-06-22 07:47 | EKG REPORT ---
SEVERITY:- ABNORMAL ECG - SINUS RHYTHM FIRST DEGREE AV BLOCK NONSPECIFIC T ABNORMALITIES, LATERAL LEADS : Confirmed by: Akhil Asher MD 22-Jun-2019 07:47:10
[2019-06-22] MEDS ORDERED: ACETAMINOPHEN 325 MG TABLET ONE (08:26)
--- NOTE | 2019-06-22 08:41 | RADIOLOGY REPORT (SQ) ---
EXAM DESCRIPTION: CHEST 2 VIEWS COMPLETED DATE/TIME: 06/22/2019 7:16 am REASON FOR STUDY: cp COMPARISON: 06/06/2019 EXAM PARAMETERS: NUMBER OF VIEWS: two views TECHNIQUE: Digital Frontal and Lateral radiographic views of the chest acquired. RADIATION DOSE: NA LIMITATIONS: none FINDINGS: LUNGS AND PLEURA: No opacities, masses or pneumothorax. No pleural effusion. MEDIASTINUM AND HILAR STRUCTURES: No masses or contour abnormalities. HEART AND VASCULAR STRUCTURES: Cardiomegaly. BONES: Disc degenerative disease of the thoracic spine. HARDWARE: None in the chest. OTHER: No other significant finding. IMPRESSION: Cardiomegaly without acute abnormality of the lungs. No focal airspace opacity. TECHNICAL DOCUMENTATION: JOB ID: [id number] [employer]- All Rights Reserved Reading location - IP/workstation name: [email or web address]
[2019-06-22] MEDS ORDERED: PROMETHAZINE HCL INJ 25 MG/1 ML VIAL IV PRN (13:26)
[2019-06-22] MEDS ORDERED: MAGNESIUM HYDROXIDE SUSP 30 ML UDCUP PO PRN (13:26)
[2019-06-22] MEDS ORDERED: ZOLPIDEM TARTRATE 5 MG TABLET PO PRN (13:26)
[2019-06-22] MEDS ORDERED: ACETAMINOPHEN 325 MG TABLET PO PRN (13:26)
[2019-06-22] MEDS ORDERED: ONDANSETRON 4 MG TAB.RAPDIS PO PRN (13:26)
--- NOTE | 2019-06-22 13:40 | Progress Note Acknowledgement ---
Progress Note Acknowledgement Progess Note Acknowledgement: I, the undersigned member of the medical staff with appropriate privileges and with supervisory authority over [ PAC ], a dependent practice allied health professional, acknowledge that I have reviewed the progress notes entered on this patient, and in my professional judgment believe that the assessment made and/or any care evidenced was appropriate
--- NOTE | 2019-06-22 13:58 | PDOC H&P ---
History of Present Illness Admission Date/PCP: 06/22/19 09:41 06/22/2019 Patient complains of: Uncontrolled hypertension and chest pain. History of Present Illness: SONIYA LUEVANO is a 58 year old male admitted through the emergency room for uncontrolled hypertension and recurrent chest pain. Patient was just recently admitted to the hospital on 06/07/2019 that time had a very thorough complete cardiac work-up consisting of a stress test, cardiac consult, and even transferring to [place] for cardiac catheterization. Catheterization revealed multiple small vessel disease but no vessels that required stenting or bypass procedures. I have actually spoken to the interventional urologist by phone and he is fax me the catheterization report his explanation was that this was microvascular disease which was causing ischemia to the myocardium, resulting in pain. However he stated that this needed to be treated medically. He also stated that if patient had uncontrolled hypertension that during this time he would be more likely to have ischemic myocardium could cause the chest pain. Her graph patient has been noncompliant he did not get his nitroglycerin prescription filled because he says it causes headaches and he is supposed to be taking amlodipine 5 mg daily. In the emergency room the patient has had 2 troponins which were both normal and EKG that is unchanged from previous showing a first-degree AV block and nonspecific changes. Patient was interviewed in the emergency room he said it is been over an hour since he had any chest pain. Patient states it does make him lightheaded when he gets the pain as well as pain going into the left upper extremity. No nausea no vomiting For the last couple weeks patient has cut his cigarette consumption down to to 3 cigarettes/day from over a pack a day Past Medical History Cardiac Medical History: Reports: Myocardial Infarction, Hyperlipidema, Hypertension - Untreated Endocrine Medical History: Reports: Diabetes Mellitus Type 2, Hyperthyroidism, Hypothyroidism Psychiatric Medical History: Reports: Depression Past Surgical History Past Surgical History: Reports: Orthopedic Surgery - R knee surgery Social History Smoking Status: Current Every Day Smoker Frequency of Alcohol Use: None Hx Recreational Drug Use: Yes - SINCE Drugs: Marijuana Hx Prescription Drug Abuse: No - Advance Directive Resuscitation Status: Full Code Family History Family History: Reviewed & Not Pertinent Parental Family History Reviewed: No Children Family History Reviewed: No Sibling(s) Family History Reviewed.: No Medication/Allergy Home Medications: Amlodipine Besylate [Norvasc 5 mg Tablet] 5 mg PO DAILY 06/22/19 Allergies/Adverse Reactions: gluten Allergy (Verified 06/06/19 08:31) Physical Exam Vital Signs: Temp Pulse Resp BP Pulse Ox 97.7 F 70 18 169/98 H 99 06/22/19 13:26 06/22/19 13:26 06/22/19 13:26 06/22/19 13:26 06/22/19 13:26 Intake & Output 06/21/19 06/22/19 06/23/19 06:59 06:59 06:59 Weight 108.9 kg 108.912 kg General appearance: PRESENT: no acute distress Respiratory exam: PRESENT: clear to auscultation rachell. ABSENT: rales, rhonchi, wheezes Cardiovascular exam: PRESENT: RRR. ABSENT: diastolic murmur, rubs, systolic murmur GI/Abdominal exam: PRESENT: normal bowel sounds, soft. ABSENT: distended, guarding, mass, organolmegaly, rebound, tenderness Neurological exam: PRESENT: alert, awake, oriented to person, oriented to place, oriented to time, oriented to situation, CN II-XII grossly intact. ABSENT: motor sensory deficit Psychiatric exam: PRESENT: appropriate affect, normal mood. ABSENT: homicidal ideation, suicidal ideation Results Laboratory Results: 06/22/19 06:36 06/22/19 06:36 06/22/19 06/22/19 06:36 06:36 WBC 12.1 H RBC 5.22 Hgb 15.8 Hct 47.1 MCV 90 MCH 30.3 MCHC 33.6 RDW 14.3 H Plt Count 219 Seg Neutrophils % 73.5 Lymphocytes % 18.2 Monocytes % 6.5 Eosinophils % 1.4 Basophils % 0.4 Absolute Neutrophils 8.9 H Absolute Lymphocytes 2.2 Absolute Monocytes 0.8 Absolute Eosinophils 0.2 Absolute Basophils 0.1 Sodium 137.5 Potassium 4.4 Chloride 102 Carbon Dioxide 27 Anion Gap 9 BUN 22 H Creatinine 1.10 Est GFR ( Amer) > 60 Est GFR (Non-Af Amer) > 60 Glucose 124 H Calcium 9.6 Total Bilirubin 0.4 AST 24 Alkaline Phosphatase 93 Total Protein 7.2 Albumin 4.3 06/22/19 06/22/19 06:36 10:15 Troponin I 0.016 < 0.012 Impressions: Chest X-Ray 06/22/19 06:49 IMPRESSION: Cardiomegaly without acute abnormality of the lungs. No focal airspace opacity. Assessment and Plan - Diagnosis (1) Chest pain Qualifiers: Chest pain type: unspecified Qualified Code(s): R07.9 - Chest pain, unspecified Is this a current diagnosis for this admission?: Yes Plan: Dr. Coronado and the drier feeder who performed the catheterization 2 weeks ago feel that this chest pain needs to be treated medically not surgically. Catheterization did not show any vessels that required stenting or bypass. It is thought that the patient's uncontrolled hypertension is causing ischemia to the myocardium as opposed to spasm and/or vessel stenosis. Patient was supposed to see a primary care provider today for his first visit si nce the discharge from the hospital. Patient did not get his nitroglycerin filled because it causes him headaches. (2) Malignant hypertensive urgency Is this a current diagnosis for this admission?: Yes Plan: Patient's Norvasc will be increased to 10 mg daily up from 5, vital signs will be taken every 4 hours to monitor blood pressure (3) Morbid obesity Is this a current diagnosis for this admission?: Yes Plan: Patient's diet and weight will be monitored while in the hospital (4) Noncompliance Is this a current diagnosis for this admission?: Yes Plan: Patient will be encouraged to take all of his medication and get his nitro prescription filled at time of discharge well as any new prescriptions written today or tomorrow (5) NATHAN (obstructive sleep apnea) Is this a current diagnosis for this admission?: Yes Plan: Patient's oxygen levels will be monitored. Patient does not use CPAP while at home (6) Tobacco dependency Is this a current diagnosis for this admission?: Yes Plan: Patient is decreasing his tobacco dependency the last couple of weeks NicoDerm patches will be offered if needed - Time Time Spent with patient: 35 or more minutes
[2019-06-22] MEDS ORDERED: HYDRALAZINE HCL INJ/PF 20 MG/1 ML SDV IV PRN (14:47)
[2019-06-22] MEDS: AMLODIPINE BESYLATE 10 MG TABLET PO SCH (15:11)
[2019-06-22] MEDS: ENOXAPARIN SODIUM INJ 40 MG/0.4 ML DISP.SYRIN SUBCUT SCH (15:14)
[2019-06-22 15:29] LABS: INTERNATIONAL RATION (INR) 0.95; PROTHROMBIN TIME 12.7 SEC (11.4-15.4)
[2019-06-22 16:00] LABS: CREATINE KINASE MB 1.66 ng/mL (<4.55)
[2019-06-22 16:09] LABS: TROPONIN I < 0.012 ng/mL
[2019-06-22 21:39] LABS: APPEARANCE,URINE CLEAR; BILIRUBIN,URINE NEGATIVE (NEGATIVE); COLOR,URINE COLORLESS; GLUCOSE, URINE NEGATIVE (NEGATIVE); KETONES,URINE NEGATIVE (NEGATIVE); LEUKOCYTE ESTERASE,URINE NEGATIVE (NEGATIVE); NITRITE,URINE NEGATIVE (NEGATIVE); PROTEIN,URINE NEGATIVE (NEGATIVE); URINE SPECIFIC GRAVITY 1.003; UROBILINOGEN,URINE NEGATIVE mg/dL (<2.0)
[2019-06-22 21:50] LABS: CREATINE KINASE MB 1.78 ng/mL (<4.55); TROPONIN I 0.014 ng/mL
[2019-06-22] MEDS: FAMOTIDINE 20 MG TABLET PO SCH (21:55)
[2019-06-22 22:00] LABS: ADD MANUAL MICROSCOPIC YES
[2019-06-23 04:17] LABS: ABSOLUTE BASOPHILS # (AUTO) 0.1 10^3/uL (0.0-0.2); ABSOLUTE EOSINOPHILS # (AUTO) 0.3 10^3/uL (0.0-0.6); ABSOLUTE LYMPHOCYTES (AUTO) 2.1 10^3/uL (0.5-4.7); ABSOLUTE MONOCYTES (AUTO) 0.7 10^3/uL (0.1-1.4); ABSOLUTE NEUT (AUTO) 5.5 10^3/uL (1.7-8.2); BASOPHILS % (AUTO) 1.3 % (0-2); EOSINOPHILS % (AUTO) 3.1 % (0-6); HEMATOCRIT 45.7 % (37.9-51.0); HEMOGLOBIN 15.4 g/dL (13.5-17.0); LYMPHOCYTES % (AUTO) 24.4 % (13-45); MEAN CORPUSCULAR HEMOGLOBIN 30.3 pg (27.0-33.4); MEAN CORPUSCULAR HGB CONC 33.7 g/dL (32.0-36.0); MEAN CORPUSCULAR VOLUME 90 fl (80-97); MONOCYTES % (AUTO) 7.5 % (3-13); PLATELET COUNT 198 10^3/uL (150-450); RED BLOOD COUNT 5.09 10^6/uL (4.35-5.55); RED CELL DISTRIBUTION WIDTH 14.1 % (11.5-14.0); SEGMENTED NEUTROPHILS % (AUTO) 63.7 % (42-78); TOTAL CELLS COUNTED % (AUTO) 100 %; WHITE BLOOD COUNT 8.7 10^3/uL (4.0-10.5)
[2019-06-23 04:42] LABS: ALBUMIN 3.9 g/dL (3.5-5.0); ALKALINE PHOSPHATASE 69 U/L (38-126); ANION GAP 8 (5-19); ASPARTATE AMINO TRANSFERASE 22 U/L (17-59); BILIRUBIN,DIRECT 0.3 mg/dL (0.0-0.4); BILIRUBIN,TOTAL 0.6 mg/dL (0.2-1.3); BLOOD UREA NITROGEN 21 mg/dL (7-20); CALCIUM 9.3 mg/dL (8.4-10.2); CARBON DIOXIDE 24 mmol/L (22-30); CHLORIDE 106 mmol/L (98-107); GLUCOSE 109 mg/dL (75-110); POTASSIUM 4.6 mmol/L (3.6-5.0); TOTAL PROTEIN 6.7 g/dL (6.3-8.2)
[2019-06-23 04:50] LABS: CREATINE KINASE MB 1.82 ng/mL (<4.55); TROPONIN I 0.017 ng/mL
[2019-06-23 09:59] LABS: CREATINE KINASE MB 1.76 ng/mL (<4.55); TROPONIN I 0.016 ng/mL
[2019-06-23] MEDS ORDERED: DOCUSATE SODIUM 100 MG CAPSULE PO SCH (10:00)
--- NOTE | 2019-06-23 10:30 | PDOC DISCHARGE SUMMARY ---
General - Admit/Disc Date/PCP Admission Date/Primary Care Provider: 06/22/19 09:41 Discharge Date: 06/23/19 - Discharge Diagnosis (1) Chest pain Is this a current diagnosis for this admission?: Yes Summary: Dr. Coronado and the aircraft servicer who performed the catheterization 2 weeks ago feel that this chest pain needs to be treated medically not surgically. Catheterization did not show any vessels that required stenting or bypass. It is thought that the patient's uncontrolled hypertension is causing ischemia to the myocardium as opposed to spasm and/or vessel stenosis. Patient was supposed to see a primary care provider today for his first visit since the discharge from the hospital. Patient did not get his nitroglycerin filled because it causes him headaches. 06/23/[id number]-uffy-old male with history of coronary artery disease recent cardiac cath not a candidate for stents admitted for chest pains since the admission from the ER denies any chest pains. Cardiac work-up was negative so far. Patient is expressing desire to go home and follow-up with his primary card iologist in few days. I am going to give a prescription for his aspirin, atorvastatin and for blood pressure I am going to give him 10 mg of amlodipine daily. Patient is agreed to go home today. Strongly explained to him that if the chest pain recurs he needs to come to the emergency room [facility]. (2) Malignant hypertensive urgency Is this a current diagnosis for this admission?: Yes Summary: 06/23/2019-patient came in with very high blood pressures he is on amlodipine 5 mg p.o. daily at home and it was increased to 10 mg p.o. daily blood pressure this morning is 148/68. Stable. I gave the prescription for amlodipine 10 mg daily for 1 month and strongly advised him to follow-up with the aircraft servicer Dr. Bynum in few days time. (3) Obesity Is this a current diagnosis for this admission?: No Summary: 06/23/2019-patient BMI is more than 36 diet exercise weight loss lifestyle modifications discussed with the patient. (4) Diabetes mellitus type II, uncontrolled Is this a current diagnosis for this admission?: No Summary: 06/23/2019-patient has history of type 2 diabetes mellitus latest blood sugar is 109 patient was advised about diet and complex medications. - Additional Information Resuscitation Status: Full Code Discharge Diet: Cardiac Discharge Activity: Activity As Tolerated Prescriptions: Amlodipine Besylate [Norvasc 10 mg Tablet] 10 mg PO DAILY #30 tablet Aspirin [Aspir-Janell] 325 mg PO DAILY #30 tab Aspirin [Aspirin 81 mg Chewable Tablet] 81 mg PO DAILY #1 pkg Atorvastatin Calcium [Lipitor 10 mg Tablet] 10 mg PO QHS #30 tablet Nitroglycerin [Nitrostat 0.4 mg (1/150 Gr) Tabs 25/Bottle] 1 tab SL Q5MP PRN #60 bottle PRN Reason: Home Medications: Amlodipine Besylate [Norvasc 10 mg Tablet] 10 mg PO DAILY #30 tablet 06/23/19 Aspirin [Aspir-Janell] 325 mg PO DAILY #30 tab 06/23/19 Aspirin [Aspirin 81 mg Chewable Tablet] 81 mg PO DAILY #1 pkg 06/23/19 Atorvastatin Calcium [Lipitor 10 mg Tablet] 10 mg PO QHS #30 tablet 06/23/19 Nitroglycerin [Nitrostat 0.4 mg (1/150 Gr) Tabs 25/Bottle] 1 tab SL Q5MP PRN #60 bottle 06/23/19 History of Present Illness History of Present Illness: SONIYA LUEVANO is a [address] Coronado and the aircraft servicer who performed the catheterization 2 weeks ago feel that this chest pain needs to be treated medically not surgically. Cat heterization did not show any vessels that required stenting or bypass. It is thought that the patient's uncontrolled hypertension is causing ischemia to the myocardium as opposed to spasm and/or vessel stenosis. Patient was supposed to see a primary care provider today for his first visit since the discharge from the hospital. Patient did not get his nitroglycerin filled because it causes him headaches. Hospital Course Hospital Course: 58-year-old male with history of coronary artery disease and multiple risk factors with recent history of cardiac cath and not a candidate for stent placement admitted with chest pains. Also admitted with hypertensive emergency chest pain is resolved blood pressures are much better he is going home today. Physical Exam Vital Signs: Temp Pulse Resp BP Pulse Ox 98.3 F 70 18 146/83 H 99 06/23/19 07:36 06/23/19 07:36 06/23/19 07:36 06/23/19 07:36 06/23/19 07:36 Intake & Output 06/22/19 06/23/19 06/24/19 06:59 06:59 06:59 Intake Total 1080 Output Total 970 Balance 110 Weight 108.9 kg 109.9 kg General appearance: PRESENT: no acute distress, morbidly obese Head exam: PRESENT: atraumatic Eye exam: PRESENT: PERRLA Mouth exam: PRESENT: neck supple Neck exam: ABSENT: carotid bruit, JVD, lymphadenopathy, thyromegaly Respiratory exam: PRESENT: clear to auscultation rachell. ABSENT: rales, rhonchi, wheezes Cardiovascular exam: PRESENT: RRR. ABSENT: diastolic murmur, rubs, systolic murmur GI/Abdominal exam: PRESENT: normal bowel sounds, soft. ABSENT: distended, guarding, mass, organolmegaly, rebound, tenderness Rectal exam: PRESENT: deferred Extremities exam: PRESENT: full ROM. ABSENT: calf tenderness, clubbing, pedal edema Neurological exam: PRESENT: alert, awake, oriented to person, oriented to place, oriented to time, oriented to situation, CN II-XII grossly intact. ABSENT: motor sensory deficit Psychiatric exam: PRESENT: appropriate affect, normal mood. ABSENT: homicidal ideation, suicidal ideation Results Laboratory Results: 06/23/19 03:29 06/23/19 03:29 06/22/19 06/23/19 06/23/19 21:24 03:29 03:29 WBC 8.7 RBC 5.09 Hgb 15.4 Hct 45.7 MCV 90 MCH 30.3 MCHC 33.7 RDW 14.1 H Plt Count 198 Seg Neutrophils % 63.7 Lymphocytes % 24.4 Monocytes % 7.5 Eosinophils % 3.1 Basophils % 1.3 Absolute Neutrophils 5.5 Absolute Lymphocytes 2.1 Absolute Monocytes 0.7 Absolute Eosinophils 0.3 Absolute Basophils 0.1 Sodium 137.7 Potassium 4.6 Chloride 106 Carbon Dioxide 24 Anion Gap 8 BUN 21 H Creatinine 1.01 Est GFR ( Amer) > 60 Est GFR (Non-Af Amer) > 60 Glucose 109 Calcium 9.3 Magnesium 2.3 Total Bilirubin 0.6 AST 22 Alkaline Phosphatase 69 Total Protein 6.7 Albumin 3.9 Urine Color COLORLESS Urine Appearance CLEAR Urine pH 6.0 Ur Specific [place] 1.003 Urine Protein NEGATIVE Urine Glucose (UA) NEGATIVE Urine Ketones NEGATIVE Urine Blood NEGATIVE Urine Nitrite NEGATIVE Ur Leukocyte Esterase NEGATIVE 06/22/19 06/22/19 06/22/19 06:36 10:15 14:38 Creatine Kinase CK-MB (CK-2) 1.66 Troponin I 0.016 < 0.012 < 0.012 06/22/19 06/23/19 06/23/19 21:12 03:29 09:20 Creatine Kinase 52 L CK-MB (CK-2) 1.78 1.82 Troponin I 0.014 0.017 06/23/19 09:20 Creatine Kinase CK-MB (CK-2) 1.76 Troponin I 0.016 Impressions: Chest X-Ray 06/22/19 06:49 IMPRESSION: Cardiomegaly without acute abnormality of the lungs. No focal airspace opacity. Qualifiers - * PATIENT BEING DISCHARGED WITH ANY OF THE FOLLOWING DIAGNOSIS: No Acute Heart Failure - Is this a Heart Failure Patient?: No
[2019-06-23] MEDS: AMLODIPINE BESYLATE 10 MG TABLET PO SCH (10:34)
[2019-06-23] MEDS: FAMOTIDINE 20 MG TABLET PO SCH (10:34)
[2019-06-23 10:41] VITALS: BP 148/68
[2019-06-23] MEDS: ENOXAPARIN SODIUM INJ 40 MG/0.4 ML DISP.SYRIN SUBCUT SCH (10:49)
== END 2019-06-23 11:30 | disposition home or self-care (01) ==
LOC: ER 06:23 → INTOOBSV 09:41 → EH 09:41 → 5 13:03
PROVIDERS: ADMIT Internal Medicine; ATTEND Internal Medicine
DX: R07.9 Chest pain, unspecified (principal); I25.10 Atherosclerotic heart disease of native coronary artery without angina pectoris; I16.0 Hypertensive urgency; E11.65 Type 2 diabetes mellitus with hyperglycemia; E66.01 Morbid (severe) obesity due to excess calories; I73.9 Peripheral vascular disease, unspecified; G47.33 Obstructive sleep apnea (adult) (pediatric); R05 Cough; R53.1 Weakness; R53.81 Other malaise; I44.0 Atrioventricular block, first degree; F17.210 Nicotine dependence, cigarettes, uncomplicated; I25.2 Old myocardial infarction; Z68.36 Body mass index [BMI] 36.0-36.9, adult; Z91.14 Patient's other noncompliance with medication regimen
CPT/HCPCS: 93005; 99285; 36415 ×2; 82553 ×2; 82962; 82550; 83735; 85025 ×2; 85610; 85730; 80053 ×2; 81001; 84484 ×2; 71046; 93010; G0378 ×2; J1650

== ENCOUNTER → 2019-07-24 | Outpatient (CLI) | payer OTHER ==
--- NOTE | 2019-07-26 22:10 | XCELERA REPORT ---
[address] [address] Transthoracic Echocardiogram Report Name: SONIYA LUEVANO Age: 58 yrs Gender: Male : 1960 Patient Status: Outpatient Patient Location: [facility] Study Date: 07/24/2019 10:53 AM Height: 68 in Weight: 238 lb BSA: 2.2 m2 Procedure: A two-dimensional transthoracic echocardiogram with color flow and Doppler was performed. The study was technically difficult with many images being suboptimal in quality. Reason For Study: THORACIC AORTIC ECTASIA History: THORACIC AORTIC ECTASIA. Ordering Physician: AMERICA COUCH Performed By: Daria Husain Interpretation Summary The left ventricle is normal in size. There is normal left ventricular wall thickness. LV EF is 60% The left ventricular ejection fraction is within normal limits. Doppler measurements suggest impaired left ventricular relaxation, which is associated with grade I/IV or mild diastolic dysfunction The left ventricular wall motion is normal. No ASD ,VSD . or PFO seen. There is no thrombus. The right ventricle is not well visualized secondary to technical limitations The right atrium is normal. The left atrium is mildly dilated. There is no evidence of mitral valve prolapse. There is no vegetation seen on the mitral valve. There is no mitral valve stenosis. There is a trace amount of mitral regurgitation There is no aortic valvular vegetation. There is no aortic valve stenosis There is aortic sclerosis without aortic stenosis. No aortic regurgitation is present. There is no tricuspid stenosis. There is a trace amount of tricuspid regurgitation Unable to calculate RVSP due to insufficient TR jet. There is no pulmonic valvular stenosis. There is no pulmonic valvular regurgitation. The aortic root is not well visualized but is probably normal size. Ascending aorta not seen. The inferior vena cava appeared normal and decreased > 50% with respiration (RAP 5-10 mmHg) There is no pericardial effusion. MMode/2D Measurements & Calculations RVDd: 4.0 cm LVIDd: 5.6 cm FS: 35.2 % Ao root diam: 3.6 cm IVSd: 0.95 cm LVIDs: 3.6 cm EDV(Teich): Ao root area: LVPWd: 1.4 cm 154.3 ml 10.0 cm2 ESV(Teich): 55.7 ml EF(Teich): 63.9 % EDV(MOD-sp4): SV(MOD-sp4): 174.5 ml 75.2 ml ESV(MOD-sp4): 99.3 ml EF(MOD-sp4): 43.1 % Doppler Measurements & Calculations MV E max sharmila: MV dec slope: Ao V2 max: LV V1 max P.0 cm/sec 96.0 cm/sec 3.2 mmHg MV A max sharmila: 354.5 cm/sec2 Ao max PG: LV V1 max: 82.4 cm/sec MV dec time: 0.12 sec 3.7 mmHg 89.9 cm/sec MV E/A: 0.53 PA V2 max: 82.7 cm/sec PA max P.7 mmHg Left Ventricle The left ventricle is normal in size. There is normal left ventricular wall thickness. LV EF is 60%. The left ventricular ejection fraction is within normal limits. Doppler measurements suggest impaired left ventricular relaxation, which is associated with grade I/IV or mild diastolic dysfunction. The left ventricular wall motion is normal. No ASD ,VSD . or PFO seen. There is no thrombus. Right Ventricle The right ventricle is not well visualized secondary to technical limitations. Atria The right atrium is normal. The left atrium is mildly dilated. Mitral Valve There is no evidence of mitral valve prolapse. There is no vegetation seen on the mitral valve. There is no mitral valve stenosis. There is a trace amount of mitral regurgitation. Aortic Valve There is no aortic valvular vegetation. There is no aortic valve stenosis. There is aortic sclerosis without aortic stenosis. No aortic regurgitation is present. Tricuspid Valve There is no tricuspid stenosis. There is a trace amount of tricuspid regurgitation. Unable to calculate RVSP due to insufficient TR jet. Pulmonic Valve There is no pulmonic valvular stenosis. There is no pulmonic valvular regurgitation. Great Vessels The aortic root is not well visualized but is probably normal size. Ascending aorta not seen. The inferior vena cava appeared normal and decreased > 50% with respiration (RAP 5-10 mmHg). Effusions There is no pericardial effusion. : AMERICA COUCH Lakshmi
== END ==
LOC: SP 10:29
PROVIDERS: ATTEND Internal Medicine
DX: I77.810 Thoracic aortic ectasia (principal); I25.10 Atherosclerotic heart disease of native coronary artery without angina pectoris; E11.9 Type 2 diabetes mellitus without complications; E78.5 Hyperlipidemia, unspecified; I10 Essential (primary) hypertension
CPT/HCPCS: 93306

== ENCOUNTER → 2019-08-16 | Outpatient (CLI) | payer OTHER ==
[2019-08-16 10:17] LABS: CHOLESTEROL 202.95 mg/dL (0-200); TRIGLYCERIDES 158 mg/dL (<150)
[2019-08-16 10:28] LABS: DIRECT LDL 147 mg/dL (<100)
[2019-08-16 10:52] LABS: VLDL CHOLESTEROL 31.6 mg/dL (10-31)
== END ==
LOC: CCC 09:14
DX: E78.5 Hyperlipidemia, unspecified (principal); I25.10 Atherosclerotic heart disease of native coronary artery without angina pectoris; N40.0 Benign prostatic hyperplasia without lower urinary tract symptoms; Z83.3 Family history of diabetes mellitus
CPT/HCPCS: 36415; 80061; 83036; 84153; 84443

== ENCOUNTER → 2020-06-20 | Outpatient (CLI) | payer OTHER | LOC: CCC 13:50 | PROVIDERS: ATTEND Internal Medicine | DX: E03.9 Hypothyroidism, unspecified (principal) | CPT/HCPCS: 36415; 84443 ==

== ENCOUNTER → 2020-07-30 | Outpatient (CLI) | payer OTHER ==
[2020-07-30 10:18] LABS: APPEARANCE,URINE CLEAR; BILIRUBIN,URINE NEGATIVE (NEGATIVE); COLOR,URINE YELLOW; GLUCOSE, URINE NEGATIVE (NEGATIVE); KETONES,URINE NEGATIVE (NEGATIVE); LEUKOCYTE ESTERASE,URINE NEGATIVE (NEGATIVE); NITRITE,URINE NEGATIVE (NEGATIVE); PROTEIN,URINE 30 mg/dL (NEGATIVE); URINE SPECIFIC GRAVITY 1.015; UROBILINOGEN,URINE NEGATIVE mg/dL (<2.0)
[2020-07-30 10:29] LABS: ANION GAP 5 (5-19); BLOOD UREA NITROGEN 14 mg/dL (7-20); CALCIUM 9.7 mg/dL (8.4-10.2); CARBON DIOXIDE 28 mmol/L (22-30); CHLORIDE 108 mmol/L (98-107); GLUCOSE 114 mg/dL (75-110); POTASSIUM 5.4 mmol/L (3.6-5.0)
== END ==
LOC: CCC 08:58
PROVIDERS: ATTEND Internal Medicine
DX: E11.9 Type 2 diabetes mellitus without complications (principal); E03.9 Hypothyroidism, unspecified; R35.0 Frequency of micturition; R35.1 Nocturia
CPT/HCPCS: 36415; 80048; 81001; 83036; 84153; 84443; 87086; 87088

== ENCOUNTER 2020-11-05 14:26 | Emergency (ER) | payer SELFPAY ==
--- NOTE | 2020-11-05 14:50 | ER Document Report ---
ED Extremity Problem, Upper - General Chief Complaint: Shoulder Injury Stated Complaint: FALL/ SHOULDER PAIN Time Seen by Provider: 11/05/20 14:42 Primary Care Provider: [facility],DAKSHA [NO LOCAL MD] - Follow up as needed VALENTINA LOZANO DO [ACTIVE STAFF] - Follow up as needed Mode of Arrival: Ambulatory Information source: Patient Notes: 60-year-old male presented to ED for complaint of pain to the right shoulder. He states he fell down about 8 stairs last . He states he did have pain in multiple areas but now the only thing that it remains hurting is the right shoulder. He states he does smoke a pack a day does not drink or use any illicit drugs. Constitutional: Negative for fever. HENT: Negative for sore throat. Eyes: Negative for visual changes. Cardiovascular: Negative for chest pain. Respiratory: Negative for shortness of breath. Gastrointestinal: Negative for abdominal pain, vomiting or diarrhea. Genitourinary: Negative for dysuria. Musculoskeletal: Complains of pain to the right wrist elbow shoulder. States he fell on and has had pain and decreased strength in his arm since then. States the reason he came to the emergency room is that he is not able to do full range of motion to his shoulder and sometimes things just fall out of his hand. Skin: Negative for rash. Neurological: Negative for headaches, weakness or numbness. 10 point ROS negative except as marked above and in HPI. VITAL SIGNS: Within normal limits. GENERAL: No acute distress, non-toxic appearance. HEAD: Normal with no signs of head trauma. EYES: PERRLA, EOMI, conjunctiva normal, no discharge. EARS: Hearing grossly intact. NOSE: Normal. THROAT: Oropharynx is normal. NECK: Normal range of motion, no tenderness, supple, no lymphadenopathy, No adenopathy, no JVD. CHEST: Clear breath sounds bilaterally. No wheezes, rales, or rhonchi. CARDIAC: Regular rate and rhythm. S1 and S2, without murmurs, gallops, or rubs. VASCULAR: No Edema. Peripheral pulses normal and equal in all extremities. ABDOMEN: Normal and soft with no tenderness, no masses or pulsatile masses. GASTROINTESTINAL: Bowel sounds normal GENITOURINARY: Normal, No tenderness LYMPATHTIC: No lymphadenopathy noted. MUSCULOSKELETAL: Decreased range of motion to the right shoulder since fall. 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 No focal sensory or strength deficits. Speech normal. Follows commands appropriately. PSYCHIATRIC: Normal Affect, judgement and mood. SKIN: Normal appearance with no rashes or lesions. TRAVEL OUTSIDE OF THE [place] IN LAST 30 DAYS: No - HPI Patient complains to provider of: Right, Wrist, Shoulder Onset: Last week Recent injury: Yes Where: Neighbor's, Outdoors Quality of pain: Achy, Burning, Sharp Severity of pain: Severe Pain Level: 5 Context: Fall Associated symptoms: None Exacerbated by: Movement, Exertion Relieved by: Rest, Positioning Similar symptoms previously: No Recently seen / treated by doctor: No - Related Data Allergies/Adverse Reactions: gluten Allergy (Verified 06/06/19 08:31) Past Medical History - General Information source: Patient - Social History Smoking Status: Current Every Day Smoker Cigarette use (# per day): Yes - ppd Smoking Education Provided: Yes - 2 min Frequency of alcohol use: None Drug Abuse: None Lives with: Friend Family History: Reviewed & Not Pertinent Patient has suicidal ideation: No Patient has homicidal ideation: No - Past Medical History Cardiac Medical History: Reports: Hx Congestive Heart Failure, Hx Heart Attack, Hx Hypercholesterolemia, Hx Hypertension - Untreated Pulmonary Medical History: Reports: None EENT Medical History: Reports: None Neurological Medical History: Reports: None Endocrine Medical History: Reports: Hx Diabetes Mellitus Type 2, Hx Hypothyroidism Renal/ Medical History: Reports: None Malignancy Medical History: Reports None GI Medical History: Reports: Hx Colonoscopy Musculoskeletal Medical History: Reports Hx Arthritis, Reports Hx Musculoskeletal Deformity, Reports Hx Musculoskeletal Trauma Skin Medical History: Reports None Psychiatric Medical History: Reports: None Traumatic Medical History: Reports: Hx Fractures - Left leg right leg ribs both hands left arm Infectious Medical History: Reports: None Past Surgical History: Reports: Hx Inguinal Hernia - Lateral, Hx Orthopedic Surgery - R knee surgery - Immunizations Immunizations up to date: Yes Hx Diphtheria, Pertussis, Tetanus Vaccination: Yes History of Pneumococcal Vaccine: No History of Influenza Vaccine for 08/2019 - 01/2020 Season: No Physical Exam - Vital signs Vitals: Temp Pulse Resp BP Pulse Ox 98.1 F 96 18 157/83 H 96 11/04/20 14:36 11/04/20 14:36 11/04/20 14:36 11/04/20 14:36 11/04/20 14:36 Course - Re-evaluation Re-evalutation: 11/05/20 16:00 Discussed x-rays with Dr. Melton and discuss treatment. He agreed that a volar splint was sling would be appropriate for this distal radial fracture. I discussed the x-rays with the patient and discussed treatment plan of Tylenol Motrin elevation ice splint and sling. I did offer narcotics and he refused stated he does not like to take narcotics and does not want a prescription of them at this time. She was instructed please to call Dr. Lozano tomorrow to schedule follow-up appointment and he has verbalized understanding and agreement with this plan. - Vital Signs Vital signs: Temp Pulse Resp BP Pulse Ox 97.9 F 92 18 148/80 H 97 11/05/20 16:01 11/05/20 16:01 11/05/20 16:01 11/05/20 16:01 11/05/20 16:01 - Laboratory Results Critical Laboratory Results Reviewed: No Critical Results - Radiology Results Critical Radiology Results Reviewed: No Critical Results Procedures - Immobilization Right Shoulder Time completed: 16:00 Immobilizer type: Volar splint, Sling Performed by: PCT Post-Proc Neuro Vasc Exam: Normal Alignment checked and good: Yes Discharge - Discharge Clinical Impression: Arthritis of right shoulder region, Arthritis of right elbow Fracture of radius, distal, right, closed Qualifiers: Encounter type: initial encounter Fracture morphology: other intra-articular Qualified Code(s): S52.571A - Other intraarticular fracture of lower end of right radius, initial encounter for closed fracture Injury of shoulder, right Qualifiers: Encounter type: initial encounter Qualified Code(s): S49.91XA - Unspecified injury of right shoulder and upper arm, initial encounter Injury of right elbow Qualifiers: Encounter type: initial encounter Qualified Code(s): S59.901A - Unspecified injury of right elbow, initial encounter Condition: Stable Disposition: HOME, SELF-CARE Additional Instructions: Fractured Radius The bone called the radius is fractured. This type of fracture is typically caused by falling onto the outstretched hand. The fracture is not serious, however, and should heal well with adequate protection. Your physici an's evaluation shows the bone is in good position to heal. A cast or splint is used to protect the fracture. For the first few days after the injury, the arm should be elevated and ice packed. Healing takes from three to eight weeks, depending on the age of the patient and the seriousness of the fracture. Your doctor has explained the treatment plan. It's important that you follow up as instructed to prevent complications. Call the doctor or return at once if severe pain or swelling occur, or if the hand becomes numb, swollen, or discolored. Arthritis Your symptoms are due to arthritis. Arthritis is an inflammation of the joints. There are many types -- osteoarthritis (due to "wear and tear"), auto- immmune arthritis (such as rheumatoid, lupus, Erick's, and others), and crystal-induced arthritis (such as gout and pseudogout). The physician's examination, combined with laboratory tests, will determine the cause of your arthritis. All types of arthritis are treated with antiinflammatory medications. Other medication may be required for special types of arthritis, or if your problem does not respond to the antiinflammatory medicine. Local warmth may be helpful. Move the involved joints through the full range of motion daily. Mild exercise is usually still possible for most persons with arthritis (ask your physician). Swimming provides good exercise without damaging the joints. Contact the physician if you are worsening in any way. Shoulder Injury You have injured your shoulder. This usually results from stretching or tearing of the tendons during trauma. Time and protection are required in order to heal properly. Many injuries are quite disabling, and should be taken seriously. Initial treatment includes cold packs and a sling to rest the shoulder. The physician has assessed the seriousness of your injury, and has outlined a treatment plan. Understand that this treatment may change, depending on how you progress. If a re-examination was recommended, it is important that you follow up as instructed. Some shoulder injuries (such as partial tear of the rotator cuff) are only suspected after you've failed to improve. Call us if there's severe pain, numbness, or loss of function. Splint Pending Casting Your injury can't be casted until the swelling has subsided. Therefore, a temporary splint has been placed to protect the injury. Full use of an injured area is not possible in a splint. You should follow the doctor's instructions concerning rest, ice, and elevation of the injury. Never do anything which causes pain under the splint. Keep the splint on ALL THE TIME until you return for casting. If there is unexpected severe pain, or numbness, discoloration, or swelling beyond the splint, you should return at once. Exercise Program for the Shoulder Since the shoulder moves in so many directions, the joint attachment is weak. Muscles provide most of the stability to the shoulder. You must exercise your shoulder to prevent painful instability or stiffening. PASSIVE - These may be begun within a few days of the injury. While standing, lean forward, allowing the arm to hang down towards the floor. Move the arm in small circles while slowly twisting your chest towards and away from the hanging arm. Do this for one minute. ACTIVE - These may be performed when the doctor gives permission. Begin with the arms at the sides. Raise the arms forward (shoulder's width apart) until they reach shoulder level. Then slowly swing both arms back until they are aiming straight out away from each other. Then bring them forward again, and finally, lower them to your sides. Repeat 20 to 30 times. As you improve, put weights in your hands for the exercise. Start with one pound, and work up to 10 pounds. Never use more than is comfortable. Athletes may work up to 30 pounds. ICE & ELEVATION: Apply ice packs frequently against the painful area. Many different schedules are recommended, such as "20 minutes on, 20 minutes off" or "one hour ice, two hours rest." If you need to work, you may need to go longer between ice treatments. You should plan to have the area ice packed AT LEAST one-fourth of the time. The ice should be applied over the wrap, tape, or splint, or over a layer of cloth -- not directly against the skin. Some ice bags have a built-in cloth and can be put directly on the skin. Your injured part should be elevated as much as possible over the next 48 hours. Try to keep the injury above the level of the heart. Avoid use of the injured area. Elevation and rest will decrease the swelling. USE OF BTFM-NPB-ARWIFOR IBUPROFEN: Ibuprofen (Advil, Nuprin, Medipren, Motrin IB) is a medication for fever and pain control. In addition, it has anti- inflammatory effects which may be beneficial, especially in the treatment of injuries. It's best to take ibuprofen with food. Persons with ulcer disease or allergy to aspirin should notify their physician of this before taking ibuprofen. Ibuprofen can be given every four to six hours, for a total of four doses daily. Age Pain or fever dose Antiinflammatory dose 6-8 yr 200 mg (1 tab) 200 mg (1 tab) 9-11 yr 200 mg (1 tab) 200-400 mg (1-2 tab) 11-14 yr 200-400 mg (1-2 tab) 400 mg (2 tab) 15-adult 400 mg (2 tab) 600 mg (3 tab) You have been given a sling to support the weight of your splint. Please use this while you are up walking around otherwise prop your arm up on a pillow when you are sitting or laying. You were offered a prescription for narcotics but stated you did not like to take narcotics and did not want a prescription for narcotics at this time. FOLLOW-UP CARE: If you have been referred to a physician for follow-up care, call the physicians office for an appointment as you were instructed or within the next two days. If you experience worsening or a significant change in your symptoms, notify the physician immediately or return to the Emergency Department at any time for re-evaluation. Forms: Elevated Blood Pressure, Smoking Cessation Education Referrals: [facility] [NO LOCAL MD] - Follow up as needed VALENTINA LOZANO DO [ACTIVE STAFF] - Follow up as needed
--- NOTE | 2020-11-05 15:24 | RADIOLOGY REPORT (SQ) ---
EXAM DESCRIPTION: ELBOW RIGHT OVER 2 VIEWS IMAGES COMPLETED DATE/TIME: 11/05/2020 3:10 pm REASON FOR STUDY: Fall pain injury COMPARISON: None. NUMBER OF VIEWS: Four views. TECHNIQUE: AP, lateral, and both oblique radiographic images acquired of the right elbow. LIMITATIONS: None. FINDINGS: MINERALIZATION: Normal. BONES: No acute fracture or dislocation. No worrisome bone lesions. JOINT: Marked narrowing at the radial humeral and ulnar humeral joints with osteophytes. Small loos e bodies within the elbow joint. No effusion. SOFT TISSUES: Small right anterior fat pad, suggest an effusion. OTHER: No other significant finding. IMPRESSION: 1. Moderate severe osteoarthrosis at the elbow. 2. No acute osseous findings. 3. Small right anterior fat pad, suggest an effusion. TECHNICAL DOCUMENTATION: JOB ID: [id number] 2010 [employer]- All Rights Reserved Reading location - IP/workstation name: [email or web address]
--- NOTE | 2020-11-05 15:26 | RADIOLOGY REPORT (SQ) ---
EXAM DESCRIPTION: WRIST RIGHT 3 VIEWS IMAGES COMPLETED DATE/TIME: 11/05/2020 3:10 pm REASON FOR STUDY: Fall pain injury COMPARISON: None. NUMBER OF VIEWS: Three views. TECHNIQUE: AP, lateral, and oblique radiographic images acquired of the right wrist. LIMITATIONS: None. FINDINGS: MINERALIZATION: Mild osteopenia. Normal. BONES: Question of nondisplaced intra-articular fracture distal radius. Marked narrowing at the rad ial carpal joint. Diffuse sclerotic changes involving the scaphoid bone may be related to chronic [place] necrosis. There is widening at the scapholunate joint probably on a chronic basis related to lig amentous injury. SOFT TISSUES: No soft tissue swelling. No foreign body. OTHER: No other significant finding. IMPRESSION: 1. Degenerative moderate to moderate severe osteoarthrosis medial aspect of the carpus and at the radial carpal joint. 2. Question of nondisplaced intra-articular distal radius fracture. TECHNICAL DOCUMENTATION: JOB ID: [id number] 2010 [employer]- All Rights Reserved Reading location - IP/workstation name: [email or web address]
--- NOTE | 2020-11-05 15:28 | RADIOLOGY REPORT (SQ) ---
EXAM DESCRIPTION: SHOULDER RIGHT 2 OR MORE VIEWS IMAGES COMPLETED DATE/TIME: 11/05/2020 3:10 pm REASON FOR STUDY: Fall pain injury COMPARISON: None. NUMBER OF VIEWS: Three views. TECHNIQUE: Internal rotation, external rotation, and Y view images acquired of the right shoulder. LIMITATIONS: None. FINDINGS: MINERALIZATION: Normal. BONES: No acute fracture. JOINTS: Mild to moderate acromioclavicular arthrosis. Slight degenerative changes at the glenohumer al joint. No dislocation. VISUALIZED LUNGS AND RIBS: No pneumothorax. No rib fracture. SOFT TISSUES: No radiopaque foreign body. OTHER: No other significant finding. IMPRESSION: 1. No acute osseous findings. 2. Mild to moderate acromioclavicular arthrosis and slight degenerative changes at the glenohumeral joint. TECHNICAL DOCUMENTATION: JOB ID: [id number] 2010 [employer]- All Rights Reserved Reading location - IP/workstation name: [email or web address]
[2020-11-05 16:02] VITALS: BP 148/80
== END 2020-11-05 16:01 | disposition home or self-care (01) ==
LOC: ER 14:26
DX: S52.571A Other intraarticular fracture of lower end of right radius, initial encounter for closed fracture (principal); S49.91XA Unspecified injury of right shoulder and upper arm, initial encounter; S59.901A Unspecified injury of right elbow, initial encounter; W10.9XXA Fall (on) (from) unspecified stairs and steps, initial encounter; M19.021 Primary osteoarthritis, right elbow; M19.031 Primary osteoarthritis, right wrist; M19.011 Primary osteoarthritis, right shoulder; F17.210 Nicotine dependence, cigarettes, uncomplicated; I10 Essential (primary) hypertension; E11.9 Type 2 diabetes mellitus without complications; Z91.018 Allergy to other foods
CPT/HCPCS: 99284

== ENCOUNTER → 2020-11-05 | Outpatient (CLI) | payer OTHER | LOC: CCC 13:29 | PROVIDERS: ATTEND Internal Medicine | DX: E78.5 Hyperlipidemia, unspecified (principal); N30.90 Cystitis, unspecified without hematuria; E06.9 Thyroiditis, unspecified | CPT/HCPCS: 36415; 84132; 84443; 87086 ==

== ENCOUNTER → 2020-11-23 | Outpatient (CLI) | payer OTHER ==
--- NOTE | 2020-11-23 12:31 | RADIOLOGY REPORT (SQ) ---
EXAM DESCRIPTION: WRIST LEFT 2 VIEWS IMAGES COMPLETED DATE/TIME: 11/23/2020 10:08 am REASON FOR STUDY: PAIN COMPARISON: None. NUMBER OF VIEWS: Two views TECHNIQUE: AP and lateral radiographic images acquired of the left wrist. LIMITATIONS: None. FINDINGS: MINERALIZATION: Normal. BONES: No acute fracture or cortical disruption. Joint space narrowing, subchondral sclerosis and cy stic change at the ulna and radioulnar joint. SOFT TISSUES: No soft tissue swelling. No foreign body. OTHER: No other significant finding. IMPRESSION: No acute fracture of the left wrist. 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 TECHNICAL DOCUMENTATION: JOB ID: [id number] 2010 [employer]- All Rights Reserved Reading location - IP/workstation name: [email or web address]
--- NOTE | 2020-11-23 12:31 | RADIOLOGY REPORT (SQ) ---
EXAM DESCRIPTION: ELBOW LEFT AP/LATERAL IMAGES COMPLETED DATE/TIME: 11/23/2020 11:08 am REASON FOR STUDY: PAIN COMPARISON: 11/05/2020 NUMBER OF VIEWS: Two views. TECHNIQUE: AP and lateral radiographic images acquired of the left elbow. LIMITATIONS: None. FINDINGS: MINERALIZATION: Normal. BONES: Degenerative changes. No acute fracture. JOINT: No effusion. SOFT TISSUES: No soft tissue swelling. No foreign body. OTHER: No other significant finding. IMPRESSION: Degenerative changes. No acute fracture. TECHNICAL DOCUMENTATION: JOB ID: [id number] [email or web address]- All Rights Reserved Reading location - IP/workstation name: [email or web address]
--- NOTE | 2020-11-23 12:32 | RADIOLOGY REPORT (SQ) ---
EXAM DESCRIPTION: SHOULDER LEFT 2 OR MORE VIEWS IMAGES COMPLETED DATE/TIME: 11/23/2020 10:08 am REASON FOR STUDY: PAIN COMPARISON: None. NUMBER OF VIEWS: Three views. TECHNIQUE: Internal rotation, external rotation, and Y view images acquired of the left shoulder. LIMITATIONS: None. FINDINGS: MINERALIZATION: Normal. BONES: No acute fracture or cortical disruption. Mild osteoarthritis of the glenohumeral joint with subchondral sclerosis and cystic change at the humeral head. No lytic or blastic bone lesion. JOINTS: Mild osteoarthritis at the acromioclavicular joint. No dislocation. VISUALIZED LUNGS AND RIBS: No pneumothorax. No rib fracture. SOFT TISSUES: No radiopaque foreign body. OTHER: No other significant finding. IMPRESSION: No acute fracture or dislocation of the left shoulder. Mild osteoarthritis at the acrom ioclavicular and glenohumeral joints. TECHNICAL DOCUMENTATION: JOB ID: [id number] 2010 [employer]- All Rights Reserved Reading location - IP/workstation name: [email or web address]
== END ==
LOC: RAD 10:29
PROVIDERS: ATTEND Internal Medicine
DX: M19.012 Primary osteoarthritis, left shoulder (principal); M19.032 Primary osteoarthritis, left wrist; M19.022 Primary osteoarthritis, left elbow